=== PATIENT | female | born 1960 | race Caucasian/White ===

== ENCOUNTER → 2016-10-30 | Outpatient (CLI) | payer OTHER ==
--- NOTE | 2016-10-31 15:44 | Diagnostic Imaging Report ---
Bilateral screening mammogram 2D views with tomosynthesis The current study was also evaluated with a Computer Aided Detection (CAD) system. INDICATION: Screening. No current complaints stated on the questionnaire. COMPARISON: None. This is a baseline exam. FINDINGS: The breasts are composed of heterogeneously dense parenchyma which may decrease mammographic sensitivity. There are benign-appearing calcifications. IMPRESSION: Dense fibroglandular tissues with no definite focal lesion identified. Annual screening mammogram is recommended. ACR BI-RADS Category 2: Benign findings. Result letter will be mailed to the patient. Note: At least 10% of breast cancer is not imaged by mammography. Dictated by: Dictated on workstation # [id number]
== END ==
LOC: RAD 07:56 → EDUNIT# 10:15
PROVIDERS: ATTEND Nurse Practitioner Family
DX: Z12.31 Encounter for screening mammogram for malignant neoplasm of breast (principal)
CPT/HCPCS: 77067

== ENCOUNTER → 2016-10-30 | Outpatient (CLI) | payer OTHER ==
--- NOTE | 2016-10-30 09:23 | Diagnostic Imaging Report ---
INDICATION: Abnormal lab work. TECHNIQUE: Multiple real-time alvarado scale sonographic images of the abdomen. CORRELATION STUDY: None FINDINGS: LIVER: 17 cm in length. Normal echotexture. GALLBLADDER: There is presence of multiple gallstones. This predominately fills the gallbladder lumen and are non-mobile. There is gallbladder wall thickening at 3-4 mm. The gallstones largely shadow the gallbladder wall. COMMON BILE DUCT: Normal at 5 mm. PANCREAS: Largely obscured by overlying bowel gas. SPLEEN: Enlarged at 18.2 x 7.0 x 7.2 cm. ABDOMINAL AORTA: Unremarkable, nonaneurysmal. INFERIOR VENA CAVA: Limited in visualization. RIGHT KIDNEY: 9.5 cm. Unremarkable. LEFT KIDNEY: 9.8 cm. Unremarkable. ASCITES: None. IMPRESSION: 1. Cholelithiasis, with multiple gallstones essentially filling the lumen of the gallbladder. There is gallbladder wall thickening which may reflect changes of chronic cholecystitis. No significant bile duct dilatation. 2. Splenomegaly. Etiology or significance indeterminate. Dictated by: Dictated on workstation # [id number]
== END ==
LOC: RAD 07:54
PROVIDERS: ATTEND Nurse Practitioner Family
DX: K80.20 Calculus of gallbladder without cholecystitis without obstruction (principal); R16.1 Splenomegaly, not elsewhere classified; E80.4 Gilbert syndrome
CPT/HCPCS: 76700

== ENCOUNTER → 2017-01-08 | Outpatient (CLI) | payer OTHER | LOC: LAB 12:12 | PROVIDERS: ATTEND Nurse Practitioner Family | DX: R76.8 Other specified abnormal immunological findings in serum; R17 Unspecified jaundice; R16.1 Splenomegaly, not elsewhere classified | CPT/HCPCS: 36415; 82595 ==

== ENCOUNTER 2017-04-08 08:51 | Outpatient (CLI) | payer SELFPAY ==
[~2017-04-08] VITALS: Ht 154.9 cm; Wt 66.7 kg
== END 2017-04-08 08:53 ==
LOC: PREOP 08:51
PROVIDERS: ATTEND Surgery
DX: Z01.818 Encounter for other preprocedural examination (principal); E80.6 Other disorders of bilirubin metabolism

== ENCOUNTER 2017-04-18 10:10 | Outpatient (RCR) | payer OTHER ==
[2017-01-24 11:00] LABS: BILIRUBIN,DIRECT 0.4 MG/DL (0.0-0.3)
[2017-02-07 12:18] LABS: ABSOLUTE RETIC # 92 10e9/L (24-90); BASOPHILS # (AUTO) 0.1 10^3/uL (0.0-0.1); BASOPHILS % (AUTO) 1 % (0-10); EOSINOPHILS # (AUTO) 0.2 10^3/uL (0.0-0.3); EOSINOPHILS % (AUTO) 2 % (0-10); HEMATOCRIT 39 % (35-52); LYMPHOCYTES # (AUTO) 1.5 X 10^3 (1.0-4.0); LYMPHOCYTES % (AUTO) 23 % (12-44); MEAN CORPUSCULAR HEMOGLOBIN 30 PG (25-34); MEAN CORPUSCULAR HGB CONC 34 G/DL (32-36); MEAN CORPUSCULAR VOLUME 89 FL (80-99); MEAN PLATELET VOLUME 10.7 FL (7.4-10.4); MONOCYTES # (AUTO) 0.4 X 10^3 (0.0-1.0); MONOCYTES % (AUTO) 7 % (0-12); NEUTROPHILS # (AUTO) 4.3 X 10^3 (1.8-7.8); NEUTROPHILS % (AUTO) 67 % (42-75); PLATELET COUNT 234 10^3/uL (130-400); RED BLOOD COUNT 4.34 10^6/uL (4.35-5.85); RED CELL DISTRIBUTION WIDTH 20.1 % (10.0-14.5); RETICULOCYTE % 2.12 % (0.50-2.40); WHITE BLOOD COUNT 6.4 10^3/uL (4.3-11.0)
[2017-02-07 12:25] LABS: BILIRUBIN,URINE NEGATIVE (NEGATIVE); CLARITY,URINE CLEAR; COLOR,URINE YELLOW; GLUCOSE, URINE (UA) NEGATIVE (NEGATIVE); KETONES,URINE NEGATIVE (NEGATIVE); LEUKOCYTE ESTERASE ,URINE 1+ (NEGATIVE); NITRITE,URINE NEGATIVE (NEGATIVE); PH,URINE 6.5 (5-9); PROTEIN,URINE NEGATIVE (NEGATIVE); UROBILINOGEN,URINE NORMAL (NORMAL)
[2017-02-07 12:36] LABS: BACTERIA,URINE NEGATIVE /HPF; SQUAMOUS EPITHELIAL CELL,UR 0-2 /HPF; WBC,URINE 0-2 /HPF
[2017-02-07 12:38] LABS: ALANINE AMINOTRANSFERASE 14 U/L (0-55); ALBUMIN 4.5 GM/DL (3.2-4.5); ALKALINE PHOSPHATASE 77 U/L (40-136); BILIRUBIN,DIRECT 0.4 MG/DL (0.0-0.3); BILIRUBIN,TOTAL 4.1 MG/DL (0.1-1.0); BUN/CREATININE RATIO 7; CALCIUM 9.4 MG/DL (8.5-10.1); CARBON DIOXIDE 29 MMOL/L (21-32); CHLORIDE 103 MMOL/L (98-107); CREATININE SERUM 0.75 MG/DL (0.60-1.30); ERYTHROCYTE SEDIMENTATION RATE 8 MM/HR (0-30); GFR ESTIMATED > 60; GLUCOSE 103 MG/DL (70-105); POTASSIUM 3.9 MMOL/L (3.6-5.0); SODIUM 140 MMOL/L (135-145)
[2017-02-07 12:47] LABS: ANISOCYTOSIS MODERATE; EOSINOPHILS % (MANUAL) 2 %; LYMPHOCYTES % (MANUAL) 20 %; MONOCYTES % (MANUAL) 8 %; NEUTROPHILS % (MANUAL) 70 %
[2017-03-13 10:53] LABS: ABSOLUTE RETIC # 105 10e9/L (24-90); BASOPHILS # (AUTO) 0.1 10^3/uL (0.0-0.1); BASOPHILS % (AUTO) 1 % (0-10); EOSINOPHILS # (AUTO) 0.3 10^3/uL (0.0-0.3); EOSINOPHILS % (AUTO) 4 % (0-10); HEMATOCRIT 39 % (35-52); HEMOGLOBIN 12.6 G/DL (11.5-16.0); LYMPHOCYTES # (AUTO) 1.2 X 10^3 (1.0-4.0); LYMPHOCYTES % (AUTO) 19 % (12-44); MEAN CORPUSCULAR HEMOGLOBIN 29 PG (25-34); MEAN CORPUSCULAR HGB CONC 32 G/DL (32-36); MEAN CORPUSCULAR VOLUME 90 FL (80-99); MEAN PLATELET VOLUME 10.4 FL (7.4-10.4); MONOCYTES # (AUTO) 0.6 X 10^3 (0.0-1.0); MONOCYTES % (AUTO) 9 % (0-12); NEUTROPHILS # (AUTO) 4.4 X 10^3 (1.8-7.8); NEUTROPHILS % (AUTO) 68 % (42-75); PLATELET COUNT 245 10^3/uL (130-400); RED BLOOD COUNT 4.34 10^6/uL (4.35-5.85); RED CELL DISTRIBUTION WIDTH 20.9 % (10.0-14.5); RETICULOCYTE % 2.41 % (0.50-2.40); WHITE BLOOD COUNT 6.5 10^3/uL (4.3-11.0)
[2017-03-13 11:19] LABS: ALANINE AMINOTRANSFERASE 11 U/L (0-55); ALBUMIN 4.1 GM/DL (3.2-4.5); ALKALINE PHOSPHATASE 80 U/L (40-136); BILIRUBIN,TOTAL 3.5 MG/DL (0.1-1.0); BUN/CREATININE RATIO 8; CALCIUM 9.2 MG/DL (8.5-10.1); CARBON DIOXIDE 33 MMOL/L (21-32); CHLORIDE 103 MMOL/L (98-107); CREATININE SERUM 0.74 MG/DL (0.60-1.30); GFR ESTIMATED > 60; GLUCOSE 129 MG/DL (70-105); SODIUM 141 MMOL/L (135-145); TOTAL PROTEIN 6.7 GM/DL (6.4-8.2)
[2017-03-13 11:34] LABS: BAND NEUTROPHILS 1 %; BASOPHILS % (MANUAL) 0 %; EOSINOPHILS % (MANUAL) 6 %; LYMPHOCYTES % (MANUAL) 14 %; MONOCYTES % (MANUAL) 9 %; NEUTROPHILS % (MANUAL) 70 %
[2017-03-13 11:35] LABS: ANISOCYTOSIS MODERATE; MICROCYTOSIS SLIGHT; POLYCHROMASIA SLIGHT
[2017-04-18 10:41] LABS: BASOPHILS # (AUTO) 0.1 10^3/uL (0.0-0.1); BASOPHILS % (AUTO) 1 % (0-10); EOSINOPHILS # (AUTO) 0.2 10^3/uL (0.0-0.3); EOSINOPHILS % (AUTO) 4 % (0-10); HEMATOCRIT 32 % (35-52); HEMOGLOBIN 11.1 G/DL (11.5-16.0); LYMPHOCYTES # (AUTO) 1.1 X 10^3 (1.0-4.0); LYMPHOCYTES % (AUTO) 22 % (12-44); MEAN CORPUSCULAR HEMOGLOBIN 29 PG (25-34); MEAN CORPUSCULAR HGB CONC 34 G/DL (32-36); MEAN CORPUSCULAR VOLUME 85 FL (80-99); MEAN PLATELET VOLUME 10.3 FL (7.4-10.4); MONOCYTES # (AUTO) 0.3 X 10^3 (0.0-1.0); MONOCYTES % (AUTO) 6 % (0-12); NEUTROPHILS # (AUTO) 3.2 X 10^3 (1.8-7.8); NEUTROPHILS % (AUTO) 67 % (42-75); PLATELET COUNT 221 10^3/uL (130-400); RED BLOOD COUNT 3.81 10^6/uL (4.35-5.85); RED CELL DISTRIBUTION WIDTH 19.9 % (10.0-14.5); WHITE BLOOD COUNT 4.8 10^3/uL (4.3-11.0)
[2017-04-18 10:58] LABS: ALANINE AMINOTRANSFERASE 16 U/L (0-55); ALBUMIN 4.2 GM/DL (3.2-4.5); ALKALINE PHOSPHATASE 79 U/L (40-136); BILIRUBIN,TOTAL 4.2 MG/DL (0.1-1.0); BUN/CREATININE RATIO 7; CALCIUM 9.4 MG/DL (8.5-10.1); CARBON DIOXIDE 30 MMOL/L (21-32); CHLORIDE 100 MMOL/L (98-107); CREATININE SERUM 0.71 MG/DL (0.60-1.30); GFR ESTIMATED > 60; GLUCOSE 115 MG/DL (70-105); POTASSIUM 3.8 MMOL/L (3.6-5.0); SODIUM 140 MMOL/L (135-145); TOTAL PROTEIN 6.6 GM/DL (6.4-8.2)
== END 2017-04-24 | disposition home or self-care (01) ==
LOC: ONC 10:10
PROVIDERS: ATTEND Internal Medicine Hematology & Oncology
DX: E80.6 Other disorders of bilirubin metabolism (principal); R17 Unspecified jaundice; I10 Essential (primary) hypertension; J44.9 Chronic obstructive pulmonary disease, unspecified; F17.210 Nicotine dependence, cigarettes, uncomplicated
CPT/HCPCS: 36415; 80053; 81000; 82247; 82248; 82595; 82784; 82955; 83010; 83070; 83615; 84155; 84165; 85007; 85025; 85027; 85045; 85652; 86038; 86141; 86157; 86160; 86225; 86430; 86703; 86880; 99213; 99214

== ENCOUNTER 2017-04-25 20:02 | Observation (INO) | payer SELFPAY ==
[~2017-04-25] VITALS: Ht 152.4 cm; Wt 63.5 kg
[2017-04-25] MEDS ORDERED: NS IV 1000 ML 1,000 ML IV STA (20:08)
--- OUTSIDE RECORDS SUMMARY | 2017-04-25 20:08 | XMS REPORT | Continuity of Care Document ---
Author Author [facility] Address Unknown Phone Unavailable Allergies Active Description Code Type Severity Reaction Onset Reported/Identified Relationship to Patient Clinical Status Yes Penicillins Drug Allergy N/A N/A 04/05/2009 Medications There is no data. 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 01/15/2010 COREY MORALEZ DO 110.5 DERMATOPHYTOSIS OF THE BODY 01/15/2010 COREY MORALEZ DO 110.5 DERMATOPHYTOSIS OF THE BODY 01/23/2011 COREY MORALEZ DO 110.2 DERMATOPHYTOSIS OF HAND 01/23/2011 COREY MORALEZ DO 110.2 DERMATOPHYTOSIS OF HAND 06/18/2014 COREY MORALEZ DO 692.9 DERMATITIS CONTACT UNSPECIFIED 06/18/2014 COREY MORALEZ DO 692.9 DERMATITIS CONTACT UNSPECIFIED 07/06/2014 COREY MORALEZ DO 698.9 UNSPECIFIED PRURITIC DISORDER 07/06/2014 COREY MORALEZ DO 698.9 UNSPECIFIED PRURITIC DISORDER 07/11/2014 COREY MORALEZ DO 112.3 CANDIDIASIS OF SKIN AND NAILS 07/11/2014 COREY MORALEZ DO 691.8 ECZEMA- ATOPIC Procedures There is no data. Results There is no data. Encounters ACCT No. Visit Date/Time Discharge Status Pt. Type Provider Facility Loc./Unit Complaint [id number] 07/11/2014 15:02:00 07/11/2014 23:59:59 [facility] Outpatient COREY MORALEZ DO [id number] 07/06/2014 08:44:00 07/06/2014 23:59:59 [facility] Outpatient COREY MORALEZ DO
[2017-04-25] MEDS ORDERED: ONDANSETRON 4 MG/2 ML (SDV) Z0FRAN IVP ONE (20:15)
[2017-04-25 20:16] LABS: BASOPHILS % (AUTO) 0 % (0-10); EOSINOPHILS % (AUTO) 0 % (0-10); HEMATOCRIT 33 % (35-52); HEMOGLOBIN 11.6 G/DL (11.5-16.0); LYMPHOCYTES # (AUTO) 0.5 X 10^3 (1.0-4.0); LYMPHOCYTES % (AUTO) 5 % (12-44); MEAN CORPUSCULAR HEMOGLOBIN 30 PG (25-34); MEAN CORPUSCULAR HGB CONC 36 G/DL (32-36); MEAN CORPUSCULAR VOLUME 84 FL (80-99); MEAN PLATELET VOLUME 11.3 FL (7.4-10.4); MONOCYTES # (AUTO) 0.6 X 10^3 (0.0-1.0); MONOCYTES % (AUTO) 6 % (0-12); NEUTROPHILS # (AUTO) 8.5 X 10^3 (1.8-7.8); NEUTROPHILS % (AUTO) 89 % (42-75); PLATELET COUNT 179 10^3/uL (130-400); RED BLOOD COUNT 3.88 10^6/uL (4.35-5.85); RED CELL DISTRIBUTION WIDTH 20.8 % (10.0-14.5); WHITE BLOOD COUNT 9.6 10^3/uL (4.3-11.0)
[2017-04-25 20:27] LABS: CLARITY,URINE SLIGHTLY CLOUDY; COLOR,URINE AMBER; GLUCOSE, URINE (UA) NEGATIVE (NEGATIVE); KETONES,URINE 1+ (NEGATIVE); LEUKOCYTE ESTERASE ,URINE 3+ (NEGATIVE); NITRITE,URINE POSITIVE (NEGATIVE); PH,URINE 5 (5-9); PROTEIN,URINE 2+ (NEGATIVE); UROBILINOGEN,URINE 4 MG/DL (NORMAL)
[2017-04-25 20:33] LABS: BAND NEUTROPHILS 20 %; BASOPHILS % (MANUAL) 1 %; EOSINOPHILS % (MANUAL) 0 %; LYMPHOCYTES % (MANUAL) 5 %; MONOCYTES % (MANUAL) 3 %; NEUTROPHILS % (MANUAL) 71 %; RBC MORPH NORMAL
[2017-04-25 20:40] LABS: BACTERIA,URINE MODERATE /HPF; BILIRUBIN,URINE 1+ (NEGATIVE); SQUAMOUS EPITHELIAL CELL,UR 0-2 /HPF; WBC,URINE 50-100 /HPF
[2017-04-25 20:40] LABS: ALBUMIN 3.8 GM/DL (3.2-4.5); BILIRUBIN,TOTAL 10.2 MG/DL (0.1-1.0); POTASSIUM 4.1 MMOL/L (3.6-5.0); TOTAL PROTEIN 6.3 GM/DL (6.4-8.2)
--- NOTE | 2017-04-25 20:42 | ED GI ---
General Chief Complaint: Abdominal/GI Problems Stated Complaint: N/V Nursing Triage Note: PATIENT STATES SHE HAS BEEN HAVING NAUSEA NAD VOMITING X3 DAYS. 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 Sepsis Screen: No Definite Risk Source of Information: Patient, EMS Exam Limitations: No Limitations History of Present Illness Date Seen by Provider: Apr 25, 2017 Time Seen By Provider: 20:15 Initial Comments Here with report of nausea and vomiting that has increased over the last 3 days. Ultimately required EMS transport here due to nausea and vomiting. She is better now. Patient is jaundiced and has ongoing workup for elevated bilirubin. She follows with the cancer center with Dr. Rincon. She has not had anything for nausea. Denies fever or chills. Does report dysuria for the past several days. Timing/Duration: 2-3 Days Severity/Quality: Moderate, Other (nausea and vomiting) Location: Generalized Abdomen Radiation: No Radiation Activities at Onset: None Modifying Factors: Worsens With Eating, Improves With Vomiting Associated Symptoms: No Back Pain, No Chest Pain, No Fever/Chills, Fatigue, Nausea/Vomiting, No Shortness of Air, Weakness Allergies and Home Medications Allergies Coded Allergies: Penicillins (Verified Allergy, Unknown, 04/08/17) latex (Verified Allergy, Unknown, RASH, 04/08/17) Review of Systems Constitutional: see HPI, No chills, No fever, weakness EENTM: No Symptoms Reported Respiratory: No Symptoms Reported Cardiovascular: No Symptoms Reported Gastrointestinal: See HPI, Denies Diarrhea, Nausea, Vomiting Genitourinary: No Symptoms Reported Musculoskeletal: no symptoms reported Skin: no symptoms reported All Other Systems Reviewed Negative Unless Noted: Yes Past Rjamsah-Tzwzqz-Urzbvs Hx Patient Social History Alcohol Use: Denies Use Recreational Drug Use: No Smoking Status: Current Everyday Smoker Type Used: Cigarettes 2nd Hand Smoke Exposure: Yes Recent Foreign Travel: No Contact w/Someone Who Travel: No Recent Infectious Disease Expo: No Recent Hopitalizations: No Seasonal Allergies Seasonal Allergies: No Surgeries History of Surgeries: Yes Surgeries: Tubal Ligation Respiratory History of Respiratory Disorde: Yes Respiratory Disorders: COPD Cardiovascular History of Cardiac Disorders: No (possible hypertension) Neurological History of Neurological Disord: No Gastrointestinal History of Gastrointestinal Di: Yes (hyperbilirubinemia, jaundice) Musculoskeletal History of Musculoskeletal Dis: No Endocrine History of Endocrine Disorders: No Cancer History of Cancer: No Psychosocial History of Psychiatric Problem: No Integumentary History of Skin or Integumenta: Yes Skin/Integumentary Disorders: Eczema Blood Transfusions History of Blood Disorders: Yes (anemia) Reviewed Nursing Assessment Reviewed/Agree w Nursing PMH: Yes Family Medical History Significant Family History: No Pertinent Family Hx Physical Exam Vital Signs VS - Last 72 Hours, by Label 04/25/17 20:12 Temp 100.3 Pulse 118 Resp 20 B/P (MAP) Pulse Ox 97 O2 Delivery Room Air Capillary Refill : Less Than 3 Seconds General Appearance: WD/WN, no apparent distress HEENT: PERRL/EOMI, normal ENT inspection, pharynx normal, scleral icterus (R), scleral icterus (L) Neck: full range of motion, supple Respiratory: lungs clear, normal breath sounds Cardiovascular: no murmur, tachycardia Gastrointestinal: non tender, soft Extremities: non-tender, normal inspection Back: normal inspection, no CVA tenderness, no vertebral tenderness Neurologic/Psychiatric: alert, normal mood/affect, oriented x 3 Skin: warm/dry, jaundice Progress/Results/Core Measures Results/Orders Lab Results Laboratory Tests Test 04/25/17 20:08 04/25/17 20:20 Range/Units White Blood Count 9.6 4.3-11.0 10^3/uL Red Blood Count 3.88 L 4.35-5.85 10^6/uL Hemoglobin 11.6 11.5-16.0 G/DL Hematocrit 33 L 35-52 % Mean Corpuscular Volume 84 80-99 FL Mean Corpuscular Hemoglobin 30 25-34 PG Mean Corpuscular Hemoglobin Concent 36 32-36 G/DL Red Cell Distribution Width 20.8 H 10.0-14.5 % Platelet Count 179 130-400 10^3/uL Mean Platelet Volume 11.3 H 7.4-10.4 FL Neutrophils (%) (Auto) 89 H 42-75 % Lymphocytes (%) (Auto) 5 L 12-44 % Monocytes (%) (Auto) 6 0-12 % Eosinophils (%) (Auto) 0 0-10 % Basophils (%) (Auto) 0 0-10 % Neutrophils # (Auto) 8.5 H 1.8-7.8 X 10^3 Lymphocytes # (Auto) 0.5 L 1.0-4.0 X 10^3 Monocytes # (Auto) 0.6 0.0-1.0 X 10^3 Eosinophils # (Auto) 0.0 0.0-0.3 10^3/uL Basophils # (Auto) 0.0 0.0-0.1 10^3/uL Neutrophils % (Manual) 71 % Lymphocytes % (Manual) 5 % Monocytes % (Manual) 3 % Eosinophils % (Manual) 0 % Basophils % (Manual) 1 % Band Neutrophils 20 % Blood Morphology Comment NORMAL Sodium Level 136 135-145 MMOL/L Potassium Level 4.1 3.6-5.0 MMOL/L Chloride Level 97 L 98-107 MMOL/L Carbon Dioxide Level 25 21-32 MMOL/L Anion Gap 14 5-14 MMOL/L Blood Urea Nitrogen 27 H 7-18 MG/DL Creatinine 1.00 0.60-1.30 MG/DL Estimat Glomerular Filtration Rate 58 BUN/Creatinine Ratio 27 Glucose Level 129 H 70-105 MG/DL Calcium Level 9.0 8.5-10.1 MG/DL Total Bilirubin 10.2 H 0.1-1.0 MG/DL Aspartate Amino Transf (AST/SGOT) 27 5-34 U/L Alanine Aminotransferase (ALT/SGPT) 15 0-55 U/L Alkaline Phosphatase 73 40-136 U/L C-Reactive Protein High Sensitivity 23.40 H 0.00-0.50 MG/DL Total Protein 6.3 L 6.4-8.2 GM/DL Albumin 3.8 3.2-4.5 GM/DL Urine Color DAVID H Urine Clarity SLIGHTLY CLOUDY Urine pH 5 5-9 Urine Specific [place] 1.020 1.016-1.022 Urine Protein 2+ H NEGATIVE Urine Glucose (UA) NEGATIVE NEGATIVE Urine Ketones 1+ H NEGATIVE Urine Nitrite POSITIVE H NEGATIVE Urine Bilirubin 1+ H NEGATIVE Urine Urobilinogen 4 H NORMAL MG/DL Urine Leukocyte Esterase 3+ H NEGATIVE Urine RBC (Auto) 3+ H NEGATIVE Urine RBC 5-10 H /HPF Urine WBC 50-100 H /HPF Urine Squamous Epithelial Cells 0-2 /HPF Urine Crystals NONE /LPF Urine Bacteria MODERATE H /HPF Urine Casts NONE /LPF Urine Mucus NEGATIVE /LPF Urine Culture Indicated YES My Orders Orders - BRIAN DENNY MD Ondansetron Injection (Zofran Injectio (04/25/17 20:15) Saline Lock/Iv-Start (04/25/17 20:08) Cbc With Automated Diff (04/25/17 20:08) Comprehensive Metabolic Panel (04/25/17 20:08) Hs C Reactive Protein (04/25/17 20:08) Ua Culture If Indicated (04/25/17 20:08) Ns Iv 1000 Ml (Sodium Chloride 0.9%) (04/25/17 20:08) Manual Differential (04/25/17 20:08) Urine Culture (04/25/17 20:20) Ceftriaxone Injection (Rocephin Injectio (04/25/17 21:15) Lactic Acid Analyzer (04/25/17 22:07) Blood Culture (04/25/17 22:07) Medications Given in ED Current Medications Medications Dose Ordered Sig/Diana Route Start Time Stop Time Status Last Admin Dose Admin Ceftriaxone Sodium 1000 mg/ Dextrose/Water 50 ml @ 100 mls/hr ONCE ONCE IV 04/25/17 21:15 04/25/17 21:44 DC 04/25/17 21:22 100 MLS/HR Ondansetron HCl 4 mg ONCE ONCE IVP 04/25/17 20:15 04/25/17 20:16 DC 04/25/17 20:27 4 MG Vital Signs/I&O Vital Sign - Last 12Hours 04/25/17 20:12 Temp 100.3 Pulse 118 Resp 20 B/P (MAP) Pulse Ox 97 O2 Delivery Room Air Progress Note : Progress Note Seen and evaluated. IV, labs, UA, saline 1 L bolus, Zofran 4 mg IV ordered. Monitor patient. Rocephin 1 g IV for urinary tract infection. We will continue outpatient treatment. All of findings and concerns discussed with patient. She agrees with plan. 2202: Patient still feeling not well. Definitely has urinary tract infection. In reviewing her labs, CRP is quite elevated at greater than 20. Patient has elevated bilirubin but has known bilirubin disorder that is being worked up. It is higher than previous. She is better with fluids but I am concerned about the urinary tract infection and her ability to tolerate oral antibiotics and given her other underlying disorders, admission seems more appropriate at this point. I did discuss the case with Dr. Rogers, on-call for [facility]. He agrees to admission. We will continue IV antibiotics and continue hydration and recheck labs. We did not get blood cultures and lactic acid before antibiotics as patient was going to be discharged home with planned changed. We will draw blood cultures and lactic acid now. Departure Communication (Admissions) Time/Spoke to Admitting Phy: 22:02 Impression Impression: Primary Impression: Urinary tract infection Qualified Codes: N30.00 - Acute cystitis without hematuria Additional Impression: Nausea and vomiting Qualified Codes: R11.2 - Nausea with vomiting, unspecified Disposition: ADMITTED INPATIENT Condition: Stable Admissions Decision to Admit Reason: Admit from ER (General) Decision to Admit/Date: Apr 25, 2017 Time/Decision to Admit Time: 22:02 Departure-Patient Inst. Referrals: COREY MORALEZ DO (PCP) Primary Care Physician JHON HERNANDEZ (Family) Primary Care Physician Patient Instructions: Nausea and Vomiting, Adult (DC), Urinary Tract Infection , Adult (DC) Add. Discharge Instructions: All discharge instructions reviewed with patient and/or family. Voiced understanding. BRIAN DENNY MD Apr 25, 2017 20:42
[2017-04-25] MEDS ORDERED: cefTRIAXone INJECTION 1,000 MG in D5W 50 ML IVPB SOLUTION 50 ML IV ONE (21:15)
[2017-04-26] VITALS: BP 106/64
[2017-04-26] MEDS ORDERED: RT-ALBUTEROL SULF 2.5 MG/3 ML PRE-MIX VIAL INH PRN (01:00)
[2017-04-26] MEDS: ONDANSETRON 4 MG/2 ML (SDV) Z0FRAN IVP PRN ×2 (01:09→09:11)
[2017-04-26] MEDS: NS IV 1000 ML 1,000 ML IV SCH ×3 (01:09→17:23)
[2017-04-26] MEDS: IBUPROFEN 600 MG (MOTRIN) TAB PO PRN ×2 (01:10→20:01)
[2017-04-26 04:25] VITALS: BP 102/63
[2017-04-26 05:59] LABS: BASOPHILS % (AUTO) 0 % (0-10); EOSINOPHILS % (AUTO) 0 % (0-10); HEMATOCRIT 26 % (35-52); HEMOGLOBIN 9.1 G/DL (11.5-16.0); LYMPHOCYTES # (AUTO) 0.6 X 10^3 (1.0-4.0); LYMPHOCYTES % (AUTO) 11 % (12-44); MEAN CORPUSCULAR HEMOGLOBIN 29 PG (25-34); MEAN CORPUSCULAR HGB CONC 35 G/DL (32-36); MEAN CORPUSCULAR VOLUME 85 FL (80-99); MEAN PLATELET VOLUME 10.9 FL (7.4-10.4); MONOCYTES # (AUTO) 0.3 X 10^3 (0.0-1.0); MONOCYTES % (AUTO) 5 % (0-12); NEUTROPHILS # (AUTO) 4.7 X 10^3 (1.8-7.8); NEUTROPHILS % (AUTO) 84 % (42-75); PLATELET COUNT 152 10^3/uL (130-400); RED CELL DISTRIBUTION WIDTH 20.5 % (10.0-14.5); WHITE BLOOD COUNT 5.6 10^3/uL (4.3-11.0)
[2017-04-26 06:35] LABS: ALANINE AMINOTRANSFERASE 11 U/L (0-55); ALBUMIN 3.1 GM/DL (3.2-4.5); ALKALINE PHOSPHATASE 52 U/L (40-136); BILIRUBIN,TOTAL 7.1 MG/DL (0.1-1.0); BUN/CREATININE RATIO 26; CALCIUM 8.3 MG/DL (8.5-10.1); CARBON DIOXIDE 24 MMOL/L (21-32); CHLORIDE 102 MMOL/L (98-107); CREATININE SERUM 0.78 MG/DL (0.60-1.30); GFR ESTIMATED > 60; GLUCOSE 108 MG/DL (70-105); POTASSIUM 3.8 MMOL/L (3.6-5.0); SODIUM 136 MMOL/L (135-145); TOTAL PROTEIN 5.3 GM/DL (6.4-8.2)
--- NOTE | 2017-04-26 06:39 | Diagnostic Imaging Report ---
INDICATION: Cough with leg swelling and abdominal pain. Comparison with previous CT of the chest from 02/12/2017. FINDINGS: Portable chest shows the lungs to be well-aerated. There are no infiltrates. No masses are present. No hilar adenopathy. Aorta is not enlarged. No evidence of pulmonary edema. No pneumothorax or pleural effusions. Thoracic aortic aneurysm again noted as reported on CT along the aortic root. IMPRESSION: Ascending aortic root aneurysm with no acute changes demonstrated. Dictated by: Dictated on workstation # [id number]
--- NOTE | 2017-04-26 07:04 | History & Physicial ([facility]S) ---
HPI History of Present Illness: 56-year-old female admitted through via [facility] emergency department during the evening of April 25, 2017 after having nausea and vomiting for the previous 3 days. Patient was brought to the emergency department via EMS. She does report going to [facility] and has been receiving medical care for jaundice and elevated bilirubin which is not yet explained according to patient. She does report she has had uncomfortable feeling when urination over the past several days. There is been no reports of any fever or chilling. Source: patient Exam Limitations: clinical condition Date seen by provider: Apr 26, 2017 Time Seen by Provider: 07:00 Attending Physician Mariana Leonard DO PCP Mariana Leonard DO Consult Date of Admission Apr 25, 2017 at 22:20 Home Medications Home Medications Reviewed patient Home Medication Reconciliation Form Allergies Coded Allergies: Penicillins (Verified Allergy, Unknown, 04/08/17) latex (Verified Allergy, Unknown, RASH, 04/08/17) XBA-Ihfnga-Rkrnrd Hx Patient Social History Alcohol Use: Denies Use Recreational Drug Use: No Smoking Status: Current Everyday Smoker Type Used: Cigarettes 2nd Hand Smoke Exposure: Yes Recent Foreign Travel: No Contact w/other who traveled: No Recent Hopitalizations: No Recent Infectious Disease Expo: No Physical Abuse Screen: No Sexual Abuse: No Family Medical History Significant Family History: No Pertinent Family Hx Family History: Alcoholism 19 FATHER Arthritis 19 MOTHER G8 BROTHER Diabetes mellitus 19 MOTHER G8 BROTHER G8 SISTER Review of Systems ([facility]) Constitutional: see HPI Reviewed Test Results Reviewed Test Results Lab Laboratory Tests Test 04/25/17 20:08 04/25/17 20:20 04/25/17 22:35 04/26/17 05:46 Range/Units White Blood Count 9.6 5.6 4.3-11.0 10^3/uL Red Blood Count 3.88 L 3.10 L 4.35-5.85 10^6/uL Hemoglobin 11.6 9.1 #L 11.5-16.0 G/DL Hematocrit 33 L 26 L 35-52 % Mean Corpuscular Volume 84 85 80-99 FL Mean Corpuscular Hemoglobin 30 29 25-34 PG Mean Corpuscular Hemoglobin Concent 36 35 32-36 G/DL Red Cell Distribution Width 20.8 H 20.5 H 10.0-14.5 % Platelet Count 179 152 130-400 10^3/uL Mean Platelet Volume 11.3 H 10.9 H 7.4-10.4 FL Neutrophils (%) (Auto) 89 H 84 H 42-75 % Lymphocytes (%) (Auto) 5 L 11 L 12-44 % Monocytes (%) (Auto) 6 5 0-12 % Eosinophils (%) (Auto) 0 0 0-10 % Basophils (%) (Auto) 0 0 0-10 % Neutrophils # (Auto) 8.5 H 4.7 1.8-7.8 X 10^3 Lymphocytes # (Auto) 0.5 L 0.6 L 1.0-4.0 X 10^3 Monocytes # (Auto) 0.6 0.3 0.0-1.0 X 10^3 Eosinophils # (Auto) 0.0 0.0 0.0-0.3 10^3/uL Basophils # (Auto) 0.0 0.0 0.0-0.1 10^3/uL Neutrophils % (Manual) 71 % Lymphocytes % (Manual) 5 % Monocytes % (Manual) 3 % Eosinophils % (Manual) 0 % Basophils % (Manual) 1 % Band Neutrophils 20 % Blood Morphology Comment NORMAL Sodium Level 136 136 135-145 MMOL/L Potassium Level 4.1 3.8 3.6-5.0 MMOL/L Chloride Level 97 L 102 98-107 MMOL/L Carbon Dioxide Level 25 24 21-32 MMOL/L Anion Gap 14 10 5-14 MMOL/L Blood Urea Nitrogen 27 H 20 H 7-18 MG/DL Creatinine 1.00 0.78 0.60-1.30 MG/DL Estimat Glomerular Filtration Rate 58 > 60 BUN/Creatinine Ratio 27 26 Glucose Level 129 H 108 H 70-105 MG/DL Calcium Level 9.0 8.3 L 8.5-10.1 MG/DL Total Bilirubin 10.2 H 7.1 #H 0.1-1.0 MG/DL Aspartate Amino Transf (AST/SGOT) 27 20 5-34 U/L Alanine Aminotransferase (ALT/SGPT) 15 11 0-55 U/L Alkaline Phosphatase 73 52 40-136 U/L C-Reactive Protein High Sensitivity 23.40 H 24.00 H 0.00-0.50 MG/DL Total Protein 6.3 L 5.3 L 6.4-8.2 GM/DL Albumin 3.8 3.1 L 3.2-4.5 GM/DL Urine Color DAVID H Urine Clarity SLIGHTLY CLOUDY Urine pH 5 5-9 Urine Specific [place] 1.020 1.016-1.022 Urine Protein 2+ H NEGATIVE Urine Glucose (UA) NEGATIVE NEGATIVE Urine Ketones 1+ H NEGATIVE Urine Nitrite POSITIVE H NEGATIVE Urine Bilirubin 1+ H NEGATIVE Urine Urobilinogen 4 H NORMAL MG/DL Urine Leukocyte Esterase 3+ H NEGATIVE Urine RBC (Auto) 3+ H NEGATIVE Urine RBC 5-10 H /HPF Urine WBC 50-100 H /HPF Urine Squamous Epithelial Cells 0-2 /HPF Urine Crystals NONE /LPF Urine Bacteria MODERATE H /HPF Urine Casts NONE /LPF Urine Mucus NEGATIVE /LPF Urine Culture Indicated YES Lactic Acid Level 1.15 0.50-2.00 MMOL/L Radiology NAME: SOPHIE MILLARD [facility] REC#: [id number] PT STATUS: ADM Alicia : 1960 PHYSICIAN: BRIAN DENNY MD ADMIT DATE: 04/25/17/ Draft Date of Exam:04/25/17 CHEST 1 VIEW, AP/PA ONLY INDICATION: Cough with leg swelling and abdominal pain. Comparison with previous CT of the chest from 02/12/2017. FINDINGS: Portable chest shows the lungs to be well-aerated. There are no infiltrates. No masses are present. No hilar adenopathy. Aorta is not enlarged. No evidence of pulmonary edema. No pneumothorax or pleural effusions. Thoracic aortic aneurysm again noted as reported on CT along the aortic root. IMPRESSION: Ascending aortic root aneurysm with no acute changes demonstrated. Dictated on workstation # [id number] Dict: 04/26/1722 Trans: 04/26/17 0639 JAME [id number] Interpreted by: MANISHA WOODWARD MD Electronically signed by: Physical Exam-([facility]) Physical Exam Vital Signs VS - Last 72 Hours, by Label 04/25/17 04/25/17 04/25/17 04/26/17 20:12 23:00 23:18 00:00 Temp 100.3 100.3 100.3 100.8 Pulse 118 118 118 115 Resp B/P (MAP) 106/64 (78) Pulse Ox 97 97 97 94 O2 Delivery Room Air Room Air 04/26/17 04/26/17 04/26/17 04/26/17 00:00 00:32 04:25 04:51 Temp 100.5 99.3 Pulse 118 105 Resp 18 B/P (MAP) 102/63 (76) Pulse Ox 97 93 O2 Delivery Room Air Room Air 04/26/17 04/26/17 04/26/17 04/26/17 07:27 08:00 09:00 12:00 Temp 99.5 99.9 Pulse 123 99 Resp 20 24 B/P (MAP) 105/68 (80) 97/59 (72) Pulse Ox 90 91 91 94 O2 Delivery Room Air Room Air Room Air Room Air 04/26/17 04/26/17 04/26/17 04/26/17 16:40 20:00 20:02 21:00 Temp 99.2 100.1 Pulse 101 104 Resp 22 22 B/P (MAP) 108/65 (79) 94/59 (71) Pulse Ox 93 88 96 O2 Delivery Room Air Room Air Room Air Nasal Cannula O2 Flow Rate 2.00 04/27/17 04/27/17 04/27/17 00:35 04:20 08:02 Temp 99.2 98.9 Pulse 93 95 Resp 16 16 B/P (MAP) 98/67 (77) 113/71 (85) Pulse Ox 94 95 92 O2 Delivery Nasal Cannula Nasal Cannula Nasal Cannula O2 Flow Rate 2.00 2.00 3.00 Capillary Refill : Less Than 3 Seconds General Appearance: no apparent distress Eyes: Bilateral Eye Normal Inspection HEENT: pharynx normal Neck: full range of motion Respiratory: lungs clear, normal breath sounds Cardiovascular: regular rate, rhythm Gastrointestinal: soft Rectal: deferred Back: normal inspection Extremities: normal range of motion Neurologic/Psychiatric: normal mood/affect, oriented x 3 Skin: jaundice (Noted) Clinical Quality Measures DVT/VTE Risk/Contraindication: Risk Factor Score Per Nursin RFS Level Per Nursing on Admit: 4+=Very High Assessment/Plan Assessment/Plan Admission Dx 1. Dehydration secondary to nausea and vomiting 2. Urinary tract infection 3. Jaundice with noted elevated total bilirubin Plan 1. Dehydration secondary to nausea and vomiting -Patient to be admitted for further IV fluid rehydration 2. Urinary tract infection -Patient had received Rocephin in the emergency department prior to planning on admission. She had received urine culture but no blood culture prior to antibiotics. 3. Jaundice with noted elevated total bilirubin -Will plan on following laboratory including the total bilirubin and liver enzymes HITESH ROUSE MD Apr 26, 2017 07:04
[2017-04-26] MEDS: RT-ALBUTEROL SULF 2.5 MG/3 ML PRE-MIX VIAL INH SCH ×2 (07:25→20:01)
[2017-04-26] MEDS ORDERED: INFLUENZA TRIvalent 2017-2018 0.5 ML/45 MCG SYR IM ONE (07:45)
[2017-04-26 08:00] VITALS: BP 105/68
--- NOTE | 2017-04-26 11:19 | Diagnostic Imaging Report ---
PROCEDURE: US Gallbladder. TECHNIQUE: Multiple real-time grayscale images were obtained over the right upper quadrant in various projections. INDICATION: Abdominal pain. FINDINGS: The liver is mildly enlarged measuring 18 cm. There are no focal liver lesions. Bile ducts are not dilated. Common duct measures 7 mm. The gallbladder shows multiple calcified gallstones. Gallbladder is contracted. No pericholecystic edema demonstrated. The pancreas is obscured. The right kidney shows a 1 cm cyst off the upper pole. There is also a peripelvic cyst measuring 2.5 cm. Right kidney measures 10 x 3.5 x 4.8 cm. There is no ascites. IMPRESSION: 1. Mild hepatomegaly. 2. Cyst noted in right kidney. 3. Multiple small calcified stones within a contracted gallbladder. Dictated by: Dictated on workstation # [id number]
[2017-04-26 12:00] VITALS: BP 97/59
--- NOTE | 2017-04-26 12:59 | CONSULTATION REPORT ---
DATE OF SERVICE: 04/26/2017 ADMITTING PHYSICIAN: Dr. Jama Rogers. HISTORY OF PRESENT ILLNESS: The patient is a 56-year-old female who presented to the Emergency Department with one to two day history of nausea and vomiting as well as just not feeling well. She also reports burning upon urination and was found to have a urinary tract infection. The patient is currently being worked up for other disorders including leukemia as well as a plastic bone marrow. She has noticeable jaundice of her skin and has had elevated bilirubin for which she states for the past two years. 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 An ultrasound was performed which did show a contracted gallbladder with a gallstone; however, no ductal dilatation. She also reports a known history of hepatomegaly as well as splenomegaly, which may indicate again more of a hematologic disorder versus choledocholithiasis causing hyperbilirubinemia. She states that she did undergo a colonoscopy two weeks ago and believes that to be normal. Since being admitted and placed on IV fluids as well as IV antibiotics, she has felt significantly better with no nausea, no vomiting. She does not report any pain in the right upper abdominal quadrant as well as no radiation towards the back. PAST MEDICAL HISTORY: Gilbert disease. PAST SURGICAL HISTORY: Tubal ligation. ALLERGIES: PENICILLIN. MEDICATIONS: None. SOCIAL HISTORY: Positive smoke 80 pack years. Negative alcohol. FAMILY HISTORY: Brother, myocardial infarction at age 39. Brother leukemia. VITAL SIGNS: Temperature 99.5, blood pressure 105/68, pulse 122, respirations 20, pulse ox 91% on room air. REVIEW OF SYSTEMS: Well-nourished female currently in no acute distress. She is not experiencing any shortness of breath or difficulty breathing. No chest pain, palpitations, diaphoresis. No nausea, vomiting. No hematemesis, no coffee ground emesis. No diarrhea, constipation, no red blood per rectum, no dark tarry stools. No fever or chills. Approximately a 10 to 15 pound weight loss in the past year. All other review of systems negative. PHYSICAL EXAMINATION: CHEST: Scattered rales and rhonchi with distant breath sounds bilaterally. HEART: Regular, no murmurs. EXTREMITIES: No lower extremity edema. Negative Homans sign. HEENT: No scleral icterus. NECK: No cervical lymphadenopathy. ABDOMEN: Soft, nontender, nondistended. SKIN: Noticeable jaundice throughout. LABORATORY DATA: WBC 5.6, hemoglobin 9.1, hematocrit 26, platelets 152, red cell distribution with 20.5, BUN 20, creatinine 0.78, total bilirubin 7.1. All other liver function enzymes normal. ASSESSMENT AND PLAN: A 56-year-old female with jaundice. She was found to have a gallstone on ultrasound; however, she states that she has known this before in the past. At this time, this does not appear to be the cause of her symptoms or her hyperbilirubinemia. She does not have any pain and is not symptomatic from gallstone standpoint and does not show any ductal dilatation that would indicate a choledocholithiasis. We will repeat bilirubin including total as well as direct and indirect bilirubin. We will start a clear liquid diet as well. We will await further evaluation with oncology who are currently working her up for other blood dyscrasias. Job ID: [id number] DocumentID: [id number] Dictated Date: 04/26/2017 12:33:22 Formal Service Waiter Date: 04/26/2017 12:57:58 Dictated By: YESENIA PETE MD MTDD
[2017-04-26 16:40] VITALS: BP 108/65
[2017-04-26] MEDS: cefTRIAXone INJECTION 1,000 MG in D5W 50 ML IVPB SOLUTION 50 ML IV SCH (20:02)
[2017-04-26 21:00] VITALS: BP 94/59
[2017-04-27 00:35] VITALS: BP 98/67
[2017-04-27] MEDS: NS IV 1000 ML 1,000 ML IV SCH ×2 (01:16→10:21)
[2017-04-27 04:20] VITALS: BP 113/71
[2017-04-27 07:51] LABS: BILIRUBIN,DIRECT 0.6 MG/DL (0.0-0.3); BILIRUBIN,INDIRECT 3.9 MG/DL; BILIRUBIN,TOTAL 4.5 MG/DL (0.1-1.0)
[2017-04-27 08:00] VITALS: BP 104/55
[2017-04-27] MEDS: RT-ALBUTEROL SULF 2.5 MG/3 ML PRE-MIX VIAL INH SCH (08:02)
--- NOTE | 2017-04-27 09:39 | Progress Note (SOAP) ---
Subjective Date Seen by Provider: Apr 27, 2017 Time Seen by Provider: 09:30 Subjective/Events-last exam doing well. feels much better. no abdominal pain, no nasea/vomiting. bilirubin normalizing. tolerating clears. Objective Exam Vital Signs Date Time Temp Pulse Resp B/P (MAP) Pulse Ox O2 Delivery O2 Flow Rate FiO2 04/27/17 08:02 92 Nasal Cannula 3.00 04/27/17 04:20 98.9 95 16 113/71 (85) 95 Nasal Cannula 2.00 04/27/17 00:35 99.2 93 16 98/67 (77) 94 Nasal Cannula 2.00 04/26/17 21:00 100.1 104 22 94/59 (71) 96 Nasal Cannula 2.00 04/26/17 20:02 88 Room Air 04/26/17 20:00 Room Air 04/26/17 16:40 99.2 101 22 108/65 (79) 93 Room Air 04/26/17 12:00 99.9 99 24 97/59 (72) 94 Room Air I & O 04/27/17 07:00 Intake Total 4320 ml Balance 4320 ml Capillary Refill : Less Than 3 Seconds General Appearance: No Apparent Distress HEENT: PERRL/EOMI Neck: Full Range of Motion Respiratory: Rhonci, Wheezing Cardiovascular: Regular Rate, Rhythm Gastrointestinal: normal bowel sounds, non tender, soft Extremity: Normal Capillary Refill Neurologic/Psychiatric: Alert, Oriented x3 Skin: Normal Color Lymphatic: No Adenopathy Results Lab Laboratory Tests 04/27/17 07:14: Total Bilirubin 4.5H, Direct Bilirubin 0.6H, Indirect Bilirubin 3.9 Microbiology 04/25/17 Blood Culture - Preliminary, Resulted No growth 04/25/17 Urine Culture - Final, Complete Strep, Beta Hemolytic Group C Probable Gardnerella Vaginalis Assessment/Plan Assessment/Plan Assess & Plan/Chief Complaint gilbert's syndrome, UTI, hyperbilirubinemia, chronic asymptomatic cholelithiasis. advance diet. continue abx for UTI. monitor labs. Clinical Quality Measures DVT/VTE Risk/Contraindication: Risk Factor Score Per Nursin RFS Level Per Nursing on Admit: 4+=Very High YESENIA PETE MD Apr 27, 2017 9:39 am
[2017-04-27 12:00] VITALS: BP 117/65
[2017-04-27] MEDS ORDERED: NITR-65 PO (14:08)
[2017-04-27] MEDS ORDERED: INFLUENZA TRIvalent 2017-2018 0.5 ML/45 MCG SYR IM ONE (14:26)
[2017-04-27] MEDS: cefTRIAXone INJECTION 1,000 MG in D5W 50 ML IVPB SOLUTION 50 ML IV SCH (14:29)
--- NOTE | 2017-04-27 14:36 | Discharge Summary ---
Diagnosis/Chief Complaint Date of Admission Apr 25, 2017 at 22:20 Date of Discharge April 27, 2017 Admission Diagnosis Admission Diagnosis 1. Urinary tract infection 2. Dehydration 3. Elevated total bilirubin Discharge Diagnosis 1. Urinary tract infection 2. Dehydration 3. Elevated total bilirubin 4. Gallstones--asymptomatic Chief Complaint/HPI Chief Complaint/HPI 56-year-old female admitted through via [facility] emergency department during the evening of April 25, 2017 after having nausea and vomiting for the previous 3 days. Patient was brought to the emergency department via EMS. She does report going to [facility] and has been receiving medical care for jaundice and elevated bilirubin which is not yet explained according to patient. She does report she has had uncomfortable feeling when urination over the past several days. There is been no reports of any fever or chilling. Discharge Summary-Simple/Stand Consultations surgical consultation--Dr Mjeia Discharge Physical Examination Allergies: Coded Allergies: Penicillins (Verified Allergy, Unknown, 04/08/17) latex (Verified Allergy, Unknown, RASH, 04/08/17) Vitals & I&Os Vital Sign - Last 12Hours Date Time Temp Pulse Resp B/P (MAP) Pulse Ox O2 Delivery O2 Flow Rate FiO2 04/27/17 12:00 99.5 101 20 117/65 (82) 92 Room Air 04/27/17 08:02 3.00 Intake and Output 04/27/17 00:00 Intake Total 3020 ml Balance 3020 ml General Appearance: No Acute Distress HEENT: EOMI, Mucous Memb Moist/Mccleary Respiratory: Normal Air Movement Cardiovascular: Regular Rate Abdominal: Soft Skin: No Rashes Neuro: Normal Speech Hospital Course Patient was admitted to [facility] during the evening of April 25 for IV fluids after failing to hold down oral fluids in the emergency department. She had received ceftriaxone in the emergency department for a urinary tract infection. Patient clinically was kept nothing by mouth until she had gallbladder ultrasound. Ultrasound was ordered due to continued workup of her elevated total bilirubin. On April 26 she underwent gallbladder ultrasound revealed multiple stones but a small gallbladder non-contracted and there was no dilated ducts. Surgical consultation recommended no surgery with ongoing support and continued workup for the elevated bilirubin. She was at that time started on clear liquid diet. She was also maintained on ceftriaxone daily during the course of her hospital stay. In the morning of April 27 she was advanced to regular diet and tolerated. She was eager for dismissal during the afternoon and was dismissed to home with follow-up within the week at [facility]. Radiology Reviewed NAME: SOPHIE MILLARD [facility] REC#: [id number] PT STATUS: ADM Alicia : 1960 PHYSICIAN: BRIAN DENNY MD ADMIT DATE: 04/25/17 Draft Date of Exam:04/25/17 CHEST 1 VIEW, AP/PA ONLY INDICATION: Cough with leg swelling and abdominal pain. Comparison with previous CT of the chest from 02/12/2017. FINDINGS: Portable chest shows the lungs to be well-aerated. There are no infiltrates. No masses are present. No hilar adenopathy. Aorta is not enlarged. No evidence of pulmonary edema. No pneumothorax or pleural effusions. Thoracic aortic aneurysm again noted as reported on CT along the aortic root. IMPRESSION: Ascending aortic root aneurysm with no acute changes demonstrated. Dictated on workstation # [id number] Dict: 04/26/1722 Trans: 04/26/17 0639 JAME [id number] Interpreted by: MANISHA WOODWARD MD Electronically signed by: Discharge Instructions to patient/family Please see electronic discharge instructions given to patient. Discharge Medications Reviewed and agree with Discharge Medication list on patient's Discharge Instruction sheet Clinical Quality Measures DVT/VTE Risk/Contraindication: Risk Factor Score Per Nursin RFS Level Per Nursing on Admit: 4+=Very High HITESH ROUSE MD Apr 27, 2017 14:36
[2017-04-27 15:20] VITALS: BP 117/65
== END 2017-04-27 13:53 | disposition home or self-care (01) ==
LOC: EDUNIT# 20:02 → ER 20:04 → 4TH 22:20 → UNDOADMOB 22:20 → 4TH 23:25 → UNDODISOB 04-27 15:20
PROVIDERS: ADMIT Family Medicine; ATTEND Family Medicine
DX: E86.0 Dehydration (principal); R11.2 Nausea with vomiting, unspecified; N39.0 Urinary tract infection, site not specified; E80.4 Gilbert syndrome; F17.210 Nicotine dependence, cigarettes, uncomplicated; Z88.0 Allergy status to penicillin; K80.20 Calculus of gallbladder without cholecystitis without obstruction
CPT/HCPCS: 36415; 71045; 76705; 80053; 81000; 82247; 82248; 83605; 85007; 85025; 85027; 86141; 87040; 87088; 94640; 94664; 94760; 96361; 96365; 96375; 99284

== ENCOUNTER 2017-06-20 09:38 | Outpatient (RCR) | payer OTHER ==
[2017-05-16 09:58] LABS: BASOPHILS # (AUTO) 0.1 10^3/uL (0.0-0.1); BASOPHILS % (AUTO) 2 % (0-10); EOSINOPHILS # (AUTO) 0.1 10^3/uL (0.0-0.3); EOSINOPHILS % (AUTO) 1 % (0-10); HEMATOCRIT 41 % (35-52); HEMOGLOBIN 12.8 G/DL (11.5-16.0); LYMPHOCYTES # (AUTO) 0.8 X 10^3 (1.0-4.0); LYMPHOCYTES % (AUTO) 15 % (12-44); MEAN CORPUSCULAR HEMOGLOBIN 28 PG (25-34); MEAN CORPUSCULAR HGB CONC 32 G/DL (32-36); MEAN CORPUSCULAR VOLUME 89 FL (80-99); MEAN PLATELET VOLUME 9.6 FL (7.4-10.4); MONOCYTES # (AUTO) 0.4 X 10^3 (0.0-1.0); MONOCYTES % (AUTO) 7 % (0-12); NEUTROPHILS # (AUTO) 3.8 X 10^3 (1.8-7.8); NEUTROPHILS % (AUTO) 75 % (42-75); PLATELET COUNT 243 10^3/uL (130-400); RED BLOOD COUNT 4.57 10^6/uL (4.35-5.85); RED CELL DISTRIBUTION WIDTH 19.4 % (10.0-14.5); WHITE BLOOD COUNT 5.1 10^3/uL (4.3-11.0)
[2017-05-16 10:15] LABS: ALANINE AMINOTRANSFERASE 9 U/L (0-55); ALKALINE PHOSPHATASE 91 U/L (40-136); BILIRUBIN,TOTAL 2.8 MG/DL (0.1-1.0); BUN/CREATININE RATIO 4; CALCIUM 9.4 MG/DL (8.5-10.1); CARBON DIOXIDE 31 MMOL/L (21-32); CHLORIDE 102 MMOL/L (98-107); CREATININE SERUM 0.75 MG/DL (0.60-1.30); GFR ESTIMATED > 60; GLUCOSE 114 MG/DL (70-105); POTASSIUM 3.7 MMOL/L (3.6-5.0); SODIUM 142 MMOL/L (135-145); TOTAL PROTEIN 7.2 GM/DL (6.4-8.2)
[~2017-06-20 09:38] MED LIST: NITR-65 PO
[2017-06-20 09:55] LABS: BASOPHILS # (AUTO) 0.1 10^3/uL (0.0-0.1); BASOPHILS % (AUTO) 1 % (0-10); EOSINOPHILS # (AUTO) 0.3 10^3/uL (0.0-0.3); EOSINOPHILS % (AUTO) 4 % (0-10); HEMATOCRIT 38 % (35-52); HEMOGLOBIN 12.6 G/DL (11.5-16.0); LYMPHOCYTES % (AUTO) 15 % (12-44); MEAN CORPUSCULAR HEMOGLOBIN 29 PG (25-34); MEAN CORPUSCULAR HGB CONC 33 G/DL (32-36); MEAN CORPUSCULAR VOLUME 87 FL (80-99); MEAN PLATELET VOLUME 10.4 FL (7.4-10.4); MONOCYTES # (AUTO) 0.6 X 10^3 (0.0-1.0); MONOCYTES % (AUTO) 9 % (0-12); NEUTROPHILS # (AUTO) 4.5 X 10^3 (1.8-7.8); NEUTROPHILS % (AUTO) 71 % (42-75); PLATELET COUNT 246 10^3/uL (130-400); RED BLOOD COUNT 4.42 10^6/uL (4.35-5.85); RED CELL DISTRIBUTION WIDTH 20.8 % (10.0-14.5); WHITE BLOOD COUNT 6.4 10^3/uL (4.3-11.0)
[2017-06-20 10:19] LABS: ALANINE AMINOTRANSFERASE 10 U/L (0-55); ALKALINE PHOSPHATASE 75 U/L (40-136); BILIRUBIN,TOTAL 4.1 MG/DL (0.1-1.0); BUN/CREATININE RATIO 6; CALCIUM 8.9 MG/DL (8.5-10.1); CARBON DIOXIDE 29 MMOL/L (21-32); CHLORIDE 102 MMOL/L (98-107); CREATININE SERUM 0.69 MG/DL (0.60-1.30); GFR ESTIMATED > 60; GLUCOSE 121 MG/DL (70-105); POTASSIUM 3.4 MMOL/L (3.6-5.0); SODIUM 140 MMOL/L (135-145); TOTAL PROTEIN 6.6 GM/DL (6.4-8.2)
== END 2017-08-14 | disposition home or self-care (01) ==
LOC: ONC 09:38
PROVIDERS: ATTEND Internal Medicine Hematology & Oncology
DX: D58.9 Hereditary hemolytic anemia, unspecified (principal); J44.9 Chronic obstructive pulmonary disease, unspecified; F17.210 Nicotine dependence, cigarettes, uncomplicated; K64.0 First degree hemorrhoids; Z86.010 Personal history of colon polyps
CPT/HCPCS: 36415; 80053; 83615; 85025; 99213

== ENCOUNTER 2020-03-14 19:59 | Emergency (ER) | payer SELFPAY ==
[~2020-03-14] VITALS: Ht 152.4 cm; Wt 68.0 kg
--- NOTE | 2020-03-14 21:17 | Diagnostic Imaging Report ---
INDICATION: Abnormal blood pressure COMPARISON made to a prior study from 04/25/2017. FINDINGS: Prominence of the right mediastinal heart borders compatible with the patient's previously demonstrated dilation of the ascending aorta. Heart size is normal. Pulmonary vascularity appears appropriate. The diaphragms are flattened suggesting a component of air trapping. There is no focal infiltrate or consolidation evident. There is no effusion or pneumothorax. IMPRESSION: 1. Stable cardiac silhouette and mediastinal contours in this patient with known prior dilation of the ascending aorta. No current edema or failure. There are flattened diaphragms suggesting air trapping. There is no focal pulmonary infiltrate. Dictated by: Dictated on workstation # [id number]
[2020-03-14 21:22] LABS: BASOPHILS % (AUTO) 0 % (0-10); EOSINOPHILS % (AUTO) 0 % (0-10); LYMPHOCYTES # (AUTO) 0.6 10^3/uL (1.0-4.0); LYMPHOCYTES % (AUTO) 7 % (12-44); MEAN CORPUSCULAR HEMOGLOBIN 39 pg (25-34); MEAN CORPUSCULAR HGB CONC 41 g/dL (32-36); MEAN CORPUSCULAR VOLUME 95 fL (80-99); MEAN PLATELET VOLUME 9.7 fL (9.0-12.2); MONOCYTES % (AUTO) 10 % (0-12); NEUTROPHILS # (AUTO) 7.6 10^3/uL (1.8-7.8); NEUTROPHILS % (AUTO) 77 % (42-75); PLATELET COUNT 257 10^3/uL (130-400); WHITE BLOOD COUNT 9.8 10^3/uL (4.3-11.0)
[2020-03-14 21:24] LABS: ALBUMIN 2.8 GM/DL (3.2-4.5); CHLORIDE 82 MMOL/L (98-107); POTASSIUM 3.3 MMOL/L (3.6-5.0)
[2020-03-14 21:25] LABS: INR 1.3 (0.8-1.4); PROTHROMBIN TIME PATIENT 16.9 SEC (12.2-14.7)
[2020-03-14 21:26] LABS: CALCIUM 7.2 MG/DL (8.5-10.1)
[2020-03-14 21:27] LABS: GLUCOSE 112 MG/DL (70-105); SODIUM 117 MMOL/L (135-145); TOTAL PROTEIN 5.2 GM/DL (6.4-8.2)
[2020-03-14 21:28] LABS: CARBON DIOXIDE 25 MMOL/L (21-32)
[2020-03-14 21:29] LABS: BILIRUBIN,TOTAL 4.6 MG/DL (0.1-1.0)
[2020-03-14 21:30] LABS: ALKALINE PHOSPHATASE 124 U/L (40-136)
[2020-03-14] MEDS ORDERED: NS IV 1000 ML 1,000 ML IV SCH ×2 (21:30→21:45)
[2020-03-14 21:31] LABS: CREATININE SERUM 0.67 MG/DL (0.60-1.30); GFR ESTIMATED > 60
[2020-03-14 21:32] LABS: BUN/CREATININE RATIO 16
[2020-03-14 21:33] LABS: MAGNESIUM 1.6 MG/DL (1.6-2.4)
[2020-03-14 21:34] LABS: ALANINE AMINOTRANSFERASE 14 U/L (0-55); CREATINE KINASE 41 U/L (29-168)
[2020-03-14 21:38] LABS: HEMATOCRIT 12 % (35-52)
[2020-03-14 21:39] LABS: BILIRUBIN,URINE NEGATIVE (NEGATIVE); CLARITY,URINE CLEAR; COLOR,URINE YELLOW; GLUCOSE, URINE (UA) NEGATIVE (NEGATIVE); KETONES,URINE NEGATIVE (NEGATIVE); LEUKOCYTE ESTERASE ,URINE 2+ (NEGATIVE); NITRITE,URINE NEGATIVE (NEGATIVE); PH,URINE 6.5 (5-9); PROTEIN,URINE NEGATIVE (NEGATIVE)
[2020-03-14 21:41] LABS: CREATINE KINASE MB 0.8 NG/ML (<6.6)
[2020-03-14 21:54] LABS: AMORPHOUS SEDIMENT,UR FEW AMOR URATES /LPF; BACTERIA,URINE TRACE /HPF; WBC,URINE 25-50 /HPF
[2020-03-14 21:54] LABS: TSH (THYROID ANALYZER) 2.18 UIU/ML (0.35-4.94)
[2020-03-14 22:14] LABS: AMYLASE 15 U/L (25-125)
[2020-03-14 22:15] LABS: AMMONIA 37 UMOL/L (11-32)
[2020-03-14 22:23] LABS: LIPASE 6 U/L (8-78)
[2020-03-14 22:34] LABS: AMPHETAMINE SCREEN, URINE NEGATIVE (NEGATIVE); BARBITURATE SCREEN URINE NEGATIVE (NEGATIVE); BENZODIAZEPINES SCREEN URINE NEGATIVE (NEGATIVE); CANNABINOID SCREEN, URINE NEGATIVE (NEGATIVE); COCAINE SCREEN URINE NEGATIVE (NEGATIVE); METHADONE STAT NEGATIVE (NEGATIVE); METHAMPHETAMINE SCREEN URINE S NEGATIVE (NEGATIVE); OPIATE SCREEN URINE NEGATIVE (NEGATIVE); OXYCODONE STAT NEGATIVE (NEGATIVE); PROPOXYPHENE STAT NEGATIVE (NEGATIVE); TRICYCLIC ANTIDEPRESSANTS SCRE NEGATIVE (NEGATIVE)
[2020-03-14 22:38] LABS: ANISOCYTOSIS MODERATE; EOSINOPHILS % (MANUAL) 1 %; LYMPHOCYTES % (MANUAL) 8 %; MONOCYTES % (MANUAL) 12 %; NEUTROPHILS % (MANUAL) 79 %
[2020-03-14] MEDS ORDERED: NS 100 ML (IVPB) BAG IV ONE (22:45)
[2020-03-14] MEDS ORDERED: HOLD METFORMIN - RECEIVED CONTRAST 20 ML VIAL IV SCH (22:45)
[2020-03-14] MEDS ORDERED: IOHEXOL 350 MG/ML 100 ML (OMNIPAQUE 350) VIAL IV ONE (22:45)
[2020-03-14] MEDS ORDERED: CATHETER FLUSH 10 ML SYR IV PRN (22:45)
[2020-03-14 22:55] LABS: ACETAMINOPHEN < 10 UG/ML (10-30)
[2020-03-14] MEDS ORDERED: cefTRIAXone FOR IV USE 2,000 MG in WATER (STERILE) FOR INJECTION 20 ML IV ONE (23:45)
--- NOTE | 2020-03-15 00:06 | ED General ---
General Chief Complaint: General Problems/Pain Stated Complaint: WEAKNESS Nursing Triage Note: ARRIVES VIA EMS TO ROOM 2, PATIENT COMES FROM [facility] C/O WEAKNESS. STATES SHE HAS BEEN INCREASINGLY WORSE THE LAST 2 DAYS. Nursing Sepsis Screen: No Definite Risk Source of Information: Patient History of Present Illness Date Seen by Provider: Mar 14, 2020 Time Seen by Provider: 21:00 Initial Comments PT ARRIVES BY [facility] FROM HOME PT C/O GENERALIZED WEAKNESS FOR THE LAST COUPLE OF WEEKS, WORSE THE LAST COUPLE OF DAYS C/O FEELING LIGHTHEADED, BUT NO SYNCOPE C/O DIARRHEA A COUPLE OF TIMES THE LAST COUPLE OF DAYS--NO BLACK/BLOODY/TARRY STOOLS NO ABDOMINAL PAIN NO NAUSEA/VOMITING. HAS HAD DECREASED APPETITE THE LAST COUPLE OF DAYS NO FEVER/SWEATS/CHILLS NO CHEST PAIN NO SHORTNESS OF BREATH NO PALPITATIONS STATES SHE IS URINATING FREQUENTLY, BUT A NORMAL AMOUNT, AND NO PAIN ON URINATION. NO HISTORY OF SIMILAR PT STATES SHE HAS HTN, AND IS ON LISINOPRIL AND A COUPLE OF MONTHS AGO, SHE WAS STARTED ON A "FLUID PILL" FOR HER BLOOD PRESSURE. HAS NOT SOUGHT CARE UNTIL TONIGHT FOR THESE SYMPTOMS PCP: [facility] Allergies and Home Medications Allergies Coded Allergies: Penicillins (Verified Allergy, Unknown, 03/14/20) latex (Verified Allergy, Unknown, RASH, 03/14/20) Home Medications Nitrofurantoin Monohyd/M-Cryst 100 Mg Capsule, 1 TAB PO BID Prescribed by: ABY CONNELL on 04/27/17 5328 Patient Home Medication List Home Medication List Reviewed: Yes Review of Systems Review of Systems Constitutional: see HPI; No chills, No diaphoresis; dizziness; No fever; malaise, weakness EENTM: no symptoms reported; No nose congestion, No throat pain Respiratory: no symptoms reported; No cough, No dyspnea on exertion, No orthopnea, No short of breath, No wheezing Cardiovascular: no symptoms reported; No chest pain, No edema, No palpitations, No syncope, No vascular heart diseas Gastrointestinal: see HPI; No abdominal pain, No constipation; diarrhea; No hematemesis; loss of appetite; No melena, No nausea, No vomiting; other (PT UNAWARE THAT SHE IS JAUNDICED. STATES SHE "HAD ABNORMAL BILIRUBIN TEST" BUT CANNOT STATE HOW LONG SHE HAS HAD THAT, AND DENIES EVER SEEING A SPECIALIST OF ANY KIND FOR IT, OR HAVING ANY TESTS DONE FOR IT. ) Genitourinary: No dysuria; frequency; No hematuria Musculoskeletal: no symptoms reported, other (PT STATES SHE DID FALL ON THANSGIVING 03/02/20 AND HAS A BRUISE TO LEFT HIP--STATES IT DOES NOT HURT AND DID NOT SEEK CARE FOR IT. ) Skin: other (PT IS PALE AND JAUNDICED, BUT PT IS UNAWARE OF THIS) Psychiatric/Neurological: No Symptoms Reported; Denies Headache, Denies Numbness, Denies Paresthesia, Denies Seizure, Denies Tingling, Denies Tremors Hematologic/Lymphatic: Denies Blood Clots, Denies Easy Bleeding, Denies Easy Bruising, Denies Other Immunological/Allergic: no symptoms reported Past [id number]-[id number]-Dugndi Hx Past Med/Social Hx: Reviewed and Corrections made Patient Social History Alcohol Use: Denies Use Recreational Drug Use: No Smoking Status: Current Everyday Smoker (UP TO 3 PPD) Type Used: Cigarettes 2nd Hand Smoke Exposure: Yes Recent Foreign Travel: No Contact w/Someone Who Travel: No Recent Infectious Disease Expo: No Recent Hopitalizations: No Physical Abuse: No Sexual Abuse: No Mistreated: No Fear: No Immunizations Up To Date Date of Influenza Vaccine: Apr 27, 2017 Seasonal Allergies Seasonal Allergies: No Past Medical History Surgeries: Yes Tubal Ligation Respiratory: Yes COPD Currently Using CPAP: No Currently Using BIPAP: No Cardiac: Yes Hypertension Neurological: No [employer]ER History: Tubal Ligation, 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 HAS NOT SEEN ANY SPECIALISTS) Musculoskeletal: No Endocrine: No HEENT: No Cancer: No Psychosocial: No Integumentary: Yes Eczema Blood Disorders: Yes (anemia) Family Medical History Alcoholism 19 FATHER Arthritis 19 MOTHER G8 BROTHER Diabetes mellitus 19 MOTHER G8 BROTHER G8 SISTER No Pertinent Family Hx Physical Exam Vital Signs Vital Signs - First Documented 03/14/20 03/15/20 03/15/20 20:00 00:35 03:15 Temp 36.2 Pulse 106 Resp 20 B/P (MAP) 81/60 (67) Pulse Ox 100 O2 Delivery Room Air O2 Flow Rate 2.00 Capillary Refill : Less Than 3 Seconds Height, Weight, BMI Height: 5'0.00" Weight: 140lbs. 0.0oz. 63.772500pb; 29.00 BMI Method:Stated General Appearance: No Apparent Distress, WD/WN, Other (PT IS VERY PALE AND OBV IOUSLY JAUNDICED. PT HAS SOME MILD TO MODERATE GENERALIZED WEAKNESS. ) HEENT: PERRL/EOMI, Pale Conjunctivae (L), Pale Conjunctivae (R), Scleral Icterus (L), Scleral Icterus (R) Neck: Full Range of Motion, Normal Inspection, Non Tender, Supple Respiratory: Normal Breath Sounds, No Accessory Muscle Use, No Respiratory Distress Cardiovascular: No JVD, No Murmur, Normal Peripheral Pulses, Tachycardia Gastrointestinal: Normal Bowel Sounds, No Pulsatile Mass, Non Tender, Soft, Other (VERY ROTUND, BUT NOT FIRM, AND NON-TENDER. NO OBVIOUS ASCITES. ) Rectal: No Decreased Tone; Hemorrhoids (MULTIPLE EXTERNAL HEMORRHOIDS, BUT NONE ARE INFLAMED OR TENDER. NO SIGNIFICANT STOOL IN RECTAL VAULT, BUT SMALL AMOUNT OBTAINED TO DO HEMOCCULT. NORMAL APPEARING SOFT BROWN STOOL. ); No Mass, No Tenderness Genital/Rectal: Heme Negative Stool Back: Normal Inspection, No CVA Tenderness, No Vertebral Tenderness Extremity: Non Tender, No Calf Tenderness, Pedal Edema (TRACE BILATERALLY) Neurologic/Psychiatric: Alert, Oriented x3, No Motor/Sensory Deficits, mft II- XII Norm as Tested Skin: Warm/Dry, Jaundice, Pallor, Other (HAS MODERATE SIZED BRUISE TO LEFT HIP, BUT NO PETECHIAE, NO PURPURA OR EXCESSIVE BRUISING ANYWHERE ELSE. ) Focused Exam Lactate Level 03/14/20 21:50: Lactic Acid Level 1.00 Lactic Acid Level Progress/Results/Core Measures Suspected Sepsis Recent Fever Within 48 Hours: No Infection Criteria Present: None New/Unexplained Altered Menta: No Sepsis Screen: No Definite Risk SIRS Temperature: Pulse: 106 Respiratory Rate: 20 Laboratory Tests 03/14/20 20:10: White Blood Count 9.8 Blood Pressure 81 /60 Mean: 67 03/14/20 21:50: Lactic Acid Level 1.00 Laboratory Tests 03/14/20 20:10: Creatinine 0.67, INR Comment 1.3, Platelet Count 257, Total Bilirubin 4.6H Results/Orders Lab Results Laboratory Tests Test 03/14/20 20:10 03/14/20 20:56 03/14/20 21:14 03/14/20 21:50 Range/Units White Blood Count 9.8 4.3-11.0 10^3/uL Red Blood Count 1.29 L 3.80-5.11 10^6/uL Hemoglobin 5.0 *L 11.5-16.0 g/dL Hematocrit 12 *L 35-52 % Mean Corpuscular Volume 95 80-99 fL Mean Corpuscular Hemoglobin 39 H 25-34 pg Mean Corpuscular Hemoglobin Concent 41 H 32-36 g/dL Red Cell Distribution Width 24.6 H 10.0-14.5 % Platelet Count 257 130-400 10^3/uL Mean Platelet Volume 9.7 9.0-12.2 fL Immature Granulocyte % (Auto) 6 % Neutrophils (%) (Auto) 77 H 42-75 % Lymphocytes (%) (Auto) 7 L 12-44 % Monocytes (%) (Auto) 10 0-12 % Eosinophils (%) (Auto) 0 0-10 % Basophils (%) (Auto) 0 0-10 % Neutrophils # (Auto) 7.6 1.8-7.8 10^3/uL Lymphocytes # (Auto) 0.6 L 1.0-4.0 10^3/uL Monocytes # (Auto) 1.0 0.0-1.0 10^3/uL Eosinophils # (Auto) 0.0 0.0-0.3 10^3/uL Basophils # (Auto) 0.0 0.0-0.1 10^3/uL Immature Granulocyte # (Auto) 0.6 H 0.0-0.1 10^3/uL Neutrophils % (Manual) 79 % Lymphocytes % (Manual) 8 % Monocytes % (Manual) 12 % Eosinophils % (Manual) 1 % Anisocytosis MODERATE Prothrombin Time 16.9 H 12.2-14.7 SEC INR Comment 1.3 0.8-1.4 Activated Partial Thromboplast Time 33 24-35 SEC Sodium Level 117 *L 135-145 MMOL/L Potassium Level 3.3 L 3.6-5.0 MMOL/L Chloride Level 82 L 98-107 MMOL/L Carbon Dioxide Level 25 21-32 MMOL/L Anion Gap 10 5-14 MMOL/L Blood Urea Nitrogen 11 7-18 MG/DL Creatinine 0.67 0.60-1.30 MG/DL Estimat Glomerular Filtration Rate > 60 BUN/Creatinine Ratio 16 Glucose Level 112 H 70-105 MG/DL Calcium Level 7.2 L 8.5-10.1 MG/DL Corrected Calcium 8.2 L 8.5-10.1 MG/DL Magnesium Level 1.6 1.6-2.4 MG/DL Total Bilirubin 4.6 H 0.1-1.0 MG/DL Aspartate Amino Transf (AST/SGOT) 15 5-34 U/L Alanine Aminotransferase (ALT/SGPT) 14 0-55 U/L Alkaline Phosphatase 124 40-136 U/L Total Creatine Kinase 41 29-168 U/L Creatine Kinase MB 0.8 <6.6 NG/ML Myoglobin 83.4 10.0-92.0 NG/ML Troponin I < 0.028 <0.028 NG/ML B-Type Natriuretic Peptide 43.8 <100.0 PG/ML Total Protein 5.2 L 6.4-8.2 GM/DL Albumin 2.8 L 3.2-4.5 GM/DL TSH [employer] [place] Testing 2.18 0.35-4.94 UIU/ML Urine Color YELLOW Urine Clarity CLEAR Urine pH 6.5 5-9 Urine Specific [place] <=1.005 1.016-1.022 Urine Protein NEGATIVE NEGATIVE Urine Glucose (UA) NEGATIVE NEGATIVE Urine Ketones NEGATIVE NEGATIVE Urine Nitrite NEGATIVE NEGATIVE Urine Bilirubin NEGATIVE NEGATIVE Urine Urobilinogen 0.2 < = 1.0 MG/DL Urine Leukocyte Esterase 2+ H NEGATIVE Urine RBC (Auto) NEGATIVE NEGATIVE Urine RBC NONE /HPF Urine WBC 25-50 H /HPF Urine Crystals PRESENT H /LPF Urine Amorphous Sediment FEW RADHIKA URATES H /LPF Urine Bacteria TRACE /HPF Urine Casts NONE /LPF Urine Mucus NEGATIVE /LPF Urine Culture Indicated YES Urine Opiates Screen NEGATIVE NEGATIVE Urine Oxycodone Screen NEGATIVE NEGATIVE Urine Methadone Screen NEGATIVE NEGATIVE Urine Propoxyphene Screen NEGATIVE NEGATIVE Urine Barbiturates Screen NEGATIVE NEGATIVE Ur Tricyclic Antidepressants Screen NEGATIVE NEGATIVE Urine Phencyclidine Screen NEGATIVE NEGATIVE Urine Amphetamines Screen NEGATIVE NEGATIVE Urine Methamphetamines Screen NEGATIVE NEGATIVE Urine Benzodiazepines Screen NEGATIVE NEGATIVE Urine Cocaine Screen NEGATIVE NEGATIVE Urine Cannabinoids Screen NEGATIVE NEGATIVE Glucometer 131 H 70-110 MG/DL Lactic Acid Level 1.00 0.50-2.00 MMOL/L Ammonia 37 H 11-32 UMOL/L Amylase Level 15 L 25-125 U/L Lipase 6 L 8-78 U/L Acetaminophen Level < 10 L 10-30 UG/ML Serum Alcohol < 10 <10 MG/DL Test 12/8/20 23:40 Range/Units Coronavirus 2019 (MARGRET) Negative Negative My Orders Orders - LUCIANO CRAWLEY DO Accucheck Stat ONCE (03/14/20 21:00) Ed Iv/Invasive Line Start (03/14/20 21:00) Ekg Tracing (03/14/20 21:00) Monitor-Rhythm Ecg Trace Only (03/14/20 21:00) Straight Cath For Spec.-Adult (03/14/20 21:00) Chest 1 View, Ap/Pa Only (03/14/20 21:00) BNP (03/14/20:00) Cbc With Automated Diff (03/14/20:00) Comprehensive Metabolic Panel (03/14/20:00) Creatine Kinase (03/14/20:00) Creatine Kinase Mb (03/14/20 21:00) Magnesium (03/14/20:00) Protime With Inr (03/14/20:00) Partial Thromboplastin Time (03/14/20 21:00) Thyroid Analyzer (03/14/20 21:00) Ua Culture If Indicated (03/14/20 21:00) Myoglobin Serum (03/14/20 21:00) Troponin I (03/14/20 21:00) Ed Iv/Invasive Line Start (03/14/20 21:27) Ns Iv 1000 Ml (Sodium Chloride 0.9%) (03/14/20 21:30) Ed Iv/Invasive Line Start (03/14/20 21:37) Ns Iv 1000 Ml (Sodium Chloride 0.9%) (03/14/20 21:45) Manual Differential (03/14/20 20:10) Acetaminophen (03/14/20 21:38) Alcohol (03/14/20 21:38) Ammonia (03/14/20 21:38) Amylase (03/14/20 21:38) Drug Screen Stat (Urine) (03/14/20 21:38) Hepatitis Panel Acute (03/14/20 21:38) Hiv 1&2 Antibody (03/14/20 21:38) Lipase (03/14/20 21:38) Red Cells Leukocytes Reduced (03/14/20 21:38) Type And Screen (03/14/20 21:38) Ct Chest/Abdomen/Pelvis W (03/14/20 21:44) Lactic Acid Analyzer (03/14/20 21:53) Urine Culture (03/14/20 20:56) Iohexol Injection (Omnipaque 350 Mg/Ml 1 (03/14/20 22:45) Received Contrast (Hold Metformin- Contr (03/14/20 22:45) Sodium Chloride Flush (Catheter Flush Sy (03/14/20 22:45) Ns (Ivpb) (Sodium Chloride 0.9% Ivpb Bag (03/14/20 22:45) Coronavirus Sars-Cov-2 So 2019 (03/14/20 23:30) Covid 19 Inhouse Test (03/14/20 23:30) Ceftriaxone For Iv Use (Rocephin For I (03/14/20 23:45) Catheter(Urinary) Insert & Ass 03,15 (03/15/20 00:19) O2 (03/15/20 00:19) Ns Iv 500 Ml (Sodium Chloride 0.9%) (03/15/20 00:29) Lidocaine 2% (Urojet) (Xylocaine Urojet) (03/15/20 01:00) Lidocaine 2% (Urojet) (Xylocaine Urojet) (03/15/20 00:56) Metronidazole 500mg/100ml Ivpb (Flagyl 5 (03/15/20 01:45) Medications Given in ED Current Medications Medications Dose Ordered Sig/Diana Route Start Time Stop Time Status Last Admin Dose Admin Ceftriaxone Sodium 2000 mg/ Sterile Water 20 ml @ 240 mls/hr ONCE ONCE IV 03/14/20 23:45 03/14/20 23:50 DC 03/15/20 00:02 240 MLS/HR Iohexol 100 ml ONCE ONCE IV 03/14/20 22:45 03/14/20 22:46 DC 03/14/20 22:41 100 ML Lidocaine HCl 10 ml ONCE ONCE TOP 03/15/20 01:00 03/15/20 01:01 DC 03/15/20 01:00 10 ML Metronidazole 100 ml @ 100 mls/hr ONCE ONCE IV 03/15/20 01:45 03/15/20 02:45 DC 03/15/20 03:05 100 MLS/HR Sodium Chloride 10 ml NEEDED PRN IV 03/14/20 22:45 03/15/20 04:52 DC 03/14/20 22:41 10 ML Sodium Chloride 100 ml ONCE ONCE IV 03/14/20 22:45 03/14/20 22:46 DC 03/14/20 22:41 80 ML Sodium Chloride 500 ml @ STK-MED ONCE .ROUTE 03/15/20 00:29 03/15/20 00:32 DC 03/15/20 00:30 500 MLS/HR Vital Signs/I&O 03/14/20 03/15/20 03/15/20 03/15/20 20:00 00:35 00:50 00:55 Temp 36.2 35.8 35.7 35.7 Pulse 106 101 101 101 Resp 20 18 18 18 B/P (MAP) 81/60 (67) 72/53 69/46 87/57 Pulse Ox 100 100 100 100 O2 Delivery Room Air Room Air Room Air 03/15/20 03/15/20 03/15/20 01:25 02:41 03:15 Temp 36.0 37.0 37.0 Pulse 101 105 105 Resp 18 24 24 B/P (MAP) 97/68 110/73 105/69 Pulse Ox 100 100 100 O2 Delivery Room Air Nasal Cannula O2 Flow Rate 2.00 03/15/20 00:00 Intake Total 3000 ml Balance 3000 ml Capillary Refill : Less Than 3 Seconds Blood Pressure Mean: 67 Point of Care Testing Finger Stick Blood Glucose: 131 Progress Note : Progress Note PT GIVEN IV FLUIDS AND 2 UNITS OF BLOOD. GIVEN ROCEPHIN AND FLAGYL FOR UTI AND CHOLECYSTITIS AND LIVER ABSCESS. BP UP TO > 90 SYSTOLIC WITH FLUIDS AND BLOOD NO DETERIORATION IN PT'S CONDITION DURING ER STAY ECG Initial ECG Impression Date: Mar 14, 2020 Initial ECG Impression Time: 21:03 Initial ECG Rate: 114 Initial ECG Rhythm: S.Tach Diagnostic Imaging Comments CXR---PER RADIOLOGIST REPORT AT 0560 IMPRESSION: 1. Stable cardiac silhouette and mediastinal contours in this patient with known prior dilation of the ascending aorta. No current edema or failure. There are flattened diaphragms suggesting air trapping. There is no focal pulmonary infiltrate. CT CHEST/ABDOMEN/PELVIS--PER [facility] VIA FAX AT 8435 HEPATOSPLENOMEGALY-UNCHANGED. MULTIPLE LARGE GALLSTONES, WITH GALLBLADDER WALL THICKENING. IRREGULAR LOW-ATTENUATION LESION ANTERIOR TO GALLBLADDER THAT IT LIKELY COMMUNICATES WITH--FINDINGS COMPATIBLE WITH CHOLECYSTITIS AND ADJACENT ABSCESS IN THE LIVER. DEVELOPING MASS NOT EXCLUDED. MILD RETROPERITONEAL LYMPHADENOPATHY. SCATTERED COLONIC DIVERTICULI WITHOUT ACUTE DIVERTICULITIS. NO CHANGE IN PROMINENT RESIDUAL OVARIAN TISSUE OR RIGHT ADNEXAL MASS. NO CHANGE IN REMAINING SOLID ORGANS. Reviewed: Reviewed by Me Departure Communication (Admissions) 3208--SPOKE WITH DR. MUÑOZ, GENERAL SURGEON, ADVISES TRANSFER TO , DUE TO NEED FOR POSSIBLE ERCP, INTERVENTIONAL RADIOLOGY, LIVER SPECIALIST 5003--CALLED [facility]. INFORMATION GIVEN, THEY WILL CALL ME BACK 0152--[facility] CALLED BACK. PT HAS BEEN ACCEPTED BY DR. GUADARRAMA. NO ADDITIONAL RECOMMENDATIONS AT THIS TIME 0255--[facility] HERE FOR TRANSPORT Impression Primary Impression: Cholecystitis Additional Impressions: Cholelithiasis SUSPECTED HEPATIC ABSCESS Severe anemia SEVERE HYPONATREMIA Hypotension Urinary tract infection Disposition: XFER SHT-TRM HOSP Condition: Improved Transfer Transfer Reason: Exceeds level of care Transfer Facility: Method of Transfer: EMS Departure-Patient Inst. Referrals: COREY MORALEZ DO (PCP) Primary Care Physician JHON HERNANDEZ (Family) Primary Care Physician LUCIANO CRAWLEY DO Mar 15, 2020 00:06
[2020-03-15] MEDS ORDERED: NS IV 500 ML 500 ML ONE (00:29)
[2020-03-15 00:35] VITALS: BP 72/53
[2020-03-15 00:50] VITALS: BP 69/46
[2020-03-15 00:55] VITALS: BP 87/57
[2020-03-15] MEDS ORDERED: LIDOCAINE UROJET 2% GEL 10 ML PKG ONE (00:56)
[2020-03-15] MEDS ORDERED: LIDOCAINE UROJET 2% GEL 10 ML PKG TOP ONE (01:00)
[2020-03-15 01:25] VITALS: BP 97/68
[2020-03-15] MEDS ORDERED: metroNIDAZOLE 500MG/100ML IVPB 100 ML IV ONE (01:45)
[2020-03-15 02:41] VITALS: BP 110/73
[2020-03-15 03:15] VITALS: BP 105/69
--- NOTE | 2020-03-15 06:24 | Diagnostic Imaging Report ---
PROCEDURE: CT chest, abdomen, and pelvis with contrast. TECHNIQUE: Multiple contiguous axial images were obtained through the chest, abdomen, and pelvis after the administration of intravenous contrast. Auto Exposure Controls were utilized during the CT exam to meet ALARA standards for radiation dose reduction. INDICATION: Weakness and anemia. Elevated bilirubin. Comparison with 02/12/2017 CT scan. FINDINGS: CT CHEST: The lungs are well-aerated and clear. No evidence of pleural effusions or pericardial effusion. No mediastinal or hilar adenopathy of pathologic size. Good opacification of aorta and pulmonary arteries which appear normal. No bony lesions demonstrated. IMPRESSION: Negative CT chest. CT abdomen and pelvis: Cholelithiasis is again noted with thickened gallbladder wall and pericholecystic fluid. There is now a cystic area adjacent to the fundus of the gallbladder extending into the right lobe of the liver which is septated mildly irregular measuring approximately 4.5 cm. Pancreas appears normal. Spleen remains enlarged. The adrenal glands are normal. Kidneys show symmetrical nephrogram effect following IV contrast. There is a cyst off the upper pole right kidney measuring 2 cm. Aorta and abdominal vessels enhance in a normal fashion with moderate atherosclerotic disease. No intra-abdominal adenopathy. Bowel gas pattern appears normal throughout the abdomen and pelvis. There are diverticuli scattered throughout colon without evidence of acute inflammatory change. No pelvic masses. Bladder is not distended. No free air or free fluid. No blastic or lytic bony changes. IMPRESSION: 1. Multiple large gallstones are again noted with thickened gallbladder wall and pericholecystic fluid now present consistent with cholecystitis. There is adjacent complex cystic structure extending into the inferior portion of the right lobe of the liver abutting the gallbladder which may well represent hepatic abscess. 2. Chronic splenomegaly unchanged. 3. Cyst noted upper pole right kidney. These findings are concordant with the preliminary report. Dictated by: Dictated on workstation # [id number]
[2020-03-15 23:05] LABS: HEPATITIS C ANTIBODY C Non-Reactive (Non-Reactive)
== END 2020-03-15 03:15 | disposition short-term general hospital (02) ==
LOC: EDUNIT# 19:59 → ER 20:01
DX: K80.10 Calculus of gallbladder with chronic cholecystitis without obstruction (principal); D64.9 Anemia, unspecified; E87.1 Hypo-osmolality and hyponatremia; I95.9 Hypotension, unspecified; N39.0 Urinary tract infection, site not specified; F17.210 Nicotine dependence, cigarettes, uncomplicated; Z20.828 Contact with and (suspected) exposure to other viral communicable diseases; Z83.3 Family history of diabetes mellitus; Z82.61 Family history of arthritis; Z88.0 Allergy status to penicillin; Z91.040 Latex allergy status
CPT/HCPCS: 51702; 71045; 71260; 74177; 80053; 80074; 80306; 81000; 82140; 82150; 82274; 82550; 82553; 82962; 83605; 83690; 83735; 83874; 83880; 84443; 84484; 85007; 85027; 85610; 85730; 86703; 86850; 86900; 86901; 86922; 87088; 93005; 93041; 99285; G0480 ×2; P9016; U0002; 36415; 80320; 80329; 86920; 87077; 87635

== ENCOUNTER 2020-07-20 09:10 | Outpatient (RCR) | payer MEDICAID, OTHER ==
[2020-04-27 13:37] LABS: ABSOLUTE RETIC # 85 10e9/uL (24-90); BASOPHILS % (AUTO) 1 % (0-10); EOSINOPHILS # (AUTO) 0.1 10^3/uL (0.0-0.3); EOSINOPHILS % (AUTO) 2 % (0-10); HEMATOCRIT 29 % (35-52); HEMOGLOBIN 9.5 g/dL (11.5-16.0); LYMPHOCYTES # (AUTO) 0.4 10^3/uL (1.0-4.0); LYMPHOCYTES % (AUTO) 10 % (12-44); MEAN CORPUSCULAR HEMOGLOBIN 28 pg (25-34); MEAN CORPUSCULAR HGB CONC 33 g/dL (32-36); MEAN CORPUSCULAR VOLUME 83 fL (80-99); MEAN PLATELET VOLUME 10.7 fL (9.0-12.2); MONOCYTES # (AUTO) 0.4 10^3/uL (0.0-1.0); MONOCYTES % (AUTO) 12 % (0-12); NEUTROPHILS # (AUTO) 2.9 10^3/uL (1.8-7.8); NEUTROPHILS % (AUTO) 75 % (42-75); PLATELET COUNT 179 10^3/uL (130-400); RETICULOCYTE % 2.46 % (0.50-2.40); WHITE BLOOD COUNT 3.8 10^3/uL (4.3-11.0)
[2020-04-27 13:59] LABS: ALANINE AMINOTRANSFERASE 6 U/L (0-55); ALBUMIN 3.8 GM/DL (3.2-4.5); ALKALINE PHOSPHATASE 63 U/L (40-136); BILIRUBIN,TOTAL 4.2 MG/DL (0.1-1.0); BUN/CREATININE RATIO 7; CALCIUM 8.5 MG/DL (8.5-10.1); CARBON DIOXIDE 26 MMOL/L (21-32); CHLORIDE 93 MMOL/L (98-107); CREATININE SERUM 0.73 MG/DL (0.60-1.30); GFR ESTIMATED > 60; GLUCOSE 114 MG/DL (70-105); POTASSIUM 2.8 MMOL/L (3.6-5.0); SODIUM 131 MMOL/L (135-145); TOTAL PROTEIN 6.1 GM/DL (6.4-8.2)
[2020-06-09 14:57] LABS: ABSOLUTE RETIC # 67 10e9/uL (24-90); BASOPHILS % (AUTO) 1 % (0-10); EOSINOPHILS # (AUTO) 0.1 10^3/uL (0.0-0.3); EOSINOPHILS % (AUTO) 2 % (0-10); HEMATOCRIT 32 % (35-52); HEMOGLOBIN 10.6 g/dL (11.5-16.0); LYMPHOCYTES # (AUTO) 0.8 10^3/uL (1.0-4.0); LYMPHOCYTES % (AUTO) 17 % (12-44); MEAN CORPUSCULAR HEMOGLOBIN 28 pg (25-34); MEAN CORPUSCULAR HGB CONC 33 g/dL (32-36); MEAN CORPUSCULAR VOLUME 86 fL (80-99); MONOCYTES # (AUTO) 0.4 10^3/uL (0.0-1.0); MONOCYTES % (AUTO) 7 % (0-12); NEUTROPHILS # (AUTO) 3.4 10^3/uL (1.8-7.8); NEUTROPHILS % (AUTO) 71 % (42-75); PLATELET COUNT 183 10^3/uL (130-400); RETICULOCYTE % 1.79 % (0.50-2.40); WHITE BLOOD COUNT 4.8 10^3/uL (4.3-11.0)
[2020-06-09 15:16] LABS: ALANINE AMINOTRANSFERASE 20 U/L (0-55); ALBUMIN 3.3 GM/DL (3.2-4.5); ALKALINE PHOSPHATASE 78 U/L (40-136); BILIRUBIN,TOTAL 2.2 MG/DL (0.1-1.0); BUN/CREATININE RATIO 5; CALCIUM 8.3 MG/DL (8.5-10.1); CARBON DIOXIDE 27 MMOL/L (21-32); CHLORIDE 97 MMOL/L (98-107); CREATININE SERUM 0.64 MG/DL (0.60-1.30); GFR ESTIMATED > 60; GLUCOSE 105 MG/DL (70-105); POTASSIUM 3.1 MMOL/L (3.6-5.0); SODIUM 133 MMOL/L (135-145); TOTAL PROTEIN 5.4 GM/DL (6.4-8.2)
[2020-07-20 09:28] LABS: ABSOLUTE RETIC # 127 10e9/uL (24-90); BASOPHILS # (AUTO) 0.1 10^3/uL (0.0-0.1); BASOPHILS % (AUTO) 1 % (0-10); EOSINOPHILS # (AUTO) 0.1 10^3/uL (0.0-0.3); EOSINOPHILS % (AUTO) 3 % (0-10); HEMATOCRIT 34 % (35-52); HEMOGLOBIN 10.7 g/dL (11.5-16.0); LYMPHOCYTES # (AUTO) 0.8 10^3/uL (1.0-4.0); LYMPHOCYTES % (AUTO) 18 % (12-44); MEAN CORPUSCULAR HEMOGLOBIN 27 pg (25-34); MEAN CORPUSCULAR HGB CONC 32 g/dL (32-36); MEAN CORPUSCULAR VOLUME 87 fL (80-99); MONOCYTES # (AUTO) 0.3 10^3/uL (0.0-1.0); MONOCYTES % (AUTO) 7 % (0-12); NEUTROPHILS # (AUTO) 3.3 10^3/uL (1.8-7.8); NEUTROPHILS % (AUTO) 71 % (42-75); PLATELET COUNT 195 10^3/uL (130-400); RETICULOCYTE % 3.24 % (0.50-2.40); WHITE BLOOD COUNT 4.6 10^3/uL (4.3-11.0)
[2020-07-20 09:49] LABS: ALANINE AMINOTRANSFERASE 11 U/L (0-55); ALBUMIN 3.1 GM/DL (3.2-4.5); ALKALINE PHOSPHATASE 96 U/L (40-136); BILIRUBIN,TOTAL 3.1 MG/DL (0.1-1.0); BUN/CREATININE RATIO 5; CALCIUM 8.1 MG/DL (8.5-10.1); CARBON DIOXIDE 26 MMOL/L (21-32); CHLORIDE 98 MMOL/L (98-107); CREATININE SERUM 0.57 MG/DL (0.60-1.30); GFR ESTIMATED > 60; GLUCOSE 99 MG/DL (70-105); POTASSIUM 3.6 MMOL/L (3.6-5.0); SODIUM 133 MMOL/L (135-145); TOTAL PROTEIN 5.3 GM/DL (6.4-8.2)
== END 2020-07-26 | disposition home or self-care (01) ==
LOC: ONC 09:10
PROVIDERS: ATTEND Internal Medicine Hematology & Oncology
DX: D59.12 Cold autoimmune hemolytic anemia (principal); R16.1 Splenomegaly, not elsewhere classified; E83.119 Hemochromatosis, unspecified; J44.9 Chronic obstructive pulmonary disease, unspecified; E11.9 Type 2 diabetes mellitus without complications; I10 Essential (primary) hypertension; D59.4 Other nonautoimmune hemolytic anemias
CPT/HCPCS: 80053; 83010; 83615; 85025; 85045; 86157; 99213; 99214

== ENCOUNTER → 2020-10-19 | Outpatient (CLI) | payer MEDICAID, OTHER ==
[2020-10-19 09:07] LABS: ABSOLUTE RETIC # 99 10e9/uL (24-90); BASOPHILS % (AUTO) 1 % (0-10); EOSINOPHILS # (AUTO) 0.1 10^3/uL (0.0-0.3); EOSINOPHILS % (AUTO) 2 % (0-10); HEMATOCRIT 31 % (35-52); HEMOGLOBIN 10.2 g/dL (11.5-16.0); LYMPHOCYTES # (AUTO) 0.6 10^3/uL (1.0-4.0); LYMPHOCYTES % (AUTO) 16 % (12-44); MEAN CORPUSCULAR HEMOGLOBIN 28 pg (25-34); MEAN CORPUSCULAR HGB CONC 33 g/dL (32-36); MEAN CORPUSCULAR VOLUME 84 fL (80-99); MEAN PLATELET VOLUME 10.1 fL (9.0-12.2); MONOCYTES # (AUTO) 0.2 10^3/uL (0.0-1.0); MONOCYTES % (AUTO) 6 % (0-12); NEUTROPHILS # (AUTO) 2.9 10^3/uL (1.8-7.8); NEUTROPHILS % (AUTO) 75 % (42-75); PLATELET COUNT 203 10^3/uL (130-400); RETICULOCYTE % 2.71 % (0.50-2.40); WHITE BLOOD COUNT 3.8 10^3/uL (4.3-11.0)
[2020-10-19 09:26] LABS: ALANINE AMINOTRANSFERASE 12 U/L (0-55); ALBUMIN 3.6 GM/DL (3.2-4.5); ALKALINE PHOSPHATASE 83 U/L (40-136); BILIRUBIN,TOTAL 5.6 MG/DL (0.1-1.0); BUN/CREATININE RATIO 5; CALCIUM 8.6 MG/DL (8.5-10.1); CARBON DIOXIDE 30 MMOL/L (21-32); CHLORIDE 93 MMOL/L (98-107); CREATININE SERUM 0.63 MG/DL (0.60-1.30); GFR ESTIMATED > 60; GLUCOSE 95 MG/DL (70-105); POTASSIUM 3.3 MMOL/L (3.6-5.0); SODIUM 132 MMOL/L (135-145); TOTAL PROTEIN 6.2 GM/DL (6.4-8.2)
== END ==
LOC: EDSTATUS 07-27 10:32 → ONC 08:36
PROVIDERS: ATTEND Internal Medicine Hematology & Oncology
DX: D59.12 Cold autoimmune hemolytic anemia (principal); K81.9 Cholecystitis, unspecified; J44.9 Chronic obstructive pulmonary disease, unspecified; E11.9 Type 2 diabetes mellitus without complications; I10 Essential (primary) hypertension; E80.6 Other disorders of bilirubin metabolism; E83.19 Other disorders of iron metabolism; K75.0 Abscess of liver; R16.1 Splenomegaly, not elsewhere classified; Z98.890 Other specified postprocedural states; Z72.0 Tobacco use
CPT/HCPCS: 80053; 83010; 83615; 85025; 85045; 99213

== ENCOUNTER → 2020-10-27 | Outpatient (CLI) | payer MEDICAID ==
--- NOTE | 2020-10-27 10:30 | Diagnostic Imaging Report ---
INDICATION: Digital screening with CAD. COMPARED: 10/2016 FINDINGS: There is heterogeneously dense parenchymal pattern which can limit mammographic sensitivity. A few benign type calcifications are stable. There is no breast mass, spiculated lesion, architectural distortion or suspicious calcifications. IMPRESSION: Stable benign finding. BI-RADS Category 2 ACR BI-RADS Category 2: Benign findings. Result letter will be mailed to the patient. Note: At least 10% of breast cancer is not imaged by mammography. Dictated by: Dictated on workstation # [id number]
== END ==
LOC: RAD 08:45
PROVIDERS: ATTEND Nurse Practitioner Family
DX: Z12.31 Encounter for screening mammogram for malignant neoplasm of breast (principal)
CPT/HCPCS: 77063; 77067

== ENCOUNTER 2020-12-20 15:25 | Inpatient (IN) | payer MEDICAID ==
[~2020-12-20] VITALS: Ht 152 cm; Wt 61.6 kg
[2020-12-20] VITALS (13 sets, daily range): BP systolic 83–139; BP diastolic 53–80
--- NOTE | 2020-12-20 15:40 | ED General ---
General Stated Complaint: LOSS OF APPETITE / WEAK Source of Information: Patient, EMS Exam Limitations: No Limitations (NAVYA BARDALES) History of Present Illness Date Seen by Provider: Dec 20, 2020 Time Seen by Provider: 15:18 Initial Comments Patient to the ER by [facility] with chief complaint of weakness x1 week and abdominal discomfort. She went to her primary care provider at [facility] and was put on ciprofloxacin. She has 1 day left of antibioti cs. She does not feel any better. She does not have dysuria, constipation, nausea, vomiting. She had a low-grade subjective fever earlier yesterday. She has had anhedonia and not getting up her eating or drinking very well for the past week. She does not recall the name of what infection she was being treated for. She denies a history of pancreatitis. She is a difficult historian as she is rather befuddled. She rates her pain is only about a 1 out of 10 in her epigastric region. She is had her gallbladder out couple months ago. She still has her appendix. She had tubes tied many years ago but no C-sections or hysterectomy. The patient states she is at [place] and it is 2000. She reports getting 2 doses of COVID-19 vaccine. She reports chronic diarrhea and distant colonoscopy that was unremarkable. She endorses a history of COPD but only uses daily inhalers. (NAVYA BARDALES) Allergies and Home Medications Allergies Coded Allergies: Penicillins (Verified Allergy, Unknown, 03/14/20) latex (Verified Allergy, Unknown, RASH, 03/14/20) Patient Home Medication List Home Medication List Reviewed: Yes (NAVYA BARDALES) Nitrofurantoin Monohyd/M-Cryst (Macrobid 100 mg Capsule) 100 Mg Capsule, 1 TAB PO BID Prescribed by: ABY CONNELL on 04/27/17 0702 Review of Systems Review of Systems Constitutional: chills, fever, malaise, weakness EENTM: No ear discharge, No ear pain Respiratory: No cough, No short of breath Cardiovascular: No edema, No palpitations Gastrointestinal: abdominal pain; No constipation; diarrhea (Chronic diarrhea) Genitourinary: No dysuria, No frequency, No hematuria Musculoskeletal: No back pain, No joint pain Skin: No pruritus, No rash Psychiatric/Neurological: Denies Headache, Denies Numbness, Denies Paresthesia (NAVYA BARDALES) Past Zbfzhly-Fbxkgx-Yjtbme Hx Patient Social History Tobacco Use?: Yes Smoking Status: Current Everyday Smoker (2 pack/day) Use of E-Cig and/or Vaping dev: No Substance use?: No Alcohol Use?: No (NAVYA BARDALES) Seasonal Allergies Seasonal Allergies: No (NAVYA BARDALES) Past Medical History Surgeries: Yes Tubal Ligation Respiratory: Yes COPD Currently Using CPAP: No Currently Using BIPAP: No Cardiac: Yes Hypertension Neurological: No 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 HAS NOT SEEN ANY SPECIALISTS) Musculoskeletal: No Endocrine: No HEENT: No Cancer: No Psychosocial: No Integumentary: Yes Eczema Blood Disorders: Yes (anemia) (NAVYA BARDALES) Family Medical History Alcoholism 19 FATHER Arthritis 19 MOTHER G8 BROTHER Diabetes mellitus 19 MOTHER G8 BROTHER G8 SISTER No Pertinent Family Hx (NAVYA BARDAELS) Physical Exam-Suspected Sepsis Physical Exam Vital Signs Vital Signs - First Documented 12/20/20 16:21 Temp 37.0 Pulse 109 Resp 18 B/P (MAP) 139/80 (99) Pulse Ox 98 O2 Delivery Room Air (DELROY CRANDALL MD) Vital Signs Capillary Refill : (NAVYA BARDALES) Height, Weight, BMI Height: 5'0.00" Weight: 140lbs. 0.0oz. [id number]; 29.00 BMI Method:Stated General Appearance: Anxious, Chronically ill (Disheveled) Eyes: Bilateral Eye Normal Inspection, Bilateral Eye PERRL, Bilateral Eye EOMI HEENT: PERRL/EOMI, Pharynx Normal; No Moist Mucous Membranes Neck: Full Range of Motion, Normal Inspection, Non Tender Respiratory: Lungs Clear, Normal Breath Sounds, No Accessory Muscle Use, No Respiratory Distress Cardiovascular: Regular Rate, Rhythm, No Edema, Normal Peripheral Pulses Gastrointestinal: Normal Bowel Sounds, No Organomegaly, Non Tender, Soft Back: Normal Inspection, No Vertebral Tenderness Extremity: Normal Capillary Refill, Normal Inspection, No Pedal Edema Neurologic/Psychiatric: Alert, Oriented x3, No Motor/Sensory Deficits, Normal Mood/Affect Skin: normal color, warm/dry (NAVYA BARDALES) Focused Exam Lactate Level 12/20/20 15:57: Lactic Acid Level 0.92 (DELROY CRANDALL MD) Lactic Acid Level Laboratory Tests Test 12/20/20 15:57 Lactic Acid Level 0.92 MMOL/L (0.50-2.00) (DELROY CRANDALL MD) Progress/Results/Core Measures Suspected Sepsis SIRS Temperature: Pulse: Respiratory Rate: Laboratory Tests 12/20/20 15:57: White Blood Count 2.8L Blood Pressure / Mean: 12/20/20 15:57: Lactic Acid Level 0.92 Laboratory Tests 12/20/20 15:57: Creatinine 0.48L, INR Comment 1.2, Platelet Count 203, Total Bilirubin 3.5H (NAVYA BARDALES) Results/Orders Lab Results Laboratory Tests Test 12/20/20 15:30 12/20/20 15:57 12/20/20 16:30 Range/Units Urine Color YELLOW Urine Clarity CLEAR Urine pH 7.0 5-9 Urine Specific [place] 1.010 L 1.016-1.022 Urine Protein NEGATIVE NEGATIVE Urine Glucose (UA) NEGATIVE NEGATIVE Urine Ketones NEGATIVE NEGATIVE Urine Nitrite NEGATIVE NEGATIVE Urine Bilirubin NEGATIVE NEGATIVE Urine Urobilinogen 4.0 < = 1.0 MG/DL Urine Leukocyte Esterase TRACE H NEGATIVE Urine RBC (Auto) TRACE-I NEGATIVE Urine RBC RARE /HPF Urine WBC 2-5 /HPF Urine Squamous Epithelial Cells 2-5 /HPF Urine Crystals NONE /LPF Urine Bacteria NEGATIVE /HPF Urine Casts NONE /LPF Urine Mucus NEGATIVE /LPF Urine Culture Indicated CULTURE PENDING White Blood Count 2.8 L 4.3-11.0 10^3/uL Red Blood Count 2.00 L 3.80-5.11 10^6/uL Hemoglobin 5.5 *L 11.5-16.0 g/dL Hematocrit 15 *L 35-52 % Mean Corpuscular Volume 75 L 80-99 fL Mean Corpuscular Hemoglobin 28 25-34 pg Mean Corpuscular Hemoglobin Concent 37 H 32-36 g/dL Red Cell Distribution Width 18.9 H 10.0-14.5 % Platelet Count 203 130-400 10^3/uL Mean Platelet Volume 9.9 9.0-12.2 fL Immature Granulocyte % (Auto) 1 % Neutrophils (%) (Auto) 79 H 42-75 % Lymphocytes (%) (Auto) 11 L 12-44 % Monocytes (%) (Auto) 8 0-12 % Eosinophils (%) (Auto) 0 0-10 % Basophils (%) (Auto) 0 0-10 % Neutrophils # (Auto) 2.2 1.8-7.8 10^3/uL Lymphocytes # (Auto) 0.3 L 1.0-4.0 10^3/uL Monocytes # (Auto) 0.2 0.0-1.0 10^3/uL Eosinophils # (Auto) 0.0 0.0-0.3 10^3/uL Basophils # (Auto) 0.0 0.0-0.1 10^3/uL Immature Granulocyte # (Auto) 0.0 0.0-0.1 10^3/uL Neutrophils % (Manual) 82 % Lymphocytes % (Manual) 11 % Monocytes % (Manual) 4 % Eosinophils % (Manual) 1 % Basophils % (Manual) 0 % Band Neutrophils 2 % Percent Immature Platelet Fraction 7.3 0.0-7.6 % Polychromasia SLIGHT Anisocytosis MARKED Microcytosis SLIGHT Absolute Reticulocyte Count 23 L 24-90 10e9/uL Percent Reticulocyte Count 1.24 0.50-2.40 % Prothrombin Time 15.8 H 12.2-14.7 SEC INR Comment 1.2 0.8-1.4 Activated Partial Thromboplast Time 31 24-35 SEC Sodium Level 111 *L 135-145 MMOL/L Potassium Level 2.9 L 3.6-5.0 MMOL/L Chloride Level 77 L 98-107 MMOL/L Carbon Dioxide Level 27 21-32 MMOL/L Anion Gap 7 5-14 MMOL/L Blood Urea Nitrogen 4 L 7-18 MG/DL Creatinine 0.48 L 0.60-1.30 MG/DL Estimat Glomerular Filtration Rate 132 BUN/Creatinine Ratio 8 Glucose Level 108 H 70-105 MG/DL Lactic Acid Level 0.92 0.50-2.00 MMOL/L Calcium Level 8.1 L 8.5-10.1 MG/DL Corrected Calcium 8.6 8.5-10.1 MG/DL Total Bilirubin 3.5 H 0.1-1.0 MG/DL Aspartate Amino Transf (AST/SGOT) 14 5-34 U/L Alanine Aminotransferase (ALT/SGPT) 13 0-55 U/L Alkaline Phosphatase 71 40-136 U/L Ammonia 41 H 11-32 UMOL/L Total Protein 5.3 L 6.4-8.2 GM/DL Albumin 3.4 3.2-4.5 GM/DL Magnesium Level 1.9 1.6-2.4 MG/DL Lipase 7 L 8-78 U/L Serum Alcohol < 10 <10 MG/DL (DELROY CRANDALL MD) My Orders Orders - DELROY CRANDALL MD Smear For Path Review (12/20/20 15:57) Ct Head Wo (12/20/20 18:40) Alcohol (12/20/20 18:50) Albuterol Pre-Mix Nebs (Rt) (Proventil (12/20/20 18:59) Svn Small Volume Nebulizer (12/20/20 18:59) (DELROY CRANDALL MD) Medications Given in ED Current Medications Medications Dose Ordered Sig/Diana Route Start Time Stop Time Status Last Admin Dose Admin Cefepime HCl 1000 mg/Sterile Water 10 ml @ 200 mls/hr ONCE ONCE IV 12/20/20 15:45 12/20/20 15:47 DC 12/20/20 17:09 200 MLS/HR Iohexol 100 ml ONCE ONCE IV 12/20/20 17:45 12/20/20 17:46 DC 12/20/20 17:44 100 ML Potassium Chloride 50 ml @ 50 mls/hr ONCE ONCE IV 12/20/20 17:00 12/20/20 17:59 DC 12/20/20 17:19 50 MLS/HR Sodium Chloride 100 ml ONCE ONCE IV 12/20/20 17:45 12/20/20 17:46 DC 12/20/20 17:44 80 ML Sodium Chloride 500 ml @ 0 mls/hr Q0M ONCE IV 12/20/20 15:45 12/20/20 15:46 DC 12/20/20 17:09 500 MLS/HR Vancomycin HCl 1250 mg/Sodium Chloride 250 ml @ 210 mls/hr ONCE ONCE IV 12/20/20 15:45 12/20/20 16:56 DC 12/20/20 17:59 210 MLS/HR (DELROY CRANDALL MD) Vital Signs/I&O 12/20/20 12/20/20 12/20/20 9/15/21 16:21 18:43 19:23 19:30 Temp 37.0 Pulse 109 103 Resp 18 18 20 B/P (MAP) 139/80 (99) 90/67 100/66 Pulse Ox 98 98 97 O2 Delivery Room Air Room Air Room Air (DELROY CRANDALL MD) Vital Signs/I&O Capillary Refill : (NAVYA BARDALES) Progress Note #1: Time: 15:37 Progress Note Tachycardia 110 and subjective history of fever and being treated for some kind of infection outpatient which is not clear. Patient is delirious mildly although she can give some history. Plan to collect a septic work-up and cover her with broad-spectrum cefepime and vancomycin. She has good blood pressure. Progress Note #2: Time: 16:17 Progress Note Added a ammonia level and type and cross and give 2 units of packed red blood cells. (NAVYA BARDALES) Progress Note #1: Time: 19:11 Progress Note Patient had this patient from Dr. Bardales at 1800. CT abdomen and pelvis was reviewed. Report was read. There is splenomegaly. The incidental finding of possible displaced gallstone in the mesentery was discussed with Dr. Padilla. This is determined to be an incidental finding of insignificant consequence in this current clinical presentation. Empiric antibiotics were administered under Dr. Bardales's care but no source of infection has been identified. We will not continue antibiotics on admission. Patient has severe electrolyte disturbances. Replacement has been started in the ER. 2 units of packed red blood cells are pending transfusion. I discussed the case with Dr. Rosales. He does not recall any specifics of this patient's case from the outpatient clinic but is happy to consult. An iron panel, reticulocyte count, and peripheral smear have been ordered. Blood pressures are marginal at this time but stable. She should be receiving blood shortly. I discussed CODE STATUS with the patient, and she wishes to remain a full code at this time. CT of the head has been obtained and read is pending. CT was obtained at the recommendation of Dr. Rosales. While in CT she complained of shortness of breath. She uses inhalers at home and would appreciate an albuterol treatment. This was ordered for her. Progress Note #2: Time: 19:[address] head was negative for acute abnormalities. (DELROY CRANDALL MD) Diagnostic Imaging Diagonstic Imaging: Xray Plain Films/CT/US/NM/MRI: chest Comments NAME: SOPHIE MILLARD [facility] REC#: [id number] PT STATUS: REG ER : 1960 PHYSICIAN: NAVYA BARDALES MD ADMIT DATE: 12/20/20/ER Draft Date of Exam:12/20/20 CHEST 1 VIEW, AP/PA ONLY INDICATION: Sepsis. AP view of the chest is obtained with comparison made to study of 03/14/2020. FINDINGS: Heart size and pulmonary vascularity are within normal limits. There is mild blunting of the costophrenic sulci. No other significant change is seen. IMPRESSION: Blunting of the costophrenic sulci may reflect mild pleural fluid and/or thickening. Otherwise, no acute abnormality is seen. Dictated on workstation # [id number] Dict: 12/20/20 1610 Trans: 12/20/20 1612 [id number] Interpreted by: SARTHAK COATES MD Electronically signed by: Reviewed: Reviewed by Me (NAVYA BARDALES) Diagonstic Imaging: CT Plain Films/CT/US/NM/MRI: abdomen, pelvis Comments CT abdomen pelvis viewed by me and report reviewed. See report below: NAME: SOPHIE MILLARD [facility] REC#: [id number] PT STATUS: REG ER : 1960 PHYSICIAN: NAVYA BARDALES MD ADMIT DATE: 12/20/20/ER Draft Date of Exam:12/20/20 CT ABDOMEN/PELVIS W PROCEDURE: CT abdomen and pelvis with contrast. TECHNIQUE: Multiple contiguous axial images were obtained through the abdomen and pelvis after administration of intravenous contrast. Auto Exposure Controls were utilized during the CT exam to meet ALARA standards for radiation dose reduction. All CT scans use one or more of the following dose optimizing techniques: automated exposure control, MA and/or KvP adjustment based on patient size and exam type or iterative reconstruction. INDICATION: Abdominal pain with jaundice. COMPARISON: 03/14/2020. FINDINGS: The lung bases demonstrate scarring and pleural thickening on the right with calcified pleural plaques seen on the left and right. The heart is normal in size. There is no pericardial effusion. The liver demonstrates no focal lesion. It is borderline large in size measuring 18 cm in length. There is a small calcified granuloma present. The spleen is quite large and mildly heterogeneous, measuring up to 17.9 cm in length. The pancreas appears normal. The adrenal glands are unremarkable. There is a simple appearing cyst of the right kidney. No enhancing mass is seen. There is no hydronephrosis. The appendix is normal. The bowel loops are nondistended without obstruction. There is diverticulosis of the sigmoid colon without diverticulitis. There is a calcification in the mesentery of the right anterior abdomen measuring 1.2 cm in diameter. This has mild surrounding soft tissue density. This appears to be new since the prior exam, question if this may represent a displaced gallstone. There is no free fluid or free air. There is extensive calcific atherosclerosis of the aorta with mild ectasia. No acute osseous abnormality is seen. IMPRESSION: 1. Marked splenomegaly, similar to the prior exam. 2. There appears to be interval cholecystectomy. There is a new calcification in the right anterior mesentery. Question if this could represent a displaced gallstone. 3. Calcified pleural plaques seen at the lung bases. 4. Colonic diverticulosis without diverticulitis. Dictated on workstation # [id number] Dict: 12/20/20 1750 Trans: 12/20/20 180 [facility] [id number] Interpreted by: MUNIR QUIROS MD Diagonstic Imaging: CT Plain Films/CT/US/NM/MRI: head Comments CT head viewed by me and preliminary report reviewed. See report below: NAME: SOPHIE MILLARD [facility] REC#: [id number] PT STATUS: ADM IN : 1960 PHYSICIAN: DELROY CRANDALL MD ADMIT DATE: 12/20/20/[facility] Draft Date of Exam:12/20/20 CT HEAD WO Clinical indication: Patient with altered mental status and hyponatremia. Exam: Axial CT scan of the brain without IV contrast with coronal and sagittal reformatted images. Auto Exposure Controls were utilized during the CT exam to meet ALARA standards for radiation dose reduction. Comparison: None. Findings: There is no evidence of acute cerebral infarct, intracranial hemorrhage or gross mass effect. The brain parenchymal volume appears appropriate for patient's age. There are subtle focal areas of low-attenuation white matter changes involving both cerebral hemispheres likely related to mild chronic small vessel ischemic disease. There is normal alvarado-white matter distinction. There is no significant midline shift or herniation. Dolichoectasia of the basilar vertebral artery is noted which encroaches upon the left side of the brainstem medulla and pontomedullary junction. There is no evidence of hydrocephalus. The basal cisterns are unremarkable. The skull, extracranial soft tissue and orbits are unremarkable. There is a small to moderate sized mucus retention cyst in the anterior right maxillary sinus. There is mild mucosal thickening involving the sphenoid sinus. There is hypo-pneumatization and sclerosis of the mastoid air cells which may be from chronic sinusitis changes. Impression: 1: There is no gross CT evidence of acute intracranial process. 2: Age related brain parenchymal changes. 3: Paranasal sinus disease. Dictated on workstation # [id number] Dict: 12/20/201905 Trans: 12/20/201930 [facility] [id number] Interpreted by: TEREZA GRAYSON MD (DELROY CRANDALL MD) Departure Communication (Admissions) Time/Spoke to Admitting Phy: 18:50 Dr. Flores Time/Spoke to Consulting Phy: 18:40 Dr. Rosales (DELROY CRANDALL MD) Impression Primary Impression: Severe anemia Additional Impressions: Hyponatremia Hypokalemia Altered mental status Qualified Codes: R41.82 - Altered mental status, unspecified Hyperbilirubinemia Splenomegaly COPD (chronic obstructive pulmonary disease) Qualified Codes: J44.9 - Chronic obstructive pulmonary disease, unspecified Disposition: ADMITTED INPATIENT Condition: Improved Admissions Decision to Admit Reason: Admit from ER (General) Decision to Admit/Date: Dec 20, 2020 Time/Decision to Admit Time: 16:00 (DELROY CRANDALL MD) Departure-Patient Inst. Referrals: COREY MORALEZ DO (PCP) Primary Care Physician [facility] (Family) Primary Care Physician NAVYA BARDALES Dec 20, 2020 15:40 DELROY CRANDALL MD Dec 20, 2020 19:04
[2020-12-20] MEDS ORDERED: CEFEPIME INJECTION 1,000 MG in WATER (STERILE) FOR INJECTION 10 ML IV ONE (15:45)
[2020-12-20] MEDS ORDERED: NS IV 1000 ML 1,000 ML IV SCH (15:45)
[2020-12-20] MEDS ORDERED: NS IV 500 ML 500 ML IV ONE (15:45)
[2020-12-20 16:01] LABS: BILIRUBIN,URINE NEGATIVE (NEGATIVE); CLARITY,URINE CLEAR; COLOR,URINE YELLOW; GLUCOSE, URINE (UA) NEGATIVE (NEGATIVE); KETONES,URINE NEGATIVE (NEGATIVE); LEUKOCYTE ESTERASE ,URINE TRACE (NEGATIVE); NITRITE,URINE NEGATIVE (NEGATIVE); PROTEIN,URINE NEGATIVE (NEGATIVE)
[2020-12-20 16:10] LABS: BASOPHILS % (AUTO) 0 % (0-10); EOSINOPHILS % (AUTO) 0 % (0-10); LYMPHOCYTES # (AUTO) 0.3 10^3/uL (1.0-4.0); LYMPHOCYTES % (AUTO) 11 % (12-44); MEAN CORPUSCULAR HEMOGLOBIN 28 pg (25-34); MEAN CORPUSCULAR HGB CONC 37 g/dL (32-36); MEAN CORPUSCULAR VOLUME 75 fL (80-99); MEAN PLATELET VOLUME 9.9 fL (9.0-12.2); MONOCYTES # (AUTO) 0.2 10^3/uL (0.0-1.0); MONOCYTES % (AUTO) 8 % (0-12); NEUTROPHILS # (AUTO) 2.2 10^3/uL (1.8-7.8); NEUTROPHILS % (AUTO) 79 % (42-75); PLATELET COUNT 203 10^3/uL (130-400); WHITE BLOOD COUNT 2.8 10^3/uL (4.3-11.0)
--- NOTE | 2020-12-20 16:13 | Diagnostic Imaging Report ---
INDICATION: Sepsis. AP view of the chest is obtained with comparison made to study of 03/14/2020. FINDINGS: Heart size and pulmonary vascularity are within normal limits. There is mild blunting of the costophrenic sulci. No other significant change is seen. IMPRESSION: Blunting of the costophrenic sulci may reflect mild pleural fluid and/or thickening. Otherwise, no acute abnormality is seen. Dictated by: Dictated on workstation # [id number]
[2020-12-20 16:14] LABS: HEMATOCRIT 15 % (35-52); HEMOGLOBIN 5.5 g/dL (11.5-16.0)
[2020-12-20] MEDS ORDERED: NS IV 500 ML 500 ML IV SCH ×2 (16:15→20:00)
[2020-12-20 16:21] LABS: BACTERIA,URINE NEGATIVE /HPF; RBC,URINE RARE /HPF
[2020-12-20 16:21] LABS: ALBUMIN 3.4 GM/DL (3.2-4.5); INR 1.2 (0.8-1.4); POTASSIUM 2.9 MMOL/L (3.6-5.0); PROTHROMBIN TIME PATIENT 15.8 SEC (12.2-14.7)
[2020-12-20 16:22] LABS: CALCIUM 8.1 MG/DL (8.5-10.1)
[2020-12-20 16:24] LABS: TOTAL PROTEIN 5.3 GM/DL (6.4-8.2)
[2020-12-20 16:26] LABS: BILIRUBIN,TOTAL 3.5 MG/DL (0.1-1.0)
[2020-12-20 16:27] LABS: CREATININE SERUM 0.48 MG/DL (0.60-1.30)
[2020-12-20] MEDS ORDERED: POTASSIUM CL 10MEQ/50ML IVPB 50 ML IV ONE (17:00)
[2020-12-20 17:05] LABS: MAGNESIUM 1.9 MG/DL (1.6-2.4)
[2020-12-20] MEDS ORDERED: HOLD METFORMIN - RECEIVED CONTRAST 20 ML VIAL IV SCH (17:45)
[2020-12-20] MEDS ORDERED: NS 100 ML (IVPB) BAG IV ONE (17:45)
[2020-12-20] MEDS ORDERED: IOHEXOL 350 MG/ML 100 ML (OMNIPAQUE 350) VIAL IV ONE (17:45)
[2020-12-20] MEDS: VANCOMYCIN INJECTION 1,250 MG in NS (IVPB) 250 ML IV ONE ×2 (17:58→17:59)
--- NOTE | 2020-12-20 18:07 | Diagnostic Imaging Report ---
PROCEDURE: CT abdomen and pelvis with contrast. TECHNIQUE: Multiple contiguous axial images were obtained through the abdomen and pelvis after administration of intravenous contrast. Auto Exposure Controls were utilized during the CT exam to meet ALARA standards for radiation dose reduction. All CT scans use one or more of the following dose optimizing techniques: automated exposure control, MA and/or KvP adjustment based on patient size and exam type or iterative reconstruction. INDICATION: Abdominal pain with jaundice. COMPARISON: 03/14/2020. FINDINGS: The lung bases demonstrate scarring and pleural thickening on the right with calcified pleural plaques seen on the left and right. The heart is normal in size. There is no pericardial effusion. The liver demonstrates no focal lesion. It is borderline large in size measuring 18 cm in length. There is a small calcified granuloma present. The spleen is quite large and mildly heterogeneous, measuring up to 17.9 cm in length. The pancreas appears normal. The adrenal glands are unremarkable. There is a simple appearing cyst of the right kidney. No enhancing mass is seen. There is no hydronephrosis. The appendix is normal. The bowel loops are nondistended without obstruction. There is diverticulosis of the sigmoid colon without diverticulitis. There is a calcification in the mesentery of the right anterior abdomen measuring 1.2 cm in diameter. This has mild surrounding soft tissue density. This appears to be new since the prior exam, question if this may represent a displaced gallstone. There is no free fluid or free air. There is extensive calcific atherosclerosis of the aorta with mild ectasia. No acute osseous abnormality is seen. IMPRESSION: 1. Marked splenomegaly, similar to the prior exam. 2. There appears to be interval cholecystectomy. There is a new calcification in the right anterior mesentery. Question if this could represent a displaced gallstone. 3. Calcified pleural plaques seen at the lung bases. 4. Colonic diverticulosis without diverticulitis. Dictated by: Dictated on workstation # [id number]
[2020-12-20 18:23] LABS: ABSOLUTE RETIC # 23 10e9/uL (24-90); RETICULOCYTE % 1.24 % (0.50-2.40)
[2020-12-20 18:45] LABS: ANISOCYTOSIS MARKED; BAND NEUTROPHILS 2 %; BASOPHILS % (MANUAL) 0 %; EOSINOPHILS % (MANUAL) 1 %; LYMPHOCYTES % (MANUAL) 11 %; MICROCYTOSIS SLIGHT; MONOCYTES % (MANUAL) 4 %; NEUTROPHILS % (MANUAL) 82 %; POLYCHROMASIA SLIGHT
[2020-12-20] MEDS ORDERED: RT-ALBUTEROL SULF 2.5 MG/3 ML PRE-MIX VIAL INH STA (18:59)
--- NOTE | 2020-12-20 19:31 | Diagnostic Imaging Report ---
Clinical indication: Patient with altered mental status and hyponatremia. Exam: Axial CT scan of the brain without IV contrast with coronal and sagittal reformatted images. Auto Exposure Controls were utilized during the CT exam to meet ALARA standards for radiation dose reduction. Comparison: None. Findings: There is no evidence of acute cerebral infarct, intracranial hemorrhage or gross mass effect. The brain parenchymal volume appears appropriate for patient's age. There are subtle focal areas of low-attenuation white matter changes involving both cerebral hemispheres likely related to mild chronic small vessel ischemic disease. There is normal alvarado-white matter distinction. There is no significant midline shift or herniation. Dolichoectasia of the basilar vertebral artery is noted which encroaches upon the left side of the brainstem medulla and pontomedullary junction. There is no evidence of hydrocephalus. The basal cisterns are unremarkable. The skull, extracranial soft tissue and orbits are unremarkable. There is a small to moderate sized mucus retention cyst in the anterior right maxillary sinus. There is mild mucosal thickening involving the sphenoid sinus. There is hypo-pneumatization and sclerosis of the mastoid air cells which may be from chronic sinusitis changes. Impression: 1: There is no gross CT evidence of acute intracranial process. 2: Age related brain parenchymal changes. 3: Paranasal sinus disease. Dictated by: Dictated on workstation # [id number]
[2020-12-20] MEDS ORDERED: CATHETER FLUSH 10 ML SYR IV PRN (20:00)
[2020-12-20] MEDS: POTASSIUM CL 10 MEQ/50 ML IVPB (PRE-MIX) IV SCH ×3 (20:19→23:13)
[2020-12-20] MEDS: NS IV 1000 ML 1,000 ML IV SCH (20:19)
[2020-12-20] MEDS ORDERED: RT-ALBUTEROL/IPRATROPIUM 3 ML (DUONEB) VIAL INH PRN (20:45)
[2020-12-20] MEDS: MELATONIN 3 MG TABLET PO SCH (22:46)
[2020-12-20 23:20] LABS: CALCIUM 7.4 MG/DL (8.5-10.1); CREATININE SERUM 0.42 MG/DL (0.60-1.30); POTASSIUM 4.3 MMOL/L (3.6-5.0)
[2020-12-21] VITALS (11 sets, daily range): BP systolic 80–107; BP diastolic 55–70
[2020-12-21 02:10] LABS: POTASSIUM 3.4 MMOL/L (3.6-5.0)
[2020-12-21 02:11] LABS: CALCIUM 7.4 MG/DL (8.5-10.1)
[2020-12-21 02:15] LABS: CREATININE SERUM 0.43 MG/DL (0.60-1.30)
[2020-12-21] MEDS ORDERED: NS IV 1000 ML 1,000 ML IV ONE (03:00)
[2020-12-21] MEDS: RT-ALBUTEROL/IPRATROPIUM 3 ML (DUONEB) VIAL INH SCH ×4 (03:30→21:16)
[2020-12-21 04:42] LABS: BASOPHILS % (AUTO) 1 % (0-10); EOSINOPHILS % (AUTO) 1 % (0-10); LYMPHOCYTES # (AUTO) 0.3 10^3/uL (1.0-4.0); LYMPHOCYTES % (AUTO) 13 % (12-44); MEAN CORPUSCULAR HEMOGLOBIN 29 pg (25-34); MEAN CORPUSCULAR HGB CONC 36 g/dL (32-36); MEAN CORPUSCULAR VOLUME 79 fL (80-99); MEAN PLATELET VOLUME 10.3 fL (9.0-12.2); MONOCYTES # (AUTO) 0.2 10^3/uL (0.0-1.0); MONOCYTES % (AUTO) 8 % (0-12); NEUTROPHILS # (AUTO) 1.5 10^3/uL (1.8-7.8); NEUTROPHILS % (AUTO) 76 % (42-75); PLATELET COUNT 147 10^3/uL (130-400)
[2020-12-21 04:46] LABS: HEMATOCRIT 17 % (35-52)
[2020-12-21] MEDS: NS IV 1000 ML 1,000 ML IV SCH ×2 (04:56→08:58)
[2020-12-21 05:04] LABS: POTASSIUM 3.4 MMOL/L (3.6-5.0)
[2020-12-21 05:05] LABS: CALCIUM 7.1 MG/DL (8.5-10.1)
[2020-12-21 05:10] LABS: CREATININE SERUM 0.41 MG/DL (0.60-1.30)
[2020-12-21 08:58] LABS: CALCIUM 7.6 MG/DL (8.5-10.1); CREATININE SERUM 0.45 MG/DL (0.60-1.30); POTASSIUM 3.4 MMOL/L (3.6-5.0)
[2020-12-21] MEDS: POTASSIUM CL 10MEQ/50ML IVPB 50 ML IV SCH ×5 (08:58→22:06)
--- NOTE | 2020-12-21 09:43 | History & Physical ---
HPI History of Present Illness: 60 yo female came to ER due to feeling weak, poor appetite not able to eat much. Going on for about a week and a half. Reports she saw a doctor outpatient and they checked bilirubin and COVID19 (negative). She states her bilirubin/labs compared a little better with the labs from Dr. Rsoales in August. She still didn't feel well, so went back and they checked urine and labs and told her she had UTI and gave her cipro, she was due for last dose last night but missed it due to coming to ER. She still couldn't get up last night due to weakness, having urinary incontinence and frequency related to her symptoms. Has been urinating up to every hour or more. Denies fever, but did feel warm at times. She did vomit once, just water appearing. Had a small bowl of corn flakes yesterday, but otherwise really hasn't been eating, has been drinking. Tried to drink a lot of water, 5-6 or maybe 8 glasses. Last couple of days didn't drink as much because she didn't want to urinate every 5 minutes. Denies blood in stools. Denies diarrhea, constipation. She has history of cold agglutinin antibodies. She states she has a hard time understanding and explaining all that is going on. She had a complex hospital stay in March 2020 at with ruptured gall bladder and abscess requiring drainage, at that time had extensive labs/work up related to her hemolytic anemia, and per records, liver biopsy was recommended for when she later had her GB at. She did go back after treatment of the abscess and have her cholecystectomy, but she is not sure if they biopsied her liver. She does also have history of low sodium in past, she is not sure the answer as to why that has been. She doesn't think she has any specific treatment for that that she knows of. Records from indicate suspected SIADH. Source: patient Date seen by provider: Dec 21, 2020 Time Seen by Provider: 09:43 Attending Physician Marissa Flores MD PCP Mariana Leonard DO Consult Date of Admission Dec 20, 2020 at 18:59 Home Medications Home Medications Reviewed patient Home Medication Reconciliation performed by pharmacy medication reconciliations cardiology technician and/or nursing. Patients Allergies have been reviewed. Allergies Coded Allergies: Penicillins (Verified Allergy, Unknown, 03/14/20) latex (Verified Allergy, Unknown, RASH, 03/14/20) [id number] Hx Patient Social History Smoking Status: Current Everyday Smoker 2nd Hand Smoke Exposure: Yes Recent Hopitalizations: No Alcohol Use?: No Tobacco type used: Cigarettes Have you traveled recently?: No Immunizations Up To Date Date of Influenza Vaccine: Apr 27, 2017 Past Medical History PMHx: Cold agglutinin hemolytic anemia Hypertension COPD SurgHx: Cholecystectomy Family Medical History Family History: Alcoholism 19 FATHER Arthritis 19 MOTHER G8 BROTHER Diabetes mellitus 19 MOTHER G8 BROTHER G8 SISTER Review of Systems ([facility]) Constitutional: malaise Respiratory: short of breath Gastrointestinal: jaundice Genitourinary: frequency Reviewed Test Results Reviewed Test Results Lab Laboratory Tests Test 12/20/20 15:30 12/20/20 15:57 12/20/20 16:30 12/20/20 22:55 Range/Units Urine Color YELLOW Urine Clarity CLEAR Urine pH 7.0 5-9 Urine Specific [place] 1.010 L 1.016-1.022 Urine Protein NEGATIVE NEGATIVE Urine Glucose (UA) NEGATIVE NEGATIVE Urine Ketones NEGATIVE NEGATIVE Urine Nitrite NEGATIVE NEGATIVE Urine Bilirubin NEGATIVE NEGATIVE Urine Urobilinogen 4.0 < = 1.0 MG/DL Urine Leukocyte Esterase TRACE H NEGATIVE Urine RBC (Auto) TRACE-I NEGATIVE Urine RBC RARE /HPF Urine WBC 2-5 /HPF Urine Squamous Epithelial Cells 2-5 /HPF Urine Crystals NONE /LPF Urine Bacteria NEGATIVE /HPF Urine Casts NONE /LPF Urine Mucus NEGATIVE /LPF Urine Culture Indicated CULTURE PENDING White Blood Count 2.8 L 4.3-11.0 10^3/uL Red Blood Count 2.00 L 3.80-5.11 10^6/uL Hemoglobin 5.5 *L 11.5-16.0 g/dL Hematocrit 15 *L 35-52 % Mean Corpuscular Volume 75 L 80-99 fL Mean Corpuscular Hemoglobin 28 25-34 pg Mean Corpuscular Hemoglobin Concent 37 H 32-36 g/dL Red Cell Distribution Width 18.9 H 10.0-14.5 % Platelet Count 203 130-400 10^3/uL Mean Platelet Volume 9.9 9.0-12.2 fL Immature Granulocyte % (Auto) 1 % Neutrophils (%) (Auto) 79 H 42-75 % Lymphocytes (%) (Auto) 11 L 12-44 % Monocytes (%) (Auto) 8 0-12 % Eosinophils (%) (Auto) 0 0-10 % Basophils (%) (Auto) 0 0-10 % Neutrophils # (Auto) 2.2 1.8-7.8 10^3/uL Lymphocytes # (Auto) 0.3 L 1.0-4.0 10^3/uL Monocytes # (Auto) 0.2 0.0-1.0 10^3/uL Eosinophils # (Auto) 0.0 0.0-0.3 10^3/uL Basophils # (Auto) 0.0 0.0-0.1 10^3/uL Immature Granulocyte # (Auto) 0.0 0.0-0.1 10^3/uL Neutrophils % (Manual) 82 % Lymphocytes % (Manual) 11 % Monocytes % (Manual) 4 % Eosinophils % (Manual) 1 % Basophils % (Manual) 0 % Band Neutrophils 2 % Percent Immature Platelet Fraction 7.3 0.0-7.6 % Polychromasia SLIGHT Anisocytosis MARKED Microcytosis SLIGHT Absolute Reticulocyte Count 23 L 24-90 10e9/uL Percent Reticulocyte Count 1.24 0.50-2.40 % Prothrombin Time 15.8 H 12.2-14.7 SEC INR Comment 1.2 0.8-1.4 Activated Partial Thromboplast Time 31 24-35 SEC Sodium Level 111 *L 117 *L 135-145 MMOL/L Potassium Level 2.9 L 4.3 3.6-5.0 MMOL/L Chloride Level 77 L 88 L 98-107 MMOL/L Carbon Dioxide Level 27 22 21-32 MMOL/L Anion Gap 7 7 5-14 MMOL/L Blood Urea Nitrogen 4 L 4 L 7-18 MG/DL Creatinine 0.48 L 0.42 L 0.60-1.30 MG/DL Estimat Glomerular Filtration Rate 132 154 BUN/Creatinine Ratio 8 10 Glucose Level 108 H 105 70-105 MG/DL Lactic Acid Level 0.92 0.50-2.00 MMOL/L Calcium Level 8.1 L 7.4 L 8.5-10.1 MG/DL Corrected Calcium 8.6 8.5-10.1 MG/DL Total Bilirubin 3.5 H 0.1-1.0 MG/DL Aspartate Amino Transf (AST/SGOT) 14 5-34 U/L Alanine Aminotransferase (ALT/SGPT) 13 0-55 U/L Alkaline Phosphatase 71 40-136 U/L Ammonia 41 H 11-32 UMOL/L Total Protein 5.3 L 6.4-8.2 GM/DL Albumin 3.4 3.2-4.5 GM/DL Magnesium Level 1.9 1.6-2.4 MG/DL Lipase 7 L 8-78 U/L Serum Alcohol < 10 <10 MG/DL Test 12/21/20 01:55 12/21/20 04:35 12/21/20 08:30 12/21/20 12:10 Range/Units Sodium Level 116 *L 119 *L 123 *L 125 *L 135-145 MMOL/L Potassium Level 3.4 L 3.4 L 3.4 L 3.5 L 3.6-5.0 MMOL/L Chloride Level 88 L 93 L 96 L 98 98-107 MMOL/L Carbon Dioxide Level 22 21 20 L 21 21-32 MMOL/L Anion Gap 6 5 7 6 5-14 MMOL/L Blood Urea Nitrogen 5 L 5 L 5 L 5 L 7-18 MG/DL Creatinine 0.43 L 0.41 L 0.45 L 0.45 L 0.60-1.30 MG/DL Estimat Glomerular Filtration Rate 150 159 143 143 BUN/Creatinine Ratio 12 12 11 11 Glucose Level 103 99 99 99 70-105 MG/DL Calcium Level 7.4 L 7.1 L 7.6 L 7.7 L 8.5-10.1 MG/DL White Blood Count 2.0 L 4.3-11.0 10^3/uL Red Blood Count 2.09 L 3.80-5.11 10^6/uL Hemoglobin 6.0 *L 7.8 #L 11.5-16.0 g/dL Hematocrit 17 *L 21 L 35-52 % Mean Corpuscular Volume 79 L 80-99 fL Mean Corpuscular Hemoglobin 29 25-34 pg Mean Corpuscular Hemoglobin Concent 36 32-36 g/dL Red Cell Distribution Width 18.0 H 10.0-14.5 % Platelet Count 147 130-400 10^3/uL Mean Platelet Volume 10.3 9.0-12.2 fL Immature Granulocyte % (Auto) 2 % Neutrophils (%) (Auto) 76 H 42-75 % Lymphocytes (%) (Auto) 13 12-44 % Monocytes (%) (Auto) 8 0-12 % Eosinophils (%) (Auto) 1 0-10 % Basophils (%) (Auto) 1 0-10 % Neutrophils # (Auto) 1.5 L 1.8-7.8 10^3/uL Lymphocytes # (Auto) 0.3 L 1.0-4.0 10^3/uL Monocytes # (Auto) 0.2 0.0-1.0 10^3/uL Eosinophils # (Auto) 0.0 0.0-0.3 10^3/uL Basophils # (Auto) 0.0 0.0-0.1 10^3/uL Immature Granulocyte # (Auto) 0.0 0.0-0.1 10^3/uL Test 12/21/20 16:05 Range/Units Physical Exam-([facility]) Physical Exam Vital Signs VS - Last 72 Hours, by Label 12/20/20 12/20/20 12/20/20 12/20/20 16:21 18:43 19:23 19:30 Temp 37.0 Pulse 109 103 Resp 18 18 20 B/P (MAP) 139/80 (99) 90/67 100/66 Pulse Ox 98 98 97 O2 Delivery Room Air Room Air Room Air 12/20/20 12/20/20 12/20/20 12/20/20 19:54 20:00 20:26 21:00 Temp 36.2 37.0 Pulse 102 100 109 96 Resp 22 20 B/P (MAP) 83/55 (64) 88/53 (65) Pulse Ox 100 98 100 O2 Delivery Room Air Room Air FiO2 21 12/20/20 12/20/20 12/20/20 12/20/20 21:03 21:05 21:15 21:17 Temp 36.2 36.3 Pulse 96 91 95 Resp 16 16 18 B/P (MAP) 88/53 89/58 (68) 89/58 Pulse Ox 99 100 100 O2 Delivery Room Air Room Air Room Air Room Air 12/20/20 12/20/20 12/20/20 12/20/20 21:30 21:45 22:00 23:00 Pulse 93 96 101 96 Resp 14 16 17 21 B/P (MAP) 87/61 (70) 88/64 (72) 105/68 (80) 100/70 (80) Pulse Ox 97 100 100 99 O2 Delivery Room Air Room Air Room Air Room Air 12/20/20 12/20/20 12/20/20 12/21/20 23:18 23:30 23:45 00:00 Temp 36.5 36.5 36.5 Pulse 94 88 82 87 Resp 18 20 18 20 B/P (MAP) 101/65 92/57 84/58 83/55 (64) Pulse Ox 100 100 100 99 O2 Delivery Nasal Cannula Nasal Cannula Nasal Cannula Room Air O2 Flow Rate 2.00 2.00 2.00 12/21/20 12/21/20 12/21/20 12/21/20 01:00 01:00 03:46 04:00 Pulse 101 102 Resp 18 B/P (MAP) 86/55 (65) Pulse Ox 97 96 O2 Delivery Nasal Cannula Nasal Cannula Room Air O2 Flow Rate 2.00 2.00 12/21/20 12/21/20 12/21/20 12/21/20 05:00 05:20 05:40 06:46 Temp 36.7 36.8 Pulse 101 105 108 Resp 20 24 B/P (MAP) 80/61 89/61 Pulse Ox 96 97 O2 Delivery Nasal Cannula Room Air Room Air O2 Flow Rate 2.00 12/21/20 12/21/20 12/21/20 12/21/20 08:00 08:00 09:05 09:10 Temp 37.4 37.0 Pulse 108 105 Resp 22 16 B/P (MAP) 102/69 (80) 90/64 (73) Pulse Ox 96 97 96 O2 Delivery Room Air Nasal Cannula Room Air Room Air O2 Flow Rate 2.00 0.00 12/21/20 12/21/20 12/21/20 12/21/20 09:20 13:23 13:36 14:54 Temp 37.0 37.2 Pulse 109 114 118 Resp 24 24 B/P (MAP) 101/68 107/70 (82) Pulse Ox 99 99 100 O2 Delivery Room Air Room Air Room Air Capillary Refill : Less Than 3 Seconds General Appearance: no apparent distress Eyes: Left Eye Scleral Icterus HEENT: PERRL/EOMI Respiratory: lungs clear, normal breath sounds Cardiovascular: no murmur, tachycardia Gastrointestinal: normal bowel sounds, non tender, soft Neurologic/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 CT head without acute findings. Qualifiers: Qualified Codes: R41.82 - Altered mental status, unspecified (2) Hyponatremia Status: Acute Assessment & Plan: Has occurred in past, at hospitalization 03/2020 suspected SIADH, outpatient has been 120s-130s. Rate of correction somewhat high overnight, will hold IVF and monitor closely. Fluid restriction. (3) Hypokalemia Status: Acute Assessment & Plan: Replace and follow. (4) Severe anemia Status: Acute Assessment & Plan: s/p 2 units and still with hemoglobin below 7, suspect hemolytic anemia related to cold agglutinin disease, she admits she has been drinking iced tea and has her air conditioning set at 65 degrees. Third unit transfusing. (5) Hypotension Status: Acute Assessment & Plan: Suspect hypovolemic, IVF with caution given rapid sodium correction and monitor closely. (6) Cold agglutinin disease Status: Chronic (7) Iron overload Status: Chronic Assessment & Plan: Suspected based on labs in March at , MRCP with diffuse iron overload throughout liver and spleen, but Hematology was unclear for sure and had discussed liver bx, uncertain if this was done. Recommended no iron, but it was restarted outpatient, will hold. (8) COPD (chronic obstructive pulmonary disease) Status: Acute Qualifiers: Qualified Codes: J44.9 - Chronic obstructive pulmonary disease, unspecified (9) Hyperbilirubinemia Status: Acute (10) Splenomegaly Status: Acute Assessment & Plan: Chronic, uncertain etiology. Following with Hematology. MARISSA FLORES MD Dec 21, 2020 09:43
[2020-12-21 12:18] LABS: HEMOGLOBIN 7.8 g/dL (11.5-16.0)
[2020-12-21 12:38] LABS: CALCIUM 7.7 MG/DL (8.5-10.1); CREATININE SERUM 0.45 MG/DL (0.60-1.30); POTASSIUM 3.5 MMOL/L (3.6-5.0)
[2020-12-21] MEDS ORDERED: OMEP20CA18 PO (13:44)
[2020-12-21] MEDS ORDERED: RT-ALBUINH INH (13:44)
[2020-12-21] MEDS ORDERED: IBUP-30 PO (13:44)
[2020-12-21] MEDS ORDERED: BUDE10.2 INH (13:44)
[2020-12-21] MEDS ORDERED: CIPR500T5 PO (13:44)
[2020-12-21] MEDS ORDERED: FAMO20TA5 PO (13:44)
[2020-12-21] MEDS ORDERED: HYDR12.56 PO (13:44)
[2020-12-21] MEDS ORDERED: FERR-84 PO (13:45)
[2020-12-21 16:27] LABS: CALCIUM 7.9 MG/DL (8.5-10.1); CREATININE SERUM 0.49 MG/DL (0.60-1.30); POTASSIUM 3.2 MMOL/L (3.6-5.0)
[2020-12-21] MEDS: D5W 1000 ML IV SOLUTION 1,000 ML IV SCH (16:37)
[2020-12-21 17:55] LABS: EOSINOPHILS % (AUTO) 0 % (0-10); MEAN PLATELET VOLUME 10.4 fL (9.0-12.2)
[2020-12-21 17:57] LABS: ABSOLUTE RETIC # 30 10e9/uL (24-90); BASOPHILS % (AUTO) 1 % (0-10); HEMATOCRIT 23 % (35-52); HEMOGLOBIN 8.2 g/dL (11.5-16.0); LYMPHOCYTES # (AUTO) 0.4 10^3/uL (1.0-4.0); LYMPHOCYTES % (AUTO) 15 % (12-44); MEAN CORPUSCULAR HEMOGLOBIN 31 pg (25-34); MEAN CORPUSCULAR HGB CONC 36 g/dL (32-36); MEAN CORPUSCULAR VOLUME 85 fL (80-99); MONOCYTES # (AUTO) 0.2 10^3/uL (0.0-1.0); MONOCYTES % (AUTO) 9 % (0-12); NEUTROPHILS # (AUTO) 1.7 10^3/uL (1.8-7.8); NEUTROPHILS % (AUTO) 73 % (42-75); PLATELET COUNT 170 10^3/uL (130-400); RETICULOCYTE % 1.11 % (0.50-2.40); WHITE BLOOD COUNT 2.3 10^3/uL (4.3-11.0)
[2020-12-21 18:00] LABS: ALBUMIN 3.3 GM/DL (3.2-4.5)
[2020-12-21 18:03] LABS: TOTAL PROTEIN 5.2 GM/DL (6.4-8.2)
[2020-12-21 18:05] LABS: BILIRUBIN,TOTAL 6.1 MG/DL (0.1-1.0)
[2020-12-21 18:59] LABS: SMEAR SCAN COMMENT YES
--- NOTE | 2020-12-21 20:03 | CONSULTATION REPORT ---
DATE OF SERVICE: 12/21/2020 ROOM NUMBER: The patient is admitted to room 508. PHYSICIAN REQUESTING CONSULTATION: Heaven Flores MD. IMPRESSION: 1. A 60-year-old female admitted with mental status changes. 2. Significant hyponatremia, most likely due to SIADH. 3. History of cold agglutinin disease and hemolytic anemia. 4. Severe and symptomatic anemia at the time of admission. 5. Recent outpatient antibiotic therapy for suspected infection. 6. Chronic obstructive pulmonary disease with continued tobacco use. RECOMMENDATIONS: 1. Transfuse PRBCs to maintain hemoglobin more than 7 grams per deciliter. Use blood warmer for any blood product or IV fluid infusion. 2. SIADH is probably due to infectious etiology. CT head unremarkable with no pathology identified. Probably respiratory infection triggering SIADH as well as hemolytic anemia. Monitor chest x-ray or CT chest and initiate antibiotic if necessary. 3. Maintain room temperature close to 80 degrees Fahrenheit if possible. 4. Overall, prognosis guarded. HISTORY OF PRESENT ILLNESS: The patient is a 60-year-old female who was diagnosed with cold agglutinin disease since early 2017. She was following with Dr. Rincon at that time until his departure. She developed an abdominal abscess with perforation of the gallbladder and liver abscess requiring catheter drainage and broad spectrum antibiotic therapy. This has healed and she has been gradually improving. She required cholecystectomy with ERCP and a stent placement later on. Recently, she has not been maintaining her home temperature high with the [facility] air conditioner set at 65 degrees Fahrenheit. She has also been sick with a probable infection and was being treated on an outpatient basis with ciprofloxacin. As she continued to worsen, she came to the emergency room in [place] for evaluation and was admitted. At the time of admission, she was noted to have symptomatic anemia, significant hyponatremia. Evaluation in the emergency room with a CT scan of the head was unremarkable. Chest x-ray showed no obvious evidence of pneumonia, but blunting of costophrenic angles was noted. Hematology consultation was requested for concurrent management. PAST MEDICAL HISTORY: Significant for hypertension and COPD. Diagnosed with cold agglutinin disease and hemolytic anemia in early 2017. This was primary as no secondary cause could be identified. She was on surveillance with low-grade hemolysis until recently. PREVIOUS SURGERIES: Include a partial cholecystectomy with ERCP and stent placement for perforated gallbladder with liver abscess. She required catheter drainage and prolonged antibiotic therapy before. 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 SOCIAL HISTORY: The patient is and lives in [place], [place]. She has three children, a son who lives in [place] and two daughters who live close by. 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 She has been smoking up to two packs of cigarettes for 40 plus years and is continuing to smoke. No significant alcohol or recreational drug use. FAMILY HISTORY: Significant for diabetes mellitus in her mother, brother and sister. Arthritis in mother and her brother. No other medical problems that the patient knows of. PHYSICAL EXAMINATION: GENERAL: Showed an elderly female, weak appearing, somewhat confused, but answering simple questions appropriately. VITAL SIGNS: Temperature was 36.8, pulse rate 116, respirations 19, and blood pressure 97/70 with oxygen saturation of 98% on room air. HEENT: Normocephalic, extraocular muscles intact, conjunctivae mildly icteric, and oral mucosa moist. NECK: Supple, with no JVD. No cervical, supraclavicular or axillary lymphadenopathy palpable. CHEST: Symmetrical. LUNGS: With diminished breath sounds bilaterally without any wheezes or rales. CARDIOVASCULAR: Tachycardic, regular with no murmurs or gallops heard. ABDOMEN: Soft and nontender with no hepatosplenomegaly or other masses palpable. EXTREMITIES: Showed no edema. NEUROLOGIC: Showed no focal motor deficits. The patient did have mild confusion, but was able to answer most of the questions appropriately. LABORATORY DATA: Reviewed her lab work. CBC done at the time of admission showed WBC 2.8, hemoglobin 5.5, MCV 75, and platelet count 203,000 with a neutrophil count 2.2 and lymphocyte count 0.3. Reticulocyte count was 23,000. Repeat CBC after two units of PRBC transfusion showed a hemoglobin level of 6.0. After a third unit of transfusion, her hemoglobin level was 7.8 done around noon today. CMP done at the time of admission showed sodium level of 111, potassium 2.9, BUN 4 and creatinine 0.48 with GFR 132 mL per minute. Corrected calcium was 8.6. Total bilirubin was elevated at 3.5 with the rest of the liver function studies within normal limits. Sodium level done at noon today was 125 with potassium level of 3.5. Repeat CBC, CMP, LDH, and haptoglobin level was ordered for today evening with the results pending. Last cold agglutinin titer from 07/20/2020 was positive in . Thank you for allowing me to participate in this patient's care. I will follow the patient with you and make appropriate recommendations. Job ID: [id number] DocumentID: [id number] Dictated Date: 12/21/2020 19:10:00 Healthcare Recruiter Date: 12/21/2020 20:02:16 Dictated By: CONSUELO BLANC MD
[2020-12-21 20:08] LABS: CALCIUM 8.1 MG/DL (8.5-10.1); CREATININE SERUM 0.49 MG/DL (0.60-1.30); POTASSIUM 3.4 MMOL/L (3.6-5.0)
[2020-12-21] MEDS: MELATONIN 3 MG TABLET PO SCH (20:49)
[2020-12-21] MEDS ORDERED: NON-FORMULARY MEDICATION 1 EA EA (Budesonide/Formoterol Fumarate (Symbicort 160-4.5 Mcg In INH SCH (21:00)
[2020-12-21] MEDS: RT--FLUTICASONE/SALMETEROL 232-14 (AIRDUO RespiCLICK) IH SCH (21:16)
[2020-12-21] MEDS ORDERED: POTASSIUM CL 10MEQ/50ML IVPB 50 ML IV ONE (22:05)
[2020-12-22] MEDS: RT-ALBUTEROL/IPRATROPIUM 3 ML (DUONEB) VIAL INH SCH ×4 (03:08→20:02)
[2020-12-22 04:00] VITALS: BP 107/80
[2020-12-22] MEDS: D5W 1000 ML IV SOLUTION 1,000 ML IV SCH ×2 (04:48→06:40)
[2020-12-22 05:30] LABS: HEMATOCRIT 22 % (35-52); HEMOGLOBIN 7.6 g/dL (11.5-16.0); MEAN CORPUSCULAR HEMOGLOBIN 29 pg (25-34); MEAN CORPUSCULAR HGB CONC 35 g/dL (32-36); MEAN CORPUSCULAR VOLUME 81 fL (80-99); MEAN PLATELET VOLUME 10.2 fL (9.0-12.2); PLATELET COUNT 168 10^3/uL (130-400); WHITE BLOOD COUNT 2.4 10^3/uL (4.3-11.0)
[2020-12-22 05:40] LABS: POTASSIUM 3.2 MMOL/L (3.6-5.0)
[2020-12-22 05:41] LABS: CALCIUM 7.7 MG/DL (8.5-10.1)
[2020-12-22 05:42] LABS: TOTAL PROTEIN 4.7 GM/DL (6.4-8.2)
[2020-12-22 05:44] LABS: BILIRUBIN,TOTAL 3.7 MG/DL (0.1-1.0)
[2020-12-22 05:46] LABS: CREATININE SERUM 0.47 MG/DL (0.60-1.30)
[2020-12-22] MEDS: RT--FLUTICASONE/SALMETEROL 232-14 (AIRDUO RespiCLICK) IH SCH ×2 (07:02→19:59)
[2020-12-22 07:58] VITALS: BP 104/67
[2020-12-22] MEDS: PANTOPRAZOLE 20 MG TABLET (PROTONIX) PO SCH (08:18)
[2020-12-22] MEDS: FAMOTIDINE 20 MG (PEPCID) TABLET PO SCH (08:18)
[2020-12-22] MEDS ORDERED: OMEPRAZOLE 20 MG (PriLOSEC) CAP NON-FORMULARY PO SCH (09:00)
--- NOTE | 2020-12-22 11:15 | Progress Note ---
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 Patient received 3 units of PRBCs with relatively stable hemoglobin. Reticulocyte count low for level of anemia. Will start patient on folic acid 1 mg daily. Chest x-ray with atelectasis/infiltrate in lung, may consider bronchodilators and antibiotics to cover mycoplasma. She has significant COPD and continued tobacco use. Monitor CBC, reticulocyte count, LDH and liver panel serially. Bilirubin has decreased compared to yesterday. Overall patient feels slightly better and is more alert and oriented. I am not media consultant for the weekend but can be reached on my cell phone for emergencies. Focused Exam Lactate Level 12/20/20 15:57: Lactic Acid Level 0.92 CONSUELO BLANC Dec 22, 2020 11:15
[2020-12-22 11:22] VITALS: BP 105/93
--- NOTE | 2020-12-22 11:30 | Progress Note ---
Subjective Subjective/Events-last exam States she is feeling "okay", is "here". Focused Exam Lactate Level 12/20/20 15:57: Lactic Acid Level 0.92 Objective Exam Last Set of Vital Signs Vital Signs Date Time Temp Pulse Resp B/P (MAP) Pulse Ox O2 Delivery O2 Flow Rate FiO2 12/22/20 11:22 36.7 105 27 105/93 (97) 100 Room Air 12/21/20 09:10 0.00 12/20/20 20:26 21 Capillary Refill : Less Than 3 Seconds I&O Intake and Output 12/22/20 00:00 Intake Total 2810 ml Balance 2810 ml Intake Oral 350 ml IV Total 2310 ml Other 150 ml # Voids 18 # Bowel Movements 1 General: Alert, Oriented X3, No Acute Distress Lungs: Other (decreased air movement) Heart: Regular Rate Skin: Other (jaundice) Neuro: Normal Speech Psych/Mental Status: Mood NL Results/Procedures Lab Laboratory Tests 12/21/20 12:10: Hemoglobin 7.8#L, Hematocrit 21L, Sodium Level 125*L, Potassium Level 3.5L, Chloride Level 98, Carbon Dioxide Level 21, Anion Gap 6, Blood Urea Nitrogen 5L, Creatinine 0.45L, Estimat Glomerular Filtration Rate 143, BUN/Creatinine Ratio 11, Glucose Level 99, Calcium Level 7.7L 12/21/20 16:05: Hemoglobin 8.2L, Hematocrit 23L, Sodium Level 126L, Potassium Level 3.2L, Chloride Level 98, Carbon Dioxide Level 21, Anion Gap 7, Blood Urea Nitrogen 5L, Creatinine 0.49L, Estimat Glomerular Filtration Rate 129, BUN/Creatinine Ratio 10, Glucose Level 101, Calcium Level 7.9L, White Blood Count 2.3L, Red Blood Count 2.68L, Mean Corpuscular Volume 85, Mean Corpuscular Hemoglobin 31, Mean Corpuscular Hemoglobin Concent 36, Red Cell Distribution Width 17.7H, Platelet Count 170, Mean Platelet Volume 10.4, Immature Granulocyte % (Auto) 1, Neutrophils (%) (Auto) 73, Lymphocytes (%) (Auto) 15, Monocytes (%) (Auto) 9, Eosinophils (%) (Auto) 0, Basophils (%) (Auto) 1, Neutrophils # (Auto) 1.7L, Lymphocytes # (Auto) 0.4L, Monocytes # (Auto) 0.2, Eosinophils # (Auto) 0.0, Basophils # (Auto) 0.0, Immature Granulocyte # (Auto) 0.0, Percent Immature Platelet Fraction 6.0, Absolute Reticulocyte Count 30, Percent Reticulocyte Count 1.11, Corrected Calcium 8.5, Total Bilirubin 6.1H, Aspartate Amino Transf (AST/SGOT) 11, Alanine Aminotransferase (ALT/SGPT) 11, Alkaline Phosphatase 73, Lactate Dehydrogenase 219, Total Protein 5.2L, Albumin 3.3, Smear Scan YES 12/21/20 19:43: Sodium Level 127L, Potassium Level 3.4L, Chloride Level 98, Carbon Dioxide Level 22, Anion Gap 7, Blood Urea Nitrogen 5L, Creatinine 0.49L, Estimat Glomerular Filtration Rate 129, BUN/Creatinine Ratio 10, Glucose Level 93, Calcium Level 8.1L 12/22/20 05:24: Hemoglobin 7.6L, Hematocrit 22L, Sodium Level 124*L, Potassium Level 3.2L, Chloride Level 99, Carbon Dioxide Level 21, Anion Gap 7, Blood Urea Nitrogen 4L, Creatinine 0.47L, Estimat Glomerular Filtration Rate 136, BUN/Creatinine Ratio 9, Glucose Level 92, Calcium Level 7.7L, White Blood Count 2.4L, Red Blood Count 2.65L, Mean Corpuscular Volume 81, Mean Corpuscular Hemoglobin 29, Mean Corpus cular Hemoglobin Concent 35, Red Cell Distribution Width 17.3H, Platelet Count 168, Mean Platelet Volume 10.2, Corrected Calcium 8.5, Total Bilirubin 3.7#H, Aspartate Amino Transf (AST/SGOT) 13, Alanine Aminotransferase (ALT/SGPT) 12, Alkaline Phosphatase 65, Total Protein 4.7L, Albumin 3.0L Microbiology 12/20/20 Blood Culture - Preliminary, Resulted No growth Assessment/Plan Assessment/Plan (1) Altered mental status Status: Acute Assessment & Plan: Seems improved, oriented this morning, has occasional word finding difficulty, suspect due to hyponatremia. CT head without acute findings. 12/22 continues to improve, but unclear if truly at baseline yet Qualifiers: Qualified Codes: R41.82 - Altered mental status, unspecified (2) Hyponatremia Status: Acute Assessment & Plan: Has occurred in past, at hospitalization 03/2020 suspected SIADH, outpatient has been 120s-130s. Rate of correction somewhat high overnight, will hold IVF and monitor closely. Fluid restriction. 12/22 Changed to D5 overnight to avoid overcorrection, Na 125 this am, hold fluid and monitor q4. (3) Hypokalemia Status: Acute Assessment & Plan: Replace and follow. (4) Severe anemia Status: Acute Assessment & Plan: s/p 2 units and still with hemoglobin below 7, suspect hemolytic anemia related to cold agglutinin disease, she admits she has been drinking iced tea and has her air conditioning set at 65 degrees. Third unit transfusing. 12/22- above 7 on post transfusion and am labs. (5) Hypotension Status: Acute Assessment & Plan: Suspect hypovolemic, IVF with caution given rapid sodium correction and monitor closely. (6) Cold agglutinin disease Status: Chronic (7) Iron overload Status: Chronic Assessment & Plan: Suspected based on labs in March at [facility], MRCP with diffuse iron overload throughout liver and spleen, but Hematology was unclear for sure and had discussed liver bx, uncertain if this was done. Recommended no iron, but it was restarted outpatient, will hold. (8) COPD (chronic obstructive pulmonary disease) Status: Acute Qualifiers: Qualified Codes: J44.9 - Chronic obstructive pulmonary disease, unspecified (9) Hyperbilirubinemia Status: Acute Assessment & Plan: Due to hemolysis, improving, follow. (10) Splenomegaly Status: Acute Assessment & Plan: Chronic, uncertain etiology. Following with Hematology. MARISSA JARRETT MD Dec 22, 2020 11:30
[2020-12-22 12:52] LABS: CREATININE SERUM 0.47 MG/DL (0.60-1.30)
[2020-12-22] MEDS ORDERED: POTASSIUM BICARB 20 MEQ (EFFER-K) TABLET PO NR (13:15)
[2020-12-22 16:00] VITALS: BP 95/66
[2020-12-22 16:51] LABS: POTASSIUM 3.4 MMOL/L (3.6-5.0)
[2020-12-22 16:52] LABS: CALCIUM 7.9 MG/DL (8.5-10.1)
[2020-12-22 16:56] LABS: CREATININE SERUM 0.52 MG/DL (0.60-1.30)
[2020-12-22 20:00] VITALS: BP 99/74
[2020-12-22 20:38] LABS: POTASSIUM 3.4 MMOL/L (3.6-5.0)
[2020-12-22 20:39] LABS: CALCIUM 7.8 MG/DL (8.5-10.1)
[2020-12-22 20:43] LABS: CREATININE SERUM 0.52 MG/DL (0.60-1.30)
[2020-12-22] MEDS: MELATONIN 3 MG TABLET PO SCH (22:00)
[2020-12-22] MEDS ORDERED: KCL 20 MEQ TAB (K-DUR) PO ONE (22:15)
[2020-12-23] VITALS: BP 117/86
[2020-12-23 01:36] LABS: POTASSIUM 3.4 MMOL/L (3.6-5.0)
[2020-12-23 01:37] LABS: CALCIUM 7.8 MG/DL (8.5-10.1)
[2020-12-23 01:42] LABS: CREATININE SERUM 0.5 MG/DL (0.60-1.30)
[2020-12-23] MEDS: RT-ALBUTEROL/IPRATROPIUM 3 ML (DUONEB) VIAL INH SCH ×2 (02:15→07:27)
[2020-12-23 04:00] VITALS: BP 117/78
[2020-12-23] MEDS: RT--FLUTICASONE/SALMETEROL 232-14 (AIRDUO RespiCLICK) IH SCH (07:27)
[2020-12-23] MEDS: FAMOTIDINE 20 MG (PEPCID) TABLET PO SCH (08:10)
[2020-12-23] MEDS: PANTOPRAZOLE 20 MG TABLET (PROTONIX) PO SCH (08:10)
[2020-12-23 08:19] VITALS: BP 121/81
[2020-12-23 08:26] LABS: HEMATOCRIT 24 % (35-52); MEAN CORPUSCULAR HEMOGLOBIN 29 pg (25-34); MEAN CORPUSCULAR HGB CONC 34 g/dL (32-36); MEAN CORPUSCULAR VOLUME 86 fL (80-99); MEAN PLATELET VOLUME 9.6 fL (9.0-12.2); PLATELET COUNT 159 10^3/uL (130-400); WHITE BLOOD COUNT 2.2 10^3/uL (4.3-11.0)
[2020-12-23 08:37] LABS: POTASSIUM 3.9 MMOL/L (3.6-5.0)
[2020-12-23 08:38] LABS: CALCIUM 8.1 MG/DL (8.5-10.1)
[2020-12-23 08:42] LABS: CREATININE SERUM 0.5 MG/DL (0.60-1.30)
[2020-12-23] MEDS ORDERED: FOLIC ACID 1 MG TAB PO SCH (09:00)
[2020-12-23 12:22] VITALS: BP 126/88
--- NOTE | 2020-12-23 12:50 | Discharge Summary ---
Diagnosis/Chief Complaint Date of Admission Dec 20, 2020 at 18:59 Date of Discharge Discharge Date: Dec 23, 2020 [facility] Of Discharge Summary Discharge Physical Exam Allergies: Coded Allergies: Penicillins (Verified Allergy, Unknown, 03/14/20) latex (Verified Allergy, Unknown, RASH, 03/14/20) Vitals & I&Os Vital Signs Date Time Temp Pulse Resp B/P (MAP) Pulse Ox O2 Delivery O2 Flow Rate FiO2 12/23/20 12:22 36.8 107 20 126/88 (101) 99 Room Air 12/21/20 09:10 0.00 12/20/20 20:26 21 General Appearance: No Apparent Distress, Chronically ill HEENT: Pale Conjunctivae (L), Pale Conjunctivae (R) Respiratory: No Accessory Muscle Use, No Respiratory Distress, Other (Diminished breath sounds posteriorly few fine rales scattered no rhonchi or wheezing) Cardiovascular: Regular Rate, Rhythm, No Murmur Hospital Course Was the Problem List Reviewed?: Yes Patient presented to the emergency room with extreme fatigue and reported poor p.o. intake. She has history of cold agglutinin autoimmune hemolytic anemia and was noted to have a hemoglobin of 5.5 in addition to this her sodium level was 125 with a potassium of 3. Bilirubin level was elevated compatible with anemia secondary to exacerbation of cold agglutinin disease. She reports that she keeps her thermostat at 65 degrees the likely culprit of this current flare. She received 1 or 2 units of packed cells and on the day of her discharge hemoglobin was up to 8 with normalizing bilirubin level. Her sodium levels up to 131 with a potassium in the 4 range as I recall. Symptomatically she is feeling much better and requesting discharge. Discussed the importance of significantly increasing her thermostat no lower than 74 and she will follow up with Dr. Tran with an upcoming appointment in several weeks. Hydrochlorothiazide will be discontinued with no other medication changes. Labs (last 24 hrs) Laboratory Tests 12/22/20 16:30: Sodium Level 128L, Potassium Level 3.4L, Chloride Level 100, Carbon Dioxide Level 23, Anion Gap 5, Blood Urea Nitrogen 3L, Creatinine 0.52L, Estimat Glomerular Filtration Rate 121, BUN/Creatinine Ratio 6, Glucose Level 103, Calcium Level 7.9L 12/22/20 20:08: Sodium Level 129L, Potassium Level 3.4L, Chloride Level 100, Carbon Dioxide Level 21, Anion Gap 8, Blood Urea Nitrogen 3L, Creatinine 0.52L, Estimat Glomerular Filtration Rate 121, BUN/Creatinine Ratio 6, Glucose Level 90, Calcium Level 7.8L 12/23/20 01:20: Sodium Level 130L, Potassium Level 3.4L, Chloride Level 100, Carbon Dioxide Level 21, Anion Gap 9, Blood Urea Nitrogen 3L, Creatinine 0.50L, Estimat Glomerular Filtration Rate 126, BUN/Creatinine Ratio 6, Glucose Level 88, Calcium Level 7.8L 12/23/20 08:16: Sodium Level 131L, Potassium Level 3.9, Chloride Level 103, Carbon Dioxide Level 21, Anion Gap 7, Blood Urea Nitrogen 3L, Creatinine 0.50L, Estimat Glomerular Filtration Rate 126, BUN/Creatinine Ratio 6, Glucose Level 101, Calcium Level 8.1L, White Blood Count 2.2L, Red Blood Count 2.78L, Hemoglobin 8.0L, Hematocrit 24L, Mean Corpuscular Volume 86, Mean Corpuscular Hemoglobin 29, Mean Cor puscular Hemoglobin Concent 34, Red Cell Distribution Width 18.4H, Platelet Count 159, Mean Platelet Volume 9.6 Microbiology 12/20/20 Blood Culture - Preliminary, Resulted No growth 12/20/20 Urine Culture - Final, Complete NO GROWTH Patient resulted labs reviewed. Pending Labs Laboratory Tests 12/23/20 08:16: White Blood Count 2.2, Red Blood Count 2.78, Hemoglobin 8.0, Hematocrit 24, Mean Corpuscular Volume 86, Mean Corpuscular Hemoglobin 29, Mean Corpuscular Hemoglobin Concent 34, Red Cell Distribution Width 18.4, Platelet Count 159, Mean Platelet Volume 9.6, Sodium Level 131, Potassium Level 3.9, Chloride Level 103, Carbon Dioxide Level 21, Anion Gap 7, Blood Urea Nitrogen 3, Creatinine 0.50, Estimat Glomerular Filtration Rate 126, BUN/Creatinine Ratio 6, Glucose Level 101, Calcium Level 8.1 Discussion & Recommendations Discharge Planning: >30 minutes discharge planning Discharge Home Medications: Active Scripts Active Reported Iron (Ferrous Sulfate) 325 Mg Tablet 325 Mg PO BID SPACE IRON OUT FROM ANTIBIOTICS Advil (Ibuprofen) 200 Mg Tablet 400 Mg PO Q8H PRN Famotidine 20 Mg Tablet 20-40 Mg PO DAILY Proventil Hfa (Albuterol Sulfate) 6.7 Gm Hfa.aer.ad 2 Puff INH Q4H PRN Omeprazole 20 Mg Capsule.dr 20 Mg PO DAILY Hydrochlorothiazide 12.5 Mg Tablet 12.5 Mg PO DAILY Symbicort 160-4.5 Mcg Inhaler (Budesonide/Formoterol Fumarate) 10.2 Gm Hfa.aer.ad 2 Puff INH BID Ciprofloxacin HCl 500 Mg Tablet 500 Mg PO BID FILLED 12-14-2020 #14/7 DAY SUPPLY Instructions to patient/family Please see electronic discharge instructions given to patient. Copy Copies To 1: COREY MORALEZ DO Copies To 2: CONSUELO BLANC MARK D MD Dec 23, 2020 12:50
== END 2020-12-23 14:10 | disposition home or self-care (01) | DRG 809 ==
LOC: EDUNIT# 15:25 → ER 15:27 → CSD 18:59
PROVIDERS: ADMIT Family Medicine; ATTEND Internal Medicine
DX: D59.12 Cold autoimmune hemolytic anemia (principal); E22.2 Syndrome of inappropriate secretion of antidiuretic hormone; E87.6 Hypokalemia; R41.82 Altered mental status, unspecified; J44.9 Chronic obstructive pulmonary disease, unspecified; F17.210 Nicotine dependence, cigarettes, uncomplicated; I10 Essential (primary) hypertension; E80.6 Other disorders of bilirubin metabolism; I95.9 Hypotension, unspecified; R16.1 Splenomegaly, not elsewhere classified; Z88.0 Allergy status to penicillin; Z91.040 Latex allergy status
CPT/HCPCS: 36415; 70450; 71045; 74177; 80048; 80053; 80320; 81000; 82140; 82728; 83010; 83540; 83550; 83605; 83615; 83690; 83735; 85007; 85014; 85018; 85025; 85027; 85045; 85055; 85610; 85730; 86850; 86900; 86901; 86920; 87040; 87088; 94640

== ENCOUNTER 2020-12-25 13:48 | Emergency (ER) | payer MEDICAID ==
[~2020-12-25] VITALS: Ht 177 cm; Wt 61.6 kg
[~2020-12-25 13:48] MED LIST changes: +BUDE10.2 INH; +CIPR500T5 PO; +FAMO20TA5 PO; +FERR-84 PO; +HYDR12.56 PO; +IBUP-30 PO; +OMEP20CA18 PO; +RT-ALBUINH INH
--- NOTE | 2020-12-25 14:24 | ED Respiratory ---
General Chief Complaint: Respiratory Problems Stated Complaint: SOB Source: patient, EMS Exam Limitations: no limitations History of Present Illness Date Seen by Provider: Dec 25, 2020 Time Seen by Provider: 13:45 Initial Comments Patient to the ER by EMS from home with chief complaint of shortness of air. EMS said they put her on 2 L but she does not wear oxygen at baseline. Patient has a history of COPD and was recently discharged from the hospital 2 days ago on the . She was admitted for blood transfusion and concern for hemolytic anemia with elevated bilirubin. She has a history of cold agglutinin autoimmune hemolytic anemia as well she was admitted with hyponatremia which improved after discontinuing the hydrochlorothiazide. She follows with Dr. Tran. Primary care through Dr. Leonard, [facility]. She did use a couple puffs of her inhaler today. She does not feel that it helped but she states she is subjectively still feels short of breath. Allergies and Home Medications Allergies Coded Allergies: Penicillins (Verified Allergy, Unknown, 03/14/20) latex (Verified Allergy, Unknown, RASH, 03/14/20) Patient Home Medication List Home Medication List Reviewed: Yes Albuterol Sulfate (Proventil Hfa) 6.7 Gm Hfa.aer.ad, 2 PUFF INH Q4H PRN for SHORTNESS OF BREATH, (Reported) Entered as Reported by: VARINDER MASSEY on 12/21/20 1344 Albuterol Sulfate (Albuterol Sulfate) 2.5 Mg/0.5 Ml Vial.neb, 2.5 MG INH Q4H Prescribed by: NAVYA TALBOT on 12/25/20 1636 Budesonide/Formoterol Fumarate (Symbicort 160-4.5 Mcg Inhaler) 10.2 Gm Hfa.aer.ad, 2 PUFF INH BID, (Reported) Entered as Reported by: VARINDER MASSEY on 12/21/20 1344 Famotidine (Famotidine) 20 Mg Tablet, 20-40 MG PO DAILY, (Reported) Entered as Reported by: VARINDER MASSEY on 12/21/20 1344 Ferrous Sulfate (Iron) 325 Mg Tablet, 325 MG PO BID, (Reported) Entered as Reported by: VARINDER MASSEY on 12/21/20 1345 Ibuprofen (Advil) 200 Mg Tablet, 400 MG PO Q8H PRN for PAIN-MILD (1-4), (Reported) Entered as Reported by: VARINDER MASSEY on 12/21/20 1344 Omeprazole (Omeprazole) 20 Mg Capsule.dr, 20 MG PO DAILY, (Reported) Entered as Reported by: VARINDER MASSEY on 12/21/20 1344 Prednisone (Prednisone) 20 Mg Tab, 40 MG PO DAILY Prescribed by: NAVYA TALBOT on 12/25/20 1636 Discontinued Medications Ciprofloxacin HCl (Ciprofloxacin HCl) 500 Mg Tablet, 500 MG PO BID, (Reported) Entered as Reported by: VARINDER MASSEY on 12/21/20 1344 Hydrochlorothiazide (Hydrochlorothiazide) 12.5 Mg Tablet, 12.5 MG PO DAILY, (Reported) Entered as Reported by: VARINDER MASSEY on 12/21/20 1344 Nitrofurantoin Monohyd/M-Cryst (Macrobid 100 mg Capsule) 100 Mg Capsule, 1 TAB PO BID Discontinued Reason: No Longer Taking Prescribed by: ABY CONNELL on 04/27/17 1408 Review of Systems Review of Systems Constitutional: No chills, No diaphoresis, No fever, No malaise EENTM: No ear discharge, No ear pain Cardiovascular: No chest pain, No palpitations Gastrointestinal: No abdominal pain, No nausea, No vomiting Genitourinary: No discharge, No dysuria Musculoskeletal: No back pain, No joint pain Psychiatric/Neurological: Denies Anxiety, Denies Depressed All Other Systems Reviewed Negative Unless Noted: Yes Past Qsksfqz-Moweae-Pyrrdw Hx Patient Social History Tobacco Use?: No Use of E-Cig and/or Vaping dev: No Substance use?: No Immunizations Up To Date First/Initial COVID19 Vaccinat: july 08 2020 Second COVID19 Vaccination Leonard: july Seasonal Allergies Seasonal Allergies: No Past Medical History Surgeries: Yes Tubal Ligation Respiratory: Yes COPD Currently Using CPAP: No Currently Using BIPAP: No Cardiac: Yes Hypertension Neurological: No 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 HAS NOT SEEN ANY SPECIALISTS) Musculoskeletal: No Endocrine: No HEENT: No Cancer: No Psychosocial: No Integumentary: Yes Eczema Blood Disorders: Yes (anemia) Family Medical History Alcoholism 19 FATHER Arthritis 19 MOTHER G8 BROTHER Diabetes mellitus 19 MOTHER G8 BROTHER G8 SISTER Physical Exam Vital Signs - First Documented 12/25/20 13:48 Temp 35.9 Pulse 120 Resp 28 B/P (MAP) 143/89 (107) Pulse Ox 99 O2 Delivery Nasal Cannula O2 Flow Rate 2.00 2.00 Capillary Refill : Height: 5'0.00" Weight: 140lbs. 0.0oz. 63.714103sp; 26.66 BMI Method:Stated General Appearance: WD/WN, mild distress Eyes: Bilateral Eye Normal Inspection, Bilateral Eye PERRL, Bilateral Eye EOMI HEENT: PERRL/EOMI, pharynx normal Neck: non-tender, full range of motion, normal inspection Respiratory: no respiratory distress, no accessory muscle use, decreased breath sounds, wheezing (Bilateral) Cardiovascular: normal peripheral pulses, regular rate, rhythm Gastrointestinal: normal bowel sounds, non tender, soft Progress/Results/Core Measures Suspected Sepsis SIRS Temperature: Pulse: Respiratory Rate: Laboratory Tests 12/25/20 14:05: White Blood Count 2.3L Blood Pressure / Mean: Laboratory Tests 12/25/20 14:05: Creatinine 0.57L, Platelet Count 143, Total Bilirubin 4.3H Results/Orders Lab Results Laboratory Tests Test 12/25/20 14:05 12/25/20 14:17 12/25/20 14:37 12/25/20 15:00 Range/Units White Blood Count 2.3 L 4.3-11.0 10^3/uL Red Blood Count 3.18 L 3.80-5.11 10^6/uL Hemoglobin 9.1 L 11.5-16.0 g/dL Hematocrit 27 L 35-52 % Mean Corpuscular Volume 86 80-99 fL Mean Corpuscular Hemoglobin 29 25-34 pg Mean Corpuscular Hemoglobin Concent 33 32-36 g/dL Red Cell Distribution Width 19.1 H 10.0-14.5 % Platelet Count 143 130-400 10^3/uL Mean Platelet Volume 9.4 9.0-12.2 fL Immature Granulocyte % (Auto) 1 % Neutrophils (%) (Auto) 76 H 42-75 % Lymphocytes (%) (Auto) 17 12-44 % Monocytes (%) (Auto) 5 0-12 % Eosinophils (%) (Auto) 0 0-10 % Basophils (%) (Auto) 1 0-10 % Neutrophils # (Auto) 1.8 1.8-7.8 10^3/uL Lymphocytes # (Auto) 0.4 L 1.0-4.0 10^3/uL Monocytes # (Auto) 0.1 0.0-1.0 10^3/uL Eosinophils # (Auto) 0.0 0.0-0.3 10^3/uL Basophils # (Auto) 0.0 0.0-0.1 10^3/uL Immature Granulocyte # (Auto) 0.0 0.0-0.1 10^3/uL Sodium Level 133 L 135-145 MMOL/L Potassium Level 3.2 L 3.6-5.0 MMOL/L Chloride Level 102 98-107 MMOL/L Carbon Dioxide Level 22 21-32 MMOL/L Anion Gap 9 5-14 MMOL/L Blood Urea Nitrogen 2 L 7-18 MG/DL Creatinine 0.57 L 0.60-1.30 MG/DL Estimat Glomerular Filtration Rate 109 BUN/Creatinine Ratio 4 Glucose Level 104 70-105 MG/DL Calcium Level 8.7 8.5-10.1 MG/DL Corrected Calcium 8.7 8.5-10.1 MG/DL Total Bilirubin 4.3 H 0.1-1.0 MG/DL Aspartate Amino Transf (AST/SGOT) 11 5-34 U/L Alanine Aminotransferase (ALT/SGPT) 13 0-55 U/L Alkaline Phosphatase 72 40-136 U/L Troponin I < 0.028 <0.028 NG/ML C-Reactive Protein High Sensitivity 0.04 0.00-0.50 MG/DL B-Type Natriuretic Peptide 68.0 <100.0 PG/ML Total Protein 6.1 L 6.4-8.2 GM/DL Albumin 4.0 3.2-4.5 GM/DL Procalcitonin 0.10 H <0.10 NG/ML Blood Gas Puncture Site UNK Blood Gas Patient Temperature 35.1 Arterial Blood pH 7.45 H 7.37-7.43 Arterial Blood Partial Pressure CO2 32 L 35-45 MMHG Arterial Blood Partial Pressure O2 68 L 79-93 MMHG Arterial Blood HCO3 23 23-27 MMOL/L Arterial Blood Total CO2 24.0 21.0-31.0 MMOL/L Arterial Blood Oxygen Saturation 97 94-100 % Arterial Blood Base Excess -0.9 -2.5-2.5 MMOL/L Douglas Test YES-POS Blood Gas Ventilator Setting NO Blood Gas Inspired Oxygen RA Ammonia 33 H 11-32 UMOL/L Urine Color YELLOW Urine Clarity CLEAR Urine pH 6.0 5-9 Urine Specific [place] 1.015 L 1.016-1.022 Urine Protein NEGATIVE NEGATIVE Urine Glucose (UA) NEGATIVE NEGATIVE Urine Ketones NEGATIVE NEGATIVE Urine Nitrite NEGATIVE NEGATIVE Urine Bilirubin NEGATIVE NEGATIVE Urine Urobilinogen 0.2 < = 1.0 MG/DL Urine Leukocyte Esterase NEGATIVE NEGATIVE Urine RBC (Auto) TRACE-L NEGATIVE Urine RBC RARE /HPF Urine WBC 0-2 /HPF Urine Crystals PRESENT H /LPF Urine Amorphous Sediment RARE RADHIKA URATES H /LPF Urine Bacteria TRACE /HPF Urine Casts NONE /LPF Urine Mucus NEGATIVE /LPF Urine Culture Indicated NO Test 12/25/20 15:14 Range/Units Influenza Type A Antigen NEGATIVE NEGATIVE Influenza Type B Antigen NEGATIVE NEGATIVE My Orders Orders - NAVYA TALBOT Arterial Blood Gas (12/25/20 14:16) Chest 1 View, Ap/Pa Only (12/25/20 14:16) Coronavirus Sars-Cov-2 So 2018 (12/25/20 14:16) Cbc With Automated Diff (12/25/20 14:16) Comprehensive Metabolic Panel (12/25/20 14:16) Hs C Reactive Protein (12/25/20 14:16) Procalcitonin (Pct) (12/25/20 14:16) BNP (12/25/20 14:16) Continuous Ekg Monitoring (12/25/20 14:16) Ekg Tracing (12/25/20 14:16) Troponin I (12/25/20 14:16) Ua Culture If Indicated (12/25/20 14:16) Influenza A & B Antigens (12/25/20 14:19) Ammonia (12/25/20 14:26) Albuterol/Ipra Inhalation Soln (Duoneb I (12/25/20 14:30) Svn Small Volume Nebulizer (12/25/20 14:26) Albuterol/Ipra Inhalation Soln (Duoneb I (12/25/20 14:27) Methylprednisolone Sod Succ (Solu-Medrol (12/25/20 16:45) Medications Given in ED Current Medications Medications Dose Ordered Sig/Diana Route Start Time Stop Time Status Last Admin Dose Admin Albuterol/ Ipratropium 3 ml ONCE ONCE INH 12/25/20 14:30 12/25/20 14:31 DC 12/25/20 14:30 3 ML Vital Signs/I&O 12/25/20 12/25/20 13:48 13:48 Temp 35.9 Pulse 120 Resp 28 B/P (MAP) 143/89 (107) Pulse Ox 99 O2 Delivery Nasal Cannula Nasal Cannula O2 Flow Rate 2.00 2.00 2.00 Capillary Refill : Progress Note #1: Time: 14:32 Progress Note We will getting an ABG to ascertain her CO2 and acid-base balance. Chest x-ray, labs and a DuoNeb for her wheezing. She has a history of significant anemia and was recently in the hospital getting a couple units of blood. Progress Note #2: Time: 16:31 Progress Note With the patient's permission we did discuss the case with her daughter. Her daughter is in agreement that she would benefit from some custodial rehab. The patient however states that she emphatically wants to go home. She is alert oriented x4 and states after the breathing treatment she feels way better. She is not on any oxygen supplementally. We discussed getting her on a nebulizer and she states she does not have funding for it. We can get her provided with a nebulizer and order for some albuterol as it seems like her ProAir is not helping. We also encouraged her to follow-up with her primary care provider at [facility] and discussing may be outpatient physical therapy. She thought that would be a good idea but she was adamant she did not want to stay in the hospital again if she could avoid it. She is not interested in going to a custodial facility. ECG Initial ECG Impression Date: Dec 25, 2020 Initial ECG Impression Time: 14:50 Initial ECG Rate: 107 Initial ECG Rhythm: S.Tach Initial ECG Intervals: Normal Initial ECG Impression: Normal Comment .Sinus tachycardia without clinically relevant ST elevation or depression Diagnostic Imaging Diagonstic Imaging: Xray Plain Films/CT/US/NM/MRI: chest Comments [facility] [place], [place] NAME: SOPHIE MILL[facility] REC#: [id number] PT STATUS: REG ER : 1960 PHYSICIAN: NAVYA TALBOT MD ADMIT DATE: 12/25/20/ER Signed Date of Exam:12/25/20 CHEST 1 VIEW, AP/PA ONLY INDICATION: Shortness of air. COMPARISON: 12/20/2020. FINDINGS: Pleural effusions have nearly completely resolved. Heart size is upper limits but stable. No vascular congestion. No pneumothorax. IMPRESSION: Decreased pleural fluid. No adverse change. Dictated by: Dictated on workstation # [id number] Dict: 12/25/20 1508 Trans: 12/25/20 1613 [id number] Interpreted by: SARTHAK CORRALES Electronically signed by: SARTHAK CORRALES 12/25/20 1613 Reviewed: Reviewed by Me Departure Impression Primary Impression: COPD exacerbation Disposition: 01 HOME, SELF-CARE Condition: Stable Departure-Patient Inst. Decision time for Depature: 16:32 Referrals: COREY LEONARD DO (PCP) Primary Care Physician [facility] (Family) Primary Care Physician Patient Instructions: Oral Steroid Medicines, COPD Exacerbation, Adult ED Add. Discharge Instructions: Prednisone 2 tablets daily for the next 4 days. Albuterol through the nebulizer every 4 hours as needed for wheezing, shortness of air or coughing fits. Follow-up with your primary care provider in the next 2 to 4 weeks. All discharge instructions reviewed with patient and/or family. Voiced understanding. Scripts Albuterol Sulfate (Albuterol Sulfate) 2.5 Mg/0.5 Ml Vial.neb 2.5 MG INH Q4H for SHORTNESS OF BREATH, #50 EACH 0 Refills Prov: NAVYA TALBOT 12/25/20 Prednisone (Prednisone) 20 Mg Tab 40 MG PO DAILY for 4 Days, #8 TAB 0 Refills Prov: NAVYA TALBOT 12/25/20 NAVYA TALBOT Dec 25, 2020 14:24
[2020-12-25 14:27] LABS: BASOPHILS % (AUTO) 1 % (0-10); EOSINOPHILS % (AUTO) 0 % (0-10); HEMATOCRIT 27 % (35-52); HEMOGLOBIN 9.1 g/dL (11.5-16.0); LYMPHOCYTES # (AUTO) 0.4 10^3/uL (1.0-4.0); LYMPHOCYTES % (AUTO) 17 % (12-44); MEAN CORPUSCULAR HEMOGLOBIN 29 pg (25-34); MEAN CORPUSCULAR HGB CONC 33 g/dL (32-36); MEAN CORPUSCULAR VOLUME 86 fL (80-99); MEAN PLATELET VOLUME 9.4 fL (9.0-12.2); MONOCYTES # (AUTO) 0.1 10^3/uL (0.0-1.0); MONOCYTES % (AUTO) 5 % (0-12); NEUTROPHILS # (AUTO) 1.8 10^3/uL (1.8-7.8); NEUTROPHILS % (AUTO) 76 % (42-75); PLATELET COUNT 143 10^3/uL (130-400); WHITE BLOOD COUNT 2.3 10^3/uL (4.3-11.0)
[2020-12-25] MEDS ORDERED: RT-ALBUTEROL/IPRATROPIUM 3 ML (DUONEB) VIAL ONE (14:27)
[2020-12-25 14:28] LABS: ABG BASE EXCESS -0.9 MMOL/L (-2.5-2.5); ABG OXYGEN SATURATION 97 % (94-100); ABG PCO2 32 MMHG (35-45); ABG PH 7.45 (7.37-7.43); ABG PO2 68 MMHG (79-93)
[2020-12-25 14:29] LABS: ALLENS TEST YES-POS; INSPIRED O2 RA; PATIENT TEMP 35.1; VENTILATOR NO
[2020-12-25 14:30] LABS: CHLORIDE 102 MMOL/L (98-107); POTASSIUM 3.2 MMOL/L (3.6-5.0); SODIUM 133 MMOL/L (135-145)
[2020-12-25] MEDS ORDERED: RT-ALBUTEROL/IPRATROPIUM 3 ML (DUONEB) VIAL INH ONE (14:30)
[2020-12-25 14:31] LABS: CALCIUM 8.7 MG/DL (8.5-10.1)
[2020-12-25 14:33] LABS: GLUCOSE 104 MG/DL (70-105); TOTAL PROTEIN 6.1 GM/DL (6.4-8.2)
[2020-12-25 14:34] LABS: BILIRUBIN,TOTAL 4.3 MG/DL (0.1-1.0); CARBON DIOXIDE 22 MMOL/L (21-32)
[2020-12-25 14:36] LABS: ALKALINE PHOSPHATASE 72 U/L (40-136); CREATININE SERUM 0.57 MG/DL (0.60-1.30); GFR ESTIMATED 109
[2020-12-25 14:38] LABS: BUN/CREATININE RATIO 4
[2020-12-25 14:39] LABS: ALANINE AMINOTRANSFERASE 13 U/L (0-55)
--- NOTE | 2020-12-25 15:11 | Diagnostic Imaging Report ---
INDICATION: Shortness of air. COMPARISON: 12/20/2020. FINDINGS: Pleural effusions have nearly completely resolved. Heart size is upper limits but stable. No vascular congestion. No pneumothorax. IMPRESSION: Decreased pleural fluid. No adverse change. Dictated by: Dictated on workstation # [id number]
[2020-12-25 15:21] LABS: BILIRUBIN,URINE NEGATIVE (NEGATIVE); CLARITY,URINE CLEAR; COLOR,URINE YELLOW; GLUCOSE, URINE (UA) NEGATIVE (NEGATIVE); KETONES,URINE NEGATIVE (NEGATIVE); LEUKOCYTE ESTERASE ,URINE NEGATIVE (NEGATIVE); NITRITE,URINE NEGATIVE (NEGATIVE); PROTEIN,URINE NEGATIVE (NEGATIVE)
[2020-12-25 15:30] LABS: AMORPHOUS SEDIMENT,UR RARE AMOR URATES /LPF; BACTERIA,URINE TRACE /HPF; RBC,URINE RARE /HPF; WBC,URINE 0-2 /HPF
[2020-12-25] MEDS ORDERED: PRD20T PO (16:36)
[2020-12-25] MEDS ORDERED: ALB0.5V INH (16:36)
[2020-12-25] MEDS ORDERED: methylPREDNISolone 125 MG (Solu-MEDROL) VIAL IVP ONE (16:45)
[2020-12-25 16:47] VITALS: BP 124/90
== END 2020-12-25 17:01 | disposition home or self-care (01) ==
LOC: EDUNIT# 13:48 → ER 13:53
DX: J44.1 Chronic obstructive pulmonary disease with (acute) exacerbation (principal); I10 Essential (primary) hypertension; Z20.822 Contact with and (suspected) exposure to COVID-19
CPT/HCPCS: 36415; 71045; 80053; 81000; 82140; 82805; 83880; 84145; 84484; 85025; 86141; 87635; 87804; 93005; 96374

== ENCOUNTER → 2021-02-16 | Outpatient (CLI) | payer MEDICAID ==
[~2021-02-16] MED LIST changes: +ALB0.5V INH; +PRD20T PO
[2021-02-16 09:58] LABS: ABSOLUTE RETIC # 123 10e9/uL (24-90); BASOPHILS # (AUTO) 0.1 10^3/uL (0.0-0.1); BASOPHILS % (AUTO) 1 % (0-10); EOSINOPHILS # (AUTO) 0.2 10^3/uL (0.0-0.3); EOSINOPHILS % (AUTO) 4 % (0-10); HEMATOCRIT 31 % (35-52); HEMOGLOBIN 9.5 g/dL (11.5-16.0); LYMPHOCYTES # (AUTO) 0.7 10^3/uL (1.0-4.0); LYMPHOCYTES % (AUTO) 14 % (12-44); MEAN CORPUSCULAR HEMOGLOBIN 28 pg (25-34); MEAN CORPUSCULAR HGB CONC 31 g/dL (32-36); MEAN CORPUSCULAR VOLUME 89 fL (80-99); MEAN PLATELET VOLUME 9.1 fL (9.0-12.2); MONOCYTES # (AUTO) 0.5 10^3/uL (0.0-1.0); MONOCYTES % (AUTO) 10 % (0-12); NEUTROPHILS # (AUTO) 3.4 10^3/uL (1.8-7.8); NEUTROPHILS % (AUTO) 71 % (42-75); PLATELET COUNT 195 10^3/uL (130-400); RETICULOCYTE % 3.57 % (0.50-2.40); WHITE BLOOD COUNT 4.8 10^3/uL (4.3-11.0)
[2021-02-16 10:14] LABS: ALANINE AMINOTRANSFERASE 11 U/L (0-55); ALBUMIN 3.1 GM/DL (3.2-4.5); ALKALINE PHOSPHATASE 84 U/L (40-136); BILIRUBIN,TOTAL 2.7 MG/DL (0.1-1.0); BUN/CREATININE RATIO 4; CALCIUM 8.4 MG/DL (8.5-10.1); CARBON DIOXIDE 29 MMOL/L (21-32); CHLORIDE 100 MMOL/L (98-107); CREATININE SERUM 0.57 MG/DL (0.60-1.30); GFR ESTIMATED 109; GLUCOSE 94 MG/DL (70-105); POTASSIUM 3.4 MMOL/L (3.6-5.0); SODIUM 137 MMOL/L (135-145); TOTAL PROTEIN 5.3 GM/DL (6.4-8.2)
== END ==
LOC: ONC 09:43
PROVIDERS: ATTEND Internal Medicine Hematology & Oncology
DX: D59.12 Cold autoimmune hemolytic anemia (principal); J44.9 Chronic obstructive pulmonary disease, unspecified; I10 Essential (primary) hypertension; E11.9 Type 2 diabetes mellitus without complications; R16.1 Splenomegaly, not elsewhere classified; Z72.0 Tobacco use; Z90.49 Acquired absence of other specified parts of digestive tract
CPT/HCPCS: 80053; 83010; 83615; 85025; 85045; 86157; 99213

== ENCOUNTER → 2021-04-16 | Outpatient (CLI) | payer MEDICAID ==
[2021-04-16 09:40] LABS: ABSOLUTE RETIC # 88 10e9/uL (24-90); BASOPHILS # (AUTO) 0.1 10^3/uL (0.0-0.1); BASOPHILS % (AUTO) 1 % (0-10); EOSINOPHILS # (AUTO) 0.2 10^3/uL (0.0-0.3); EOSINOPHILS % (AUTO) 3 % (0-10); HEMATOCRIT 35 % (35-52); HEMOGLOBIN 11.2 g/dL (11.5-16.0); LYMPHOCYTES # (AUTO) 0.8 10^3/uL (1.0-4.0); LYMPHOCYTES % (AUTO) 15 % (12-44); MEAN CORPUSCULAR HEMOGLOBIN 28 pg (25-34); MEAN CORPUSCULAR HGB CONC 32 g/dL (32-36); MEAN CORPUSCULAR VOLUME 88 fL (80-99); MEAN PLATELET VOLUME 9.4 fL (9.0-12.2); MONOCYTES # (AUTO) 0.4 10^3/uL (0.0-1.0); MONOCYTES % (AUTO) 8 % (0-12); NEUTROPHILS % (AUTO) 74 % (42-75); PLATELET COUNT 219 10^3/uL (130-400); RETICULOCYTE % 2.24 % (0.50-2.40); WHITE BLOOD COUNT 5.5 10^3/uL (4.3-11.0)
[2021-04-16 10:12] LABS: ALANINE AMINOTRANSFERASE 13 U/L (0-55); ALBUMIN 3.6 GM/DL (3.2-4.5); ALKALINE PHOSPHATASE 99 U/L (40-136); BILIRUBIN,TOTAL 4.2 MG/DL (0.1-1.0); BUN/CREATININE RATIO 3; CALCIUM 8.7 MG/DL (8.5-10.1); CARBON DIOXIDE 28 MMOL/L (21-32); CHLORIDE 97 MMOL/L (98-107); CREATININE SERUM 0.61 MG/DL (0.60-1.30); GFR ESTIMATED 100; GLUCOSE 100 MG/DL (70-105); SODIUM 136 MMOL/L (135-145)
== END ==
LOC: ONC 09:32
PROVIDERS: ATTEND Internal Medicine Hematology & Oncology
DX: D59.12 Cold autoimmune hemolytic anemia (principal); J44.9 Chronic obstructive pulmonary disease, unspecified; E11.9 Type 2 diabetes mellitus without complications; I10 Essential (primary) hypertension; Z72.0 Tobacco use; Z90.49 Acquired absence of other specified parts of digestive tract; Z95.5 Presence of coronary angioplasty implant and graft
CPT/HCPCS: 80053; 83615; 85025; 85045; 86157; 99213

== ENCOUNTER → 2021-06-25 | Outpatient (CLI) | payer MEDICARE, MEDICAID ==
[2021-06-25 10:03] LABS: ABSOLUTE RETIC # 120 10e9/uL (24-90); BASOPHILS # (AUTO) 0.1 10^3/uL (0.0-0.1); BASOPHILS % (AUTO) 1 % (0-10); EOSINOPHILS # (AUTO) 0.2 10^3/uL (0.0-0.3); EOSINOPHILS % (AUTO) 4 % (0-10); HEMATOCRIT 34 % (35-52); HEMOGLOBIN 11.1 g/dL (11.5-16.0); LYMPHOCYTES % (AUTO) 16 % (12-44); MEAN CORPUSCULAR HEMOGLOBIN 29 pg (25-34); MEAN CORPUSCULAR HGB CONC 33 g/dL (32-36); MEAN CORPUSCULAR VOLUME 88 fL (80-99); MEAN PLATELET VOLUME 9.7 fL (9.0-12.2); MONOCYTES # (AUTO) 0.5 10^3/uL (0.0-1.0); MONOCYTES % (AUTO) 7 % (0-12); NEUTROPHILS # (AUTO) 4.6 10^3/uL (1.8-7.8); NEUTROPHILS % (AUTO) 71 % (42-75); PLATELET COUNT 198 10^3/uL (130-400); RETICULOCYTE % 3.15 % (0.50-2.40); WHITE BLOOD COUNT 6.4 10^3/uL (4.3-11.0)
[2021-06-25 10:20] LABS: ALBUMIN 3.8 GM/DL (3.2-4.5); CALCIUM 8.9 MG/DL (8.5-10.1); CREATININE SERUM 0.62 MG/DL (0.60-1.30); POTASSIUM 3.4 MMOL/L (3.6-5.0); TOTAL PROTEIN 6.2 GM/DL (6.4-8.2)
== END ==
LOC: ONC 09:43
PROVIDERS: ATTEND Internal Medicine
DX: D59.12 Cold autoimmune hemolytic anemia (principal); E80.6 Other disorders of bilirubin metabolism; J44.9 Chronic obstructive pulmonary disease, unspecified; I10 Essential (primary) hypertension; E11.9 Type 2 diabetes mellitus without complications; Z72.0 Tobacco use
CPT/HCPCS: 36415; 80053; 83615; 85025; 85045; 86157

== ENCOUNTER → 2021-09-11 | Outpatient (CLI) | payer MEDICARE, MEDICAID ==
[~2021-09-11] MED LIST changes: +RT-ALBUTEROL SULF 2.5 MG/3 ML PRE-MIX VIAL INH ONE
== END ==
LOC: RT 09:50
PROVIDERS: ATTEND Nurse Practitioner Family
DX: J44.9 Chronic obstructive pulmonary disease, unspecified (principal)

== ENCOUNTER → 2021-09-11 | Outpatient (CLI) | payer MEDICARE, MEDICAID ==
[~2021-09-11] MED LIST changes: -RT-ALBUTEROL SULF 2.5 MG/3 ML PRE-MIX VIAL INH ONE
== END ==
LOC: CARD 09:48
PROVIDERS: ATTEND Internal Medicine Cardiovascular Disease
DX: I35.1 Nonrheumatic aortic (valve) insufficiency (principal)
CPT/HCPCS: 93306

== ENCOUNTER → 2021-09-20 | Outpatient (CLI) | payer MEDICARE, MEDICAID ==
[~2021-09-20] MED LIST changes: +REGADENOSON 0.4 MG/5 ML SYR (LEXISCAN) IV ONE
[2021-09-20] MEDS: CATHETER FLUSH 10 ML SYR IVP PRN ×2 (07:56→08:59)
[2021-09-20 08:48] VITALS: BP 139/79
--- NOTE | 2021-09-20 19:25 | NUCLEAR STRESS TEST ---
REGADENOSON NUCLEAR STRESS Date of procedure: 09/20/2021. Primary care provider: Mariana Leonard DO Admitting physician: Neymar Muro Jr., MD. INDICATION: Abnormal electrocardiogram. BASELINE ELECTROCARDIOGRAM: Sinus tachycardia at 118 bpm with low voltage in the precordial leads and small, diffuse Q waves. STRESS TEST PROCEDURE: The patient was administered 0.4 mg of intravenous Regadenoson. The resting heart rate was 118 bpm and the peak heart rate was 121 bpm. The resting blood pressure was 139/79 mmHg and the minimum blood pressure was 126/78 mmHg. This represents a normal heart rate and a normal blood pressure response to Regadenoson. The test was stopped due to the protocol. There was no chest discomfort during the test. There were isolated premature ventricular complexes during the test. There were no significant stress induced electrocardiogram changes. NUCLEAR PROCEDURE: The patient was administered 10.9 mCi of intravenous technetium 99m Tetrofosmin at rest for the rest images. The patient was subsequently administered 32.8 mCi of intravenous technetium 99m Tetrofosmin at peak stress for the stress images. Following an appropriate wait after each injection, imaging was obtained. The images were subsequently processed and reformatted in the usual views. Gated imaging was obtained. The image quality was adequate with a mild degree of gastrointestinal attenuation artifact. CT attenuation correction was used as a adjunct to standard imaging. Both the corrected and uncorrected images were reviewed for interpretation. NUCLEAR RESULTS: There was a small, mild intensity, reversible apical defect with a small amount of inducible ischemia. There was normal left ventricular chamber size with an end-diastolic volume of 31 mL and an end-systolic volume of 5 mL. There was no evidence of transient ischemic dilatation. The TID ratio was 1.03. There was normal wall motion in all segments with a calculated ejection fraction of 82%. IMPRESSION: 1. Normal heart rate and blood pressure response to regadenoson. 2. There was no chest discomfort or electrocardiogram changes during the test. 3. There were isolated premature ventricular complexes during stress. 4. There was a small, mild intensity, reversible apical defect with a small amount of inducible ischemia. 5. There was normal wall motion in all segments with a calculated ejection fraction of 82%. 6. This is an abnormal result although represents a low risk for possible future coronary ischemic events. Certain portions of this document may have been dictated utilizing voice recognition technology. Inherent to this technology, typographical and g rammatical errors may exist. As much as I am diligent to identify and correct these mistakes, some errors may remain in the document. NEYMAR MURO JR, MD Sep 20, 2021 19:25
== END ==
LOC: CARD 08:30
PROVIDERS: ATTEND Internal Medicine Cardiovascular Disease
DX: R94.31 Abnormal electrocardiogram [ECG] [EKG] (principal)
CPT/HCPCS: 78452; 93017; A9502

== ENCOUNTER 2021-10-01 09:38 | Outpatient (RCR) | payer MEDICARE, MEDICAID ==
[~2021-10-01 09:38] MED LIST changes: -REGADENOSON 0.4 MG/5 ML SYR (LEXISCAN) IV ONE
[2021-10-01 11:00] LABS: ABSOLUTE RETIC # 115 10e9/uL (24-90); BASOPHILS % (AUTO) 1 % (0-10); EOSINOPHILS # (AUTO) 0.2 10^3/uL (0.0-0.3); EOSINOPHILS % (AUTO) 3 % (0-10); HEMATOCRIT 32 % (35-52); HEMOGLOBIN 10.7 g/dL (11.5-16.0); LYMPHOCYTES # (AUTO) 0.8 10^3/uL (1.0-4.0); LYMPHOCYTES % (AUTO) 15 % (12-44); MEAN CORPUSCULAR HEMOGLOBIN 29 pg (25-34); MEAN CORPUSCULAR HGB CONC 33 g/dL (32-36); MEAN CORPUSCULAR VOLUME 87 fL (80-99); MEAN PLATELET VOLUME 10.1 fL (9.0-12.2); MONOCYTES # (AUTO) 0.3 10^3/uL (0.0-1.0); MONOCYTES % (AUTO) 6 % (0-12); NEUTROPHILS # (AUTO) 4.1 10^3/uL (1.8-7.8); NEUTROPHILS % (AUTO) 75 % (42-75); PLATELET COUNT 215 10^3/uL (130-400); RETICULOCYTE % 3.12 % (0.50-2.40); WHITE BLOOD COUNT 5.5 10^3/uL (4.3-11.0)
[2021-10-01 11:16] LABS: ALBUMIN 3.7 GM/DL (3.2-4.5); BILIRUBIN,TOTAL 3.7 MG/DL (0.1-1.0); CALCIUM 8.5 MG/DL (8.5-10.1); CREATININE SERUM 0.6 MG/DL (0.60-1.30)
[2021-10-01 11:28] LABS: POTASSIUM 2.5 MMOL/L (3.6-5.0)
== END 2021-10-04 | disposition home or self-care (01) ==
LOC: ONC 09:38
PROVIDERS: ATTEND Internal Medicine
DX: E87.6 Hypokalemia (principal); D59.12 Cold autoimmune hemolytic anemia
CPT/HCPCS: 80053; 83010; 83615; 85025; 85045; 86157; G0463; 99213

== ENCOUNTER → 2021-12-24 | Outpatient (CLI) | payer MEDICARE, MEDICAID ==
[2021-12-24 11:05] LABS: EOSINOPHILS # (AUTO) 0.1 10^3/uL (0.0-0.3)
[2021-12-24 11:07] LABS: ABSOLUTE RETIC # 133 10e9/uL (24-90); BASOPHILS # (AUTO) 0.1 10^3/uL (0.0-0.1); BASOPHILS % (AUTO) 1 % (0-10); EOSINOPHILS % (AUTO) 2 % (0-10); HEMATOCRIT 28 % (35-52); HEMOGLOBIN 9.1 g/dL (11.5-16.0); LYMPHOCYTES # (AUTO) 1.1 10^3/uL (1.0-4.0); LYMPHOCYTES % (AUTO) 23 % (12-44); MEAN CORPUSCULAR HEMOGLOBIN 28 pg (25-34); MEAN CORPUSCULAR HGB CONC 33 g/dL (32-36); MEAN CORPUSCULAR VOLUME 85 fL (80-99); MEAN PLATELET VOLUME 10.2 fL (9.0-12.2); MONOCYTES # (AUTO) 0.4 10^3/uL (0.0-1.0); MONOCYTES % (AUTO) 7 % (0-12); NEUTROPHILS # (AUTO) 3.2 10^3/uL (1.8-7.8); NEUTROPHILS % (AUTO) 66 % (42-75); PLATELET COUNT 206 10^3/uL (130-400); RETICULOCYTE % 4.08 % (0.50-2.40); WHITE BLOOD COUNT 4.9 10^3/uL (4.3-11.0)
[2021-12-24 11:50] LABS: ALBUMIN 3.2 GM/DL (3.2-4.5); BILIRUBIN,TOTAL 3.4 MG/DL (0.1-1.0); CALCIUM 8.2 MG/DL (8.5-10.1); CREATININE SERUM 0.59 MG/DL (0.60-1.30); TOTAL PROTEIN 5.2 GM/DL (6.4-8.2)
[2021-12-24 11:53] LABS: POTASSIUM 2.5 MMOL/L (3.6-5.0)
== END ==
LOC: EDSTATUS 10-05 14:43 → ONC 10:30
PROVIDERS: ATTEND Internal Medicine
DX: D59.10 Autoimmune hemolytic anemia, unspecified (principal); E87.6 Hypokalemia; J44.9 Chronic obstructive pulmonary disease, unspecified; E80.6 Other disorders of bilirubin metabolism; E11.9 Type 2 diabetes mellitus without complications; I10 Essential (primary) hypertension; R16.1 Splenomegaly, not elsewhere classified; Z87.19 Personal history of other diseases of the digestive system; Z90.49 Acquired absence of other specified parts of digestive tract; Z72.0 Tobacco use
CPT/HCPCS: 80053; 83010; 83615; 85025; 85045; 86157; G0463; 36415; 99213

== ENCOUNTER 2021-12-27 08:49 | Outpatient (RCR) | payer MEDICARE, MEDICAID ==
[~2021-12-27 08:49] MED LIST changes: +POTASSIUM CHLORIDE INJ 40 MEQ in NS IV 1000 ML 1,000 ML IV ONE
== END 2022-01-04 | disposition home or self-care (01) ==
LOC: ONC 08:49
PROVIDERS: ATTEND Internal Medicine
DX: D59.12 Cold autoimmune hemolytic anemia (principal); R16.1 Splenomegaly, not elsewhere classified; E80.6 Other disorders of bilirubin metabolism; J44.9 Chronic obstructive pulmonary disease, unspecified; E11.9 Type 2 diabetes mellitus without complications; I10 Essential (primary) hypertension
CPT/HCPCS: 36415; 96365; 96366

== ENCOUNTER 2022-01-11 13:50 | Emergency (ER) | payer MEDICARE, MEDICAID ==
[~2022-01-11 13:50] MED LIST changes: -POTASSIUM CHLORIDE INJ 40 MEQ in NS IV 1000 ML 1,000 ML IV ONE
--- NOTE | 2022-01-11 14:35 | ED General ---
General Chief Complaint: General Problems/Pain Stated Complaint: BILAT LEG SWELLING Nursing Triage Note: PT ARRIVAL TO ER WITH COMPLAINT OF BILATERAL THIGH SWELLING X1 WEEK. PT STATES THAT SHE WAS SEEN EARLIER IN WEEK BY PCP WHO TOLD HER TO DRINK MORE WATER AND ELEVATE HER LEGS. PATIENT STATES THAT THERE HAS BEEN NO IMPROVEMENT AND WANTS TO BE SEEN TODAY. PATIENT TAKES WATER PILL. Source of Information: Patient Exam Limitations: No Limitations History of Present Illness Date Seen by Provider: Jan 11, 2022 Time Seen by Provider: 14:15 Initial Comments Patient is a 61-year-old female who presents to the emergency department today with a chief complaint of bilateral lower extremity swelling over the last 7 to 10 days. Patient states it has not gotten any worse over the last several days but she has significant discomfort in her upper thighs where she is swollen. She has a history of COPD, she does not wear supplemental OXYGEN. She does have significant discomfort in her legs especially with walking. Chronic low back pain. She sees Dr. Mruo every 3 months for blood pressure management. 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 She has chronically elevated total bilirubin levels. 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 She is on hydrochlorothiazide 12.5 mg daily but this is not helping her swelling. She states she tries to elevate her legs but this does not help her swelling either. No history of congestive heart failure. On review of the medical record she had a stress echocardiogram done in September 2021. Calculated EF was 82%. She denies chest pain, fevers, chills, productive cough. She does continue to smoke cigarettes, 2 packs/day. She is counseled on smoking cessation. She also denies any dysuria, urgency or frequency. No headaches. No COVID concerns. She is not vaccinated. Room air saturations at presentation are 99%. Blood pressure is good. She is slightly tachycardic with a heart rate of 111. She states that she runs with a rather high heart rate. All other review of systems reviewed and negative except as stated. Timing/Duration: Other (7-10 days) Associated Systoms: Malaise Allergies and Home Medications Allergies Coded Allergies: Penicillins (Verified Allergy, Unknown, 03/14/20) latex (Verified Allergy, Unknown, RASH, 03/14/20) Patient Home Medication List Home Medication List Reviewed: Yes Albuterol Sulfate (Proventil Hfa) 6.7 Gm Hfa.aer.ad, 2 PUFF INH Q4H PRN for SHORTNESS OF BREATH, (Reported) Entered as Reported by: VARINDER MASSEY on 12/21/20 1344 Albuterol Sulfate (Albuterol Sulfate) 2.5 Mg/0.5 Ml Vial.neb, 2.5 MG INH Q4H Prescribed by: NAVYA TALBOT on 12/25/20 1636 Budesonide/Formoterol Fumarate (Symbicort 160-4.5 Mcg Inhaler) 10.2 Gm Hfa.aer.ad, 2 PUFF INH BID, (Reported) Entered as Reported by: VARINDER MASSEY on 12/21/20 1344 Famotidine (Famotidine) 20 Mg Tablet, 20-40 MG PO DAILY, (Reported) Entered as Reported by: VARINDER MASSEY on 12/21/20 1344 Ferrous Sulfate (Iron) 325 Mg Tablet, 325 MG PO BID, (Reported) Entered as Reported by: VARINDER MASSEY on 12/21/20 1345 Furosemide (Lasix) 20 Mg Tablet, 20 MG PO DAILY Prescribed by: LUCIE ROSE on 01/11/22 1600 Ibuprofen (Advil) 200 Mg Tablet, 400 MG PO Q8H PRN for PAIN-MILD (1-4), (Reported) Entered as Reported by: VARINDER MASSEY on 12/21/20 1344 Omeprazole (Omeprazole) 20 Mg Capsule.dr, 20 MG PO DAILY, (Reported) Entered as Reported by: VARINDER MASSEY on 12/21/20 1344 Potassium Chloride (K-Tab ER) 10 Meq Tablet.er, 10 MEQ PO DAILY Prescribed by: LUCIE ROSE on 01/11/22 1602 Prednisone (Prednisone) 20 Mg Tab, 40 MG PO DAILY Prescribed by: NAVYA TALBOT on 12/25/20 1636 Review of Systems Review of Systems Constitutional: see HPI EENTM: no symptoms reported Respiratory: cough, phlegm (occasional non bloody), short of breath Cardiovascular: other (fast heart beat) Gastrointestinal: no symptoms reported Genitourinary: no symptoms reported Musculoskeletal: other (swelling legs R>L) Skin: no symptoms reported Psychiatric/Neurological: No Symptoms Reported All Other Systems Reviewed Negative Unless Noted: Yes Past Oqsmxed-Zzkaol-Pkhpyr Hx Patient Social History Tobacco Use?: Yes Tobacco type used: Cigarettes Smoking Status: Current Everyday Smoker Use of E-Cig and/or Vaping dev: No Substance use?: No Alcohol Use?: No Pt feels they are or have been: No Immunizations Up To Date Influenza Vaccine Up-to-Date: No; Not Current First/Initial COVID19 Vaccinat: july 08 2020 Second COVID19 Vaccination Leonard: july Third COVID19 Vaccination Date: july 08 2020 COVID19 Vaccine Wire 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 HAS NOT SEEN ANY SPECIALISTS) Musculoskeletal: No Endocrine: No HEENT: No Cancer: No Psychosocial: No Integumentary: Yes Eczema Blood Disorders: Yes (anemia) Family Medical History Alcoholism 19 FATHER Arthritis 19 MOTHER G8 BROTHER Diabetes mellitus 19 MOTHER G8 BROTHER G8 SISTER Physical Exam Vital Signs Vital Signs - First Documented 01/11/22 13:56 Pulse 117 Resp 20 B/P (MAP) 143/88 (106) Pulse Ox 98 O2 Delivery Room Air Capillary Refill : Less Than 3 Seconds Height, Weight, BMI Height: 5'0.00" Weight: 140lbs. 0.0oz. [id number]; 19.00 BMI Method:Stated General Appearance: No Apparent Distress, Thin Eyes: Bilateral Eye PERRL, Bilateral Eye EOMI, Bilateral Eye Scleral Icterus Neck: Normal Inspection, Other (no JVD) Respiratory: No Accessory Muscle Use, No Respiratory Distress, Crackles (R>L), Wheezing (scattered exp wheeze bilaterally - auscultated in the anterior lung [place]) Cardiovascular: Regular Rate, Rhythm, Normal Peripheral Pulses, Systolic Murmur (upper sternum bilaterally), Tachycardia Gastrointestinal: Normal Bowel Sounds, Non Tender, Soft Extremity: Pedal Edema (non pitting R>L) Neurologic/Psychiatric: Alert, Oriented x3, No Motor/Sensory Deficits, Normal 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, 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 Norm as Tested Skin: Warm/Dry, Pallor Progress/Results/Core Measures Suspected Sepsis SIRS Temperature: Pulse: 117 Respiratory Rate: 20 Laboratory Tests 01/11/22 14:57: White Blood Count 4.5 Blood Pressure 143 /88 Mean: 106 Laboratory Tests 01/11/22 14:57: Creatinine 0.57L, Platelet Count 240, Total Bilirubin 2.7H Results/Orders Lab Results Laboratory Tests Test 01/11/22 14:57 Range/Units White Blood Count 4.5 4.3-11.0 10^3/uL Red Blood Count 4.17 3.80-5.11 10^6/uL Hemoglobin 11.4 L 11.5-16.0 g/dL Hematocrit 36 35-52 % Mean Corpuscular Volume 86 80-99 fL Mean Corpuscular Hemoglobin 27 25-34 pg Mean Corpuscular Hemoglobin Concent 32 32-36 g/dL Red Cell Distribution Width 22.7 H 10.0-14.5 % Platelet Count 240 130-400 10^3/uL Mean Platelet Volume 10.4 9.0-12.2 fL Immature Granulocyte % (Auto) 0 % Neutrophils (%) (Auto) 66 42-75 % Lymphocytes (%) (Auto) 20 12-44 % Monocytes (%) (Auto) 9 0-12 % Eosinophils (%) (Auto) 3 0-10 % Basophils (%) (Auto) 2 0-10 % Neutrophils # (Auto) 3.0 1.8-7.8 X 10^3 Lymphocytes # (Auto) 0.9 L 1.0-4.0 X 10^3 Monocytes # (Auto) 0.4 0.0-1.0 X 10^3 Eosinophils # (Auto) 0.1 0.0-0.3 10^3/uL Basophils # (Auto) 0.1 0.0-0.1 10^3/uL Immature Granulocyte # (Auto) 0.0 0.0-0.1 10^3/uL Urine Color YELLOW Urine Clarity CLEAR Urine pH 6.0 5-9 Urine Specific Hydes 1.020 1.016-1.022 Urine Protein NEGATIVE NEGATIVE Urine Glucose (UA) NEGATIVE NEGATIVE Urine Ketones NEGATIVE NEGATIVE Urine Nitrite NEGATIVE NEGATIVE Urine Bilirubin NEGATIVE NEGATIVE Urine Urobilinogen 0.2 < = 1.0 MG/DL Urine Leukocyte Esterase 1+ H NEGATIVE Urine RBC (Auto) NEGATIVE NEGATIVE Urine RBC NONE /HPF Urine WBC 5-10 H /HPF Urine Squamous Epithelial Cells 0-2 /HPF Urine Crystals NONE /LPF Urine Bacteria TRACE /HPF Urine Casts NONE /LPF Urine Mucus NEGATIVE /LPF Urine Culture Indicated YES Sodium Level 127 L 135-145 MMOL/L Potassium Level 4.5 3.6-5.0 MMOL/L Chloride Level 97 L 98-107 MMOL/L Carbon Dioxide Level 27 21-32 MMOL/L Anion Gap 3 L 5-14 MMOL/L Blood Urea Nitrogen 4 L 7-18 MG/DL Creatinine 0.57 L 0.60-1.30 MG/DL Estimat Glomerular Filtration Rate 104 BUN/Creatinine Ratio 7 Glucose Level 85 70-105 MG/DL Calcium Level 8.0 L 8.5-10.1 MG/DL Corrected Calcium 8.8 8.5-10.1 MG/DL Total Bilirubin 2.7 H 0.1-1.0 MG/DL Aspartate Amino Transf (AST/SGOT) 79 H 5-34 U/L Alanine Aminotransferase (ALT/SGPT) 66 H 0-55 U/L Alkaline Phosphatase 112 40-136 U/L B-Type Natriuretic Peptide 41.5 <100.0 PG/ML Total Protein 5.3 L 6.4-8.2 GM/DL Albumin 3.0 L 3.2-4.5 GM/DL My Orders Orders - LUCIE ROSE MD Ed Iv/Invasive Line Start (01/11/22 14:39) Cbc With Automated Diff (01/11/22 14:39) Comprehensive Metabolic Panel (01/11/22 14:39) Ekg Tracing (01/11/22 14:39) Chest 1 View, Ap/Pa Only (01/11/22 14:39) Bnp Cassia (01/11/22 14:39) Ua Culture If Indicated (01/11/22 14:39) Us Venous Lower Ext Rt (01/11/22 14:39) Furosemide Injection (Lasix Injection) (01/11/22 14:45) Urine Culture (01/11/22 14:57) Medications Given in ED Current Medications Medications Dose Ordered Sig/Diana Route Start Time Stop Time Status Last Admin Dose Admin Furosemide 20 mg ONCE ONCE IVP 01/11/22 14:45 01/11/22 14:46 DC 01/11/22 14:50 20 MG Vital Signs/I&O 01/11/22 13:56 Pulse 117 Resp 20 B/P (MAP) 143/88 (106) Pulse Ox 98 O2 Delivery Room Air Capillary Refill : Less Than 3 Seconds Blood Pressure Mean: 106 Progress Note : Time: 15:56 Progress Note Patient reassessed, resting comfortably. Scan of the right lower extremity for DVT was negative. Chest x-ray is unremarkable. Labs are reassuring. Her total bilirubin is 2.6. Rest of her labs are unremarkable. She is not anemic. Vital signs are stable. She has urinated 3 or 4 times since her 20 mg of Lasix. We will give her another 3 days to take over the weekend. I encouraged her to follow-up with her primary care physician on Friday. No clinical or objective findings to warrant further studies from the emergency department. No evidence of congestive failure, pneumonia, DVT, sepsis. Counseling-Symptomatic: 3-10 Minutes Follow-up with PCP to: Discuss Further Options Departure Impression Primary Impression: Bilateral lower extremity edema Disposition: HOME, SELF-CARE Condition: Stable Departure-Patient Inst. Decision time for Depature: 15:58 Ref[place]: [facility] [place] Primary Care Physician Patient Instructions: Swelling Add. Discharge Instructions: I have sent a prescription for Lasix 20 mg to your pharmacy. Please take 1 tablet midmorning for the next 3 days, Friday, Friday and Friday. This medication lasts approximately 6 hours. Do not take it in the evening or you will be up all night urinating. I have also prescribed you a little potassium supplement to take with the lasix because the lasix will cause you to pee off your potassium. take one tablet daily. Do not take your hydrochlorothiazide (HCTZ) while taking the lasix. Please call your primary care physician's office on Friday morning for a follow- up appointment next week. Elevate your legs in the evening above the level of your heart to help reduce swelling. Come back to the emergency department for any increased pain, fever, vomiting or other emergent concerning symptoms Scripts Potassium Chloride (K-Tab ER) 10 Meq Tablet.er 10 MEQ PO DAILY for 3 Days, #3 TAB Prov: LUCIE ROSE MD 01/11/22 Furosemide (Lasix) 20 Mg Tablet 20 MG PO DAILY for 3 Days, #3 TAB Prov: LUCIE ROSE MD 01/11/22 Copy Copies To 1: COREY MORALEZ KATHRYN M MD Jan 11, 2022 14:35
[2022-01-11] MEDS ORDERED: FUROSEMIDE 40 MG/4 ML INJ (LASIX) IVP ONE (14:45)
[2022-01-11 15:10] LABS: BASOPHILS # (AUTO) 0.1 10^3/uL (0.0-0.1); BASOPHILS % (AUTO) 2 % (0-10); EOSINOPHILS # (AUTO) 0.1 10^3/uL (0.0-0.3); EOSINOPHILS % (AUTO) 3 % (0-10); HEMATOCRIT 36 % (35-52); HEMOGLOBIN 11.4 g/dL (11.5-16.0); LYMPHOCYTES # (AUTO) 0.9 X 10^3 (1.0-4.0); LYMPHOCYTES % (AUTO) 20 % (12-44); MEAN CORPUSCULAR HEMOGLOBIN 27 pg (25-34); MEAN CORPUSCULAR HGB CONC 32 g/dL (32-36); MEAN CORPUSCULAR VOLUME 86 fL (80-99); MEAN PLATELET VOLUME 10.4 fL (9.0-12.2); MONOCYTES # (AUTO) 0.4 X 10^3 (0.0-1.0); MONOCYTES % (AUTO) 9 % (0-12); NEUTROPHILS % (AUTO) 66 % (42-75); PLATELET COUNT 240 10^3/uL (130-400); WHITE BLOOD COUNT 4.5 10^3/uL (4.3-11.0)
[2022-01-11 15:15] LABS: BILIRUBIN,URINE NEGATIVE (NEGATIVE); CLARITY,URINE CLEAR; COLOR,URINE YELLOW; GLUCOSE, URINE (UA) NEGATIVE (NEGATIVE); KETONES,URINE NEGATIVE (NEGATIVE); LEUKOCYTE ESTERASE ,URINE 1+ (NEGATIVE); NITRITE,URINE NEGATIVE (NEGATIVE); PROTEIN,URINE NEGATIVE (NEGATIVE)
[2022-01-11 15:22] LABS: POTASSIUM 4.5 MMOL/L (3.6-5.0)
[2022-01-11 15:25] LABS: TOTAL PROTEIN 5.3 GM/DL (6.4-8.2)
[2022-01-11 15:27] LABS: BACTERIA,URINE TRACE /HPF; BILIRUBIN,TOTAL 2.7 MG/DL (0.1-1.0); SQUAMOUS EPITHELIAL CELL,UR 0-2 /HPF
--- NOTE | 2022-01-11 15:27 | Diagnostic Imaging Report ---
INDICATION: Right leg pain. Right leg venous Doppler study was performed in the routine fashion with color flow Doppler and waveform analysis. FINDINGS: The right common femoral vein, superficial femoral vein, popliteal vein and visualized portion of the tibial veins show normal compressibility and venous flow patterns. There is normal augmentation. IMPRESSION: No evidence of deep vein thrombosis of the major veins of the right leg. Dictated by: Dictated on workstation # [id number]
[2022-01-11 15:29] LABS: CREATININE SERUM 0.57 MG/DL (0.60-1.30)
--- NOTE | 2022-01-11 15:34 | Diagnostic Imaging Report ---
INDICATION: Swelling. COMPARISON: 12/25/2020. FINDINGS: Single frontal radiographic view of the chest was obtained and demonstrates normal cardiac silhouette and pulmonary vasculature. Lungs show small bibasilar effusions, but are otherwise clear. There is no pneumothorax. Osseous structures show no gross acute abnormalities. IMPRESSION: 1. Small bibasilar effusions. Dictated by: Dictated on workstation # [id number]
[2022-01-11] MEDS ORDERED: FURO-125 PO (16:00)
[2022-01-11] MEDS ORDERED: POTA10TA PO (16:02)
[2022-01-11 16:10] VITALS: BP 134/65
== END 2022-01-11 16:10 | disposition home or self-care (01) ==
LOC: EDUNIT# 13:50 → ER 13:52
DX: R60.0 Localized edema (principal); F17.210 Nicotine dependence, cigarettes, uncomplicated; Z91.040 Latex allergy status
CPT/HCPCS: 36415; 71045; 80053; 81000; 83880; 85025; 87077; 87088; 87186; 93005

== ENCOUNTER 2022-03-18 11:31 | Outpatient (RCR) | payer MEDICARE, MEDICAID ==
[~2022-03-18 11:31] MED LIST changes: +FURO-125 PO; +POTA10TA PO
[2022-03-18 11:50] LABS: ABSOLUTE RETIC # 159 10e9/uL (24-90); BASOPHILS # (AUTO) 0.1 10^3/uL (0.0-0.1); BASOPHILS % (AUTO) 2 % (0-10); EOSINOPHILS # (AUTO) 0.1 10^3/uL (0.0-0.3); EOSINOPHILS % (AUTO) 2 % (0-10); HEMATOCRIT 32 % (35-52); HEMOGLOBIN 10.1 g/dL (11.5-16.0); LYMPHOCYTES % (AUTO) 20 % (12-44); MEAN CORPUSCULAR HEMOGLOBIN 27 pg (25-34); MEAN CORPUSCULAR HGB CONC 31 g/dL (32-36); MEAN CORPUSCULAR VOLUME 88 fL (80-99); MONOCYTES # (AUTO) 0.2 10^3/uL (0.0-1.0); MONOCYTES % (AUTO) 5 % (0-12); NEUTROPHILS # (AUTO) 3.4 10^3/uL (1.8-7.8); NEUTROPHILS % (AUTO) 71 % (42-75); PLATELET COUNT 177 10^3/uL (130-400); RETICULOCYTE % 4.31 % (0.50-2.40); WHITE BLOOD COUNT 4.7 10^3/uL (4.3-11.0)
[2022-03-18 12:27] LABS: ALBUMIN 3.5 GM/DL (3.2-4.5); BILIRUBIN,TOTAL 3.1 MG/DL (0.1-1.0); CALCIUM 8.9 MG/DL (8.5-10.1); CREATININE SERUM 0.65 MG/DL (0.60-1.30); POTASSIUM 3.5 MMOL/L (3.6-5.0); TOTAL PROTEIN 6.3 GM/DL (6.4-8.2)
== END 2022-04-06 | disposition home or self-care (01) ==
LOC: ONC 11:31
PROVIDERS: ATTEND Internal Medicine
DX: D59.12 Cold autoimmune hemolytic anemia (principal); R16.1 Splenomegaly, not elsewhere classified; E80.6 Other disorders of bilirubin metabolism; J44.9 Chronic obstructive pulmonary disease, unspecified; E11.9 Type 2 diabetes mellitus without complications; I10 Essential (primary) hypertension
CPT/HCPCS: 80053; 83010; 83615; 85025; 85045; 86157; G0463; 36415; 99213

== ENCOUNTER 2022-06-25 10:58 | Outpatient (RCR) | payer MEDICARE, MEDICAID ==
[2022-06-17 13:29] LABS: ABSOLUTE RETIC # 114 10e9/uL (24-90); BASOPHILS # (AUTO) 0.1 10^3/uL (0.0-0.1); BASOPHILS % (AUTO) 1 % (0-10); EOSINOPHILS # (AUTO) 0.1 10^3/uL (0.0-0.3); EOSINOPHILS % (AUTO) 3 % (0-10); HEMATOCRIT 33 % (35-52); HEMOGLOBIN 10.8 g/dL (11.5-16.0); LYMPHOCYTES # (AUTO) 0.9 10^3/uL (1.0-4.0); LYMPHOCYTES % (AUTO) 22 % (12-44); MEAN CORPUSCULAR HEMOGLOBIN 28 pg (25-34); MEAN CORPUSCULAR HGB CONC 32 g/dL (32-36); MEAN CORPUSCULAR VOLUME 87 fL (80-99); MONOCYTES # (AUTO) 0.3 10^3/uL (0.0-1.0); MONOCYTES % (AUTO) 8 % (0-12); NEUTROPHILS # (AUTO) 2.6 10^3/uL (1.8-7.8); NEUTROPHILS % (AUTO) 66 % (42-75); PLATELET COUNT 165 10^3/uL (130-400); RETICULOCYTE % 2.97 % (0.50-2.40); WHITE BLOOD COUNT 3.9 10^3/uL (4.3-11.0)
[2022-06-17 13:46] LABS: ALBUMIN 3.7 GM/DL (3.2-4.5); BILIRUBIN,TOTAL 4.8 MG/DL (0.1-1.0); CALCIUM 8.9 MG/DL (8.5-10.1); CREATININE SERUM 0.66 MG/DL (0.60-1.30); TOTAL PROTEIN 6.4 GM/DL (6.4-8.2)
== END 2022-07-05 | disposition home or self-care (01) ==
LOC: ONC 10:58
PROVIDERS: ATTEND Internal Medicine Hematology & Oncology
DX: D59.12 Cold autoimmune hemolytic anemia (principal); R16.1 Splenomegaly, not elsewhere classified; E80.6 Other disorders of bilirubin metabolism; J44.9 Chronic obstructive pulmonary disease, unspecified; E11.9 Type 2 diabetes mellitus without complications; I10 Essential (primary) hypertension; I35.1 Nonrheumatic aortic (valve) insufficiency
CPT/HCPCS: 36415; 80053; 83010; 83615; 85025; 85045; 86157

== ENCOUNTER → 2022-07-10 | Outpatient (CLI) | payer MEDICARE, MEDICAID ==
--- NOTE | 2022-07-10 12:04 | Diagnostic Imaging Report ---
INDICATION: Routine screening. Comparison is made with prior mammogram from 10/27/2020 and 10/30/2016. 2-D and 3-D bilateral screening mammography was performed with CAD. CAD is utilized. The current study was also evaluated with a Computer Aided Detection (CAD) system. Both breasts are heterogeneously dense, limiting the sensitivity of mammography. A benign parenchymal and vascular calcifications are noted bilaterally. No mass or malignant-appearing microcalcifications are identified. Axillae are unremarkable. IMPRESSION: BI-RADS Category 2 No mammographic features suspicious for malignancy are identified. ACR BI-RADS Category 2: Benign findings. Result letter will be mailed to the patient. Note: At least 10% of breast cancer is not imaged by mammography. Dictated by: Dictated on workstation # [id number]
== END ==
LOC: RAD 10:34
PROVIDERS: ATTEND Physician Assistant
DX: Z12.31 Encounter for screening mammogram for malignant neoplasm of breast (principal)
CPT/HCPCS: 77063; 77067

== ENCOUNTER 2022-09-17 10:16 | Outpatient (RCR) | payer MEDICARE, MEDICAID ==
[2022-09-11 10:11] LABS: BASOPHILS # (AUTO) 0.1 10^3/uL (0.0-0.1); BASOPHILS % (AUTO) 1 % (0-10); MEAN CORPUSCULAR VOLUME 89 fL (80-99); MONOCYTES # (AUTO) 0.4 10^3/uL (0.0-1.0); MONOCYTES % (AUTO) 8 % (0-12)
[2022-09-11 10:14] LABS: ABSOLUTE RETIC # 116 10e9/uL (24-90); EOSINOPHILS # (AUTO) 0.1 10^3/uL (0.0-0.3); EOSINOPHILS % (AUTO) 2 % (0-10); HEMATOCRIT 33 % (35-52); HEMOGLOBIN 10.8 g/dL (11.5-16.0); LYMPHOCYTES # (AUTO) 1.1 10^3/uL (1.0-4.0); LYMPHOCYTES % (AUTO) 25 % (12-44); MEAN CORPUSCULAR HEMOGLOBIN 29 pg (25-34); MEAN CORPUSCULAR HGB CONC 33 g/dL (32-36); MEAN PLATELET VOLUME 9.8 fL (9.0-12.2); NEUTROPHILS # (AUTO) 2.7 10^3/uL (1.8-7.8); NEUTROPHILS % (AUTO) 63 % (42-75); PLATELET COUNT 151 10^3/uL (130-400); RETICULOCYTE % 3.16 % (0.50-2.40); WHITE BLOOD COUNT 4.3 10^3/uL (4.3-11.0)
[2022-09-11 10:28] LABS: ALBUMIN 3.6 GM/DL (3.2-4.5); BILIRUBIN,TOTAL 4.3 MG/DL (0.1-1.0); CALCIUM 8.5 MG/DL (8.5-10.1); CREATININE SERUM 0.68 MG/DL (0.60-1.30); POTASSIUM 3.8 MMOL/L (3.6-5.0); TOTAL PROTEIN 6.1 GM/DL (6.4-8.2)
== END 2022-10-04 | disposition home or self-care (01) ==
LOC: ONC 10:16
PROVIDERS: ATTEND Internal Medicine Hematology & Oncology
DX: C18.9 Malignant neoplasm of colon, unspecified (principal); D59.12 Cold autoimmune hemolytic anemia; R16.1 Splenomegaly, not elsewhere classified; J44.9 Chronic obstructive pulmonary disease, unspecified; E11.9 Type 2 diabetes mellitus without complications
CPT/HCPCS: 36415; 80053; 83010; 83615; 85025; 85045; 86157

== ENCOUNTER 2022-12-03 09:31 | Outpatient (RCR) | payer MEDICARE, MEDICAID ==
[~2022-12-03 09:31] MED LIST changes: +POTA-185 PO; -POTA10TA PO
[2022-12-03 10:21] LABS: ABSOLUTE RETIC # 103 10e9/uL (24-90); BASOPHILS # (AUTO) 0.1 10^3/uL (0.0-0.1); BASOPHILS % (AUTO) 1 % (0-10); EOSINOPHILS # (AUTO) 0.1 10^3/uL (0.0-0.3); EOSINOPHILS % (AUTO) 2 % (0-10); HEMATOCRIT 37 % (35-52); HEMOGLOBIN 12.2 g/dL (11.5-16.0); LYMPHOCYTES # (AUTO) 0.9 10^3/uL (1.0-4.0); LYMPHOCYTES % (AUTO) 22 % (12-44); MEAN CORPUSCULAR HEMOGLOBIN 31 pg (25-34); MEAN CORPUSCULAR HGB CONC 33 g/dL (32-36); MEAN CORPUSCULAR VOLUME 95 fL (80-99); MEAN PLATELET VOLUME 12.1 fL (9.0-12.2); MONOCYTES # (AUTO) 0.3 10^3/uL (0.0-1.0); MONOCYTES % (AUTO) 7 % (0-12); NEUTROPHILS # (AUTO) 2.9 10^3/uL (1.8-7.8); NEUTROPHILS % (AUTO) 68 % (42-75); PLATELET COUNT 137 10^3/uL (130-400); RETICULOCYTE % 2.61 % (0.50-2.40); WHITE BLOOD COUNT 4.4 10^3/uL (4.3-11.0)
[2022-12-03 10:38] LABS: ALBUMIN 3.8 GM/DL (3.2-4.5); BILIRUBIN,TOTAL 4.7 MG/DL (0.1-1.0); CALCIUM 8.7 MG/DL (8.5-10.1); CREATININE SERUM 0.66 MG/DL (0.60-1.30); POTASSIUM 3.7 MMOL/L (3.6-5.0); TOTAL PROTEIN 6.2 GM/DL (6.4-8.2)
== END 2022-12-05 | disposition home or self-care (01) ==
LOC: ONC 09:31
PROVIDERS: ATTEND Internal Medicine Hematology & Oncology
DX: D59.12 Cold autoimmune hemolytic anemia (principal); E11.9 Type 2 diabetes mellitus without complications; I10 Essential (primary) hypertension; F17.210 Nicotine dependence, cigarettes, uncomplicated
CPT/HCPCS: 36415; 80053; 83010; 85025; 85045; 86157

== ENCOUNTER 2022-12-10 10:03 | Outpatient (RCR) | payer MEDICARE, MEDICAID | END 2023-01-04 | disposition home or self-care (01) | LOC: ONC 10:03 | PROVIDERS: ATTEND Internal Medicine Hematology & Oncology | DX: D59.12 Cold autoimmune hemolytic anemia (principal); E11.9 Type 2 diabetes mellitus without complications; I10 Essential (primary) hypertension; J44.9 Chronic obstructive pulmonary disease, unspecified | CPT/HCPCS: 99214 ==

== ENCOUNTER → 2023-01-22 | Outpatient (CLI) | payer MEDICARE, MEDICAID ==
[2023-01-22 11:15] LABS: POTASSIUM 4.2 MMOL/L (3.6-5.0)
[2023-01-22 11:16] LABS: ALBUMIN 3.7 GM/DL (3.2-4.5); CALCIUM 8.9 MG/DL (8.5-10.1)
[2023-01-22 11:18] LABS: TOTAL PROTEIN 6.6 GM/DL (6.4-8.2)
[2023-01-22 11:20] LABS: BILIRUBIN,TOTAL 5.6 MG/DL (0.1-1.0)
[2023-01-22 11:22] LABS: CREATININE SERUM 0.68 MG/DL (0.60-1.30)
== END ==
LOC: LAB 10:47
PROVIDERS: ATTEND Internal Medicine Cardiovascular Disease
DX: I10 Essential (primary) hypertension (principal); I25.10 Atherosclerotic heart disease of native coronary artery without angina pectoris; E78.2 Mixed hyperlipidemia; J44.9 Chronic obstructive pulmonary disease, unspecified; Z82.49 Family history of ischemic heart disease and other diseases of the circulatory system; Z72.0 Tobacco use
CPT/HCPCS: 36415; 80053; 80061

== ENCOUNTER → 2023-01-22 | Outpatient (CLI) | payer MEDICARE, SELFPAY ==
--- NOTE | 2023-01-22 14:59 | Diagnostic Imaging Report ---
INDICATION: Family history of ischemic cardiac disease for baseline low-dose limited coronary CT chest. This is interpreted in correlation with formal chest CT performed 03/14/2020. Noncontrasted chest CT performed utilizing a coronary artery protocol. The ascending aorta is aneurysmally dilated 4.5 cm but unchanged from 2020. The descending thoracic aorta just below the ole is 2.8 cm. Aortic root is approximately 3.4 cm. The sinus of Valsalva not clearly changed. There is some thickening of the airways and perihilar bronchial cuffing. There is some heterogeneous air trapping likely small airway disease as well as a component of bronchitis. No suspicious lung mass and no lymphadenopathy is apparent. The visible upper abdomen shows splenomegaly which may be improved in magnitude from the prior. There is a coronary artery atherosclerotic vascular calcifications in the left main LAD, the circumflex as well as the right coronary. Total coronary score is 1342 which is at the 99th percentile for a female patient of this age cohort. Visibly the magnitude of coronary artery calcifications has increased from the prior. IMPRESSION: Extensive coronary artery atherosclerotic vascular calcifications at the 99th percentile for age-matched total score 1342. Stable aneurysmal dilatation of the ascending aorta. Lungs showed some thickening of the airways, peribronchial cuffing and heterogeneous air trapping likely bronchitis in an element of small airway disease. Splenomegaly partly visualized is probably decreased in severity from 2020. Dictated by: Dictated on workstation # [id number]
== END ==
LOC: RAD 10:39
PROVIDERS: ATTEND Internal Medicine Cardiovascular Disease
DX: I25.10 Atherosclerotic heart disease of native coronary artery without angina pectoris (principal); I77.819 Aortic ectasia, unspecified site; J98.4 Other disorders of lung; Z82.49 Family history of ischemic heart disease and other diseases of the circulatory system
CPT/HCPCS: 75571